=== PATIENT | male | born 1960 | race Caucasian/White ===

== ENCOUNTER 2021-03-10 14:59 | Outpatient (REF) | payer OTHER, SELFPAY ==
[2021-03-10 17:07] LABS: Estimated Average Glucose 194 mg/dL; Hemoglobin A1c % 8.4 %
[2021-03-10 17:15] LABS: Creatinine Urine 122.05 mg/dL; Microalbum/Creatinine Ratio Ur 22.9 ug/mg cr
[2021-03-10 17:18] LABS: Alanine Aminotransferase 50 U/L (0-40); Albumin Level 4.3 g/dL (3.5-5.0); Alkaline Phosphatase 48 U/L (39-117); Anion Gap 14 (12-20); Aspartate Amino Transferase 35 U/L (5-37); Bilirubin Total 2.4 mg/dL (0.0-1.0); Blood Urea Nitrogen 14 mg/dL (9-16); Calcium 9.7 mg/dL (8.4-10.2); Carbon Dioxide 28 mmol/L (22-29); Chloride 99 mmol/L (96-108); Estimated Glomerular Filt Rate > 60; Glucose Random 193 mg/dL (60-115); Potassium 3.6 mmol/L (3.3-5.1); Sodium 137 mmol/L (135-145); Total Protein 6.8 g/dL (6.5-8.0)
[2021-03-11 16:56] LABS: LDL Cholesterol Direct 135 mg/dL (<100)
== END 2021-03-10 15:00 | disposition home or self-care (01) ==
LOC: HO.HMGCLDS 14:59
PROVIDERS: PCP Internal Medicine; Visit Provider Internal Medicine
DX: E13.9 Other specified diabetes mellitus without complications (principal); E66.9 Obesity, unspecified; I10 Essential (primary) hypertension; K21.9 Gastro-esophageal reflux disease without esophagitis
CPT/HCPCS: 36415; 80053; 82043; 83036; 83721

== ENCOUNTER 2021-07-05 09:11 | Outpatient (REF) | payer OTHER, SELFPAY ==
[2021-07-05 11:49] LABS: Estimated Average Glucose 140 mg/dL; Hemoglobin A1c % 6.5 %
[2021-07-05 11:52] LABS: Microalbum/Creatinine Ratio Ur 20.1 ug/mg cr
[2021-07-05 12:15] LABS: Alanine Aminotransferase 51 U/L (0-40); Alkaline Phosphatase 43 U/L (39-117); Anion Gap 13 (12-20); Aspartate Amino Transferase 43 U/L (5-37); Bilirubin Total 1.3 mg/dL (0.0-1.0); Blood Urea Nitrogen 9 mg/dL (9-16); Calcium 9.2 mg/dL (8.4-10.2); Carbon Dioxide 26 mmol/L (22-29); Chloride 101 mmol/L (96-108); Cholesterol 197 mg/dL; Estimated Glomerular Filt Rate > 60; Glucose Fasting 178 mg/dL (60-99); HDL Cholesterol 52 mg/dL; LDL Cholesterol Calculated 124 mg/dl; Potassium 3.6 mmol/L (3.3-5.1); Sodium 136 mmol/L (135-145); Total Protein 6.4 g/dL (6.5-8.0); Triglycerides 109 mg/dL
== END 2021-07-05 09:12 | disposition home or self-care (01) ==
LOC: HO.HMGCLDS 09:11
PROVIDERS: PCP Internal Medicine; Visit Provider Internal Medicine
DX: E66.9 Obesity, unspecified (principal); I10 Essential (primary) hypertension; K21.9 Gastro-esophageal reflux disease without esophagitis; E13.9 Other specified diabetes mellitus without complications
CPT/HCPCS: 36415; 80053; 80061; 82043; 83036

== ENCOUNTER 2021-11-01 10:32 | Outpatient (REF) | payer OTHER, SELFPAY ==
[2021-11-01 11:29] LABS: MANUAL DIFF FLAG NO
[2021-11-01 11:39] LABS: Basophils Percent Auto 0.4 % (0-2); Eosinophils Absolute Auto 0.1 X10*3/uL (0.0-0.4); Eosinophils Percent Auto 1.6 % (0-4); Hematocrit 46.1 % (42.0-52.0); Hemoglobin 16.6 g/dl (14.0-18.0); Imm Gran Abs Auto 0.03 X10*3/uL (0.00-0.03); Imm Gran Pct Auto 0.4 % (0.0-0.4); Lymphocytes Absolute Auto 1.4 X10*3/uL (1.2-4.9); Lymphocytes Percent Auto 18.2 % (20-40); Mean Corpuscular Hemoglobin 31.4 pg (27.0-33.0); Mean Corpuscular Volume 87.1 fL (80.0-98.0); Mean Platelet Volume 10.6 fL (9.4-12.4); Monocytes Absolute Auto 0.6 X10*3/uL (0.1-1.2); Monocytes Percent Auto 8.2 % (2-11); Neutrophils Absolute Auto 5.3 x10*3/uL (2.0-8.3); Neutrophils Percent Auto 71.2 % (45-73); Platelet Count 227 X10*3/uL (160-400); Red Blood Count 5.29 X10*6/uL (4.60-5.80); Red Cell Distribution Width 12.3 % (11.0-16.0); White Blood Count 7.5 X10*3/uL (4.8-10.8)
[2021-11-01 11:53] LABS: Estimated Average Glucose 166 mg/dL; Hemoglobin A1c % 7.4 %
[2021-11-01 12:04] LABS: Creatinine Urine 100.27 mg/dL; Microalbum/Creatinine Ratio Ur 19.9 ug/mg cr
[2021-11-01 12:10] LABS: Alanine Aminotransferase 56 U/L (0-40); Albumin Level 4.2 g/dL (3.5-5.0); Alkaline Phosphatase 47 U/L (39-117); Anion Gap 13 (12-20); Aspartate Amino Transferase 43 U/L (5-37); Bilirubin Total 1.7 mg/dL (0.0-1.0); Blood Urea Nitrogen 11 mg/dL (9-16); Calcium 9.7 mg/dL (8.4-10.2); Carbon Dioxide 31 mmol/L (22-29); Chloride 98 mmol/L (96-108); Estimated Glomerular Filt Rate > 60; Glucose Random 196 mg/dL (60-115); Potassium 3.9 mmol/L (3.3-5.1); Sodium 138 mmol/L (135-145); Total Protein 6.7 g/dL (6.5-8.0)
[2021-11-02 08:26] LABS: LDL Cholesterol Direct 144 mg/dL (<100)
== END 2021-11-01 10:33 | disposition home or self-care (01) ==
LOC: HO.HMGCLDS 10:32
PROVIDERS: Visit Provider Internal Medicine
DX: Z00.01 Encounter for general adult medical examination with abnormal findings (principal); E13.9 Other specified diabetes mellitus without complications; I10 Essential (primary) hypertension; K21.9 Gastro-esophageal reflux disease without esophagitis; E66.09 Other obesity due to excess calories; G47.30 Sleep apnea, unspecified
CPT/HCPCS: 36415; 80053; 82043; 83036; 83721; 85025

== ENCOUNTER → 2022-01-04 10:56 | Outpatient (BNVA) | payer OTHER, SELFPAY | PROVIDERS: PCP Internal Medicine; Referring Provider Internal Medicine; Visit Provider Surgery | DX: Z12.11 Encounter for screening for malignant neoplasm of colon (principal) ==

== ENCOUNTER → 2022-03-02 06:26 | Day surgery (SDC) | payer OTHER, SELFPAY ==
--- NOTE | 2022-02-28 13:32 | HO.ANESPROP2 ---
HPI - Anesthesia Eval Consult details Narrative: New onset afib preop. To ED. 61yo M for Colonoscopy with Poss Polypectomy PMFSH Active Problems Active Problems: All Active Problems (Updated 11/01/21 @ 10:31 by Kristine Perez MD) Colon cancer screening (Acute) Possible alcohol use disorder on screening for alcoholism (Acute) Obesity due to excess calories (Acute) Encounter for general adult medical examination with abnormal findings (Acute) Obesity (Acute) Sleep apnea (Acute) Diabetes 1.5, managed as type 2 (Acute) Chronic GERD (Acute) Hypertension, essential (Acute) Past Medical History Medical History Chronic GERD Diabetes 1.5, managed as type 2 ED (erectile dysfunction) Hypertension, essential Obesity Sleep apnea Tremor of both hands Family History Family History Father No problems noted. Mother No problems noted. Brother No problems noted. Brother No problems noted. Brother No problems noted. Son No problems noted. Daughter No problems noted. Surgical History Surgical History History of colonoscopy Umbilical hernia Social History Social History Housing: House Alcohol intake: current Alcohol intake frequency: a few times a week Alcohol type: beer Patient Tobacco Use Status: Former Tobacco user Tobacco use type: Cigarette e-Cigarette/Vaping Use: Never Used Second Hand Smoke Exposure: No service: Yes Current occupational status: retired Cognitive needs: No Hearing needs: No Vision needs: Yes Meds Allergies Allergy/AdvReac Type Severity Reaction Status Date / Time No Known Allergies Allergy Verified 03/06/22 08:29 Exam Exam Date and Time: February 28, 2022 1332 Pertinent Lab Results Pertinent Lab Results: Laboratory Tests 11/01/21 11/01/21 10:37 10:37 WBC 7.5 Hgb 16.6 Hct 46.1 Plt Count 227 Sodium 138 Potassium 3.9 Chloride 98 Carbon Dioxide 31 H BUN 11 Creatinine 1.07 Assessment and Plan Assessment Anesthesia Assessment: Chart Reviewed
[2022-03-02 06:35] VITALS: BMI 34.8
[2022-03-02 06:49] LABS: Glucose, Whole Blood 158 mg/dL (60-115)
[2022-03-02 06:51] VITALS: BP 138/87; PULSE 86; RESP 16; TEMP 36.1; O2SAT 95
--- NOTE | 2022-03-02 07:26 | ECG_ITS ---
Test Reason : ? new onset afib Blood Pressure : / mmHG Vent. Rate : 081 BPM Atrial Rate : 000 BPM P-R Int : 000 ms QRS Dur : 084 ms QT Int : 410 ms P-R-T Axes : 000 -85 -16 degrees QTc Int : 476 ms Atrial fibrillation Left axis deviation Inferior infarct , age undetermined Cannot rule out anteroseptal infarct Abnormal ECG No previous ECGs available Referred By: Lee Ann Abbott Electronically Signed By:Guillermo Alcantar
--- NOTE | 2022-03-02 07:31 | PC.NURSE ---
Addendum entered by Casey Garcia RN 03/02/22 07:59: report given charge nurse Sherri. Addendum entered by Casey Garcia RN 03/02/22 07:54: ekg confirmed AFIB. Dr. Guerrero at bedside. MD to MD given to ER physician. pt being transferred to ER. Original Note: pt rhythm strip noted to look irregular, no p waves noticed and HR ranging from 60-80's. pt denies any hx of AFIB or cardiac issues. pt denies chest pain, palpitations, SOB or dizziness. Dr. Deshpande at bedside to evaluate. EKG ordered at this time.
== END ==
PROVIDERS: PCP Internal Medicine; Visit Provider Surgery
DX: Z12.11 Encounter for screening for malignant neoplasm of colon (principal); Z53.09 Procedure and treatment not carried out because of other contraindication; I10 Essential (primary) hypertension; I48.91 Unspecified atrial fibrillation; E13.9 Other specified diabetes mellitus without complications; Z79.84 Long term (current) use of oral hypoglycemic drugs; Z87.891 Personal history of nicotine dependence
CPT/HCPCS: 82947; 93005

== ENCOUNTER 2022-03-02 08:20 | Emergency (ER) | payer OTHER, SELFPAY ==
--- NOTE | ~2022-03-02 | XR_ITS ---
EXAMINATION: XR CHEST CLINICAL INFORMATION: New onset atrial fibrillation. COMPARISON: 07/14/2019 chest radiographs. TECHNIQUE: 2 views of the chest were obtained. FINDINGS: No significant abnormality is noted involving the heart, lungs, mediastinum, bony thorax or soft tissues. XR/XR chest 2V IMPRESSION: No acute cardiopulmonary process.
--- NOTE | 2022-03-02 08:30 | ED_ITS ---
HPI - General Adult General Chief complaint: Arrhythmia/Palpitations Stated complaint: new onset afib Time Seen by Provider: 03/02/22 08:30 Source: patient Mode of arrival: ambulatory Limitations: no limitations History of Present Illness HPI narrative: Patient is a 61 year old male presenting to the emergency department today for evaluation of his atrial fibrillation. Patient states that he was getting ready to get a colonoscopy when the net development manager noticed that he was in atrial fibrillation. Patient states that he does not have a history of it and so they sent him down here to be evaluated. Patient states that he has a history of hypertension but no history of heart disease and no family history of heart disease. Patient states that he does not have any bleeding disorders or any family history of bleeding disorders. Patient denies any dizziness, lightheadedness, abdominal pain, nausea, vomiting, fever, chills, blurry vision, double vision, loss of vision, chest pain, difficulty breathing, shortness of breath, back pain, night sweats, pain with urination, increased urinary frequency, increased urinary urgency, blood in his urine or stool, syncope or a near syncopal episode, recent trauma or falls, bowel incontinence, bladder incontinence, bowel retention, bladder retention, or any other complaints at this time. Severity scale (1-10): 1 Relieving factors: none Exacerbating factors: none Associated symptoms: denies other symptoms Treatments prior to arrival: none Related Data Previous Rx's Medication Instructions Recorded amlodipine 10 mg tablet 10 mg PO DAILY #90 tabs 10/04/21 omeprazole 20 mg capsule,delayed 20 mg PO DAILY 90 days #90 caps 01/03/22 release sodium,potassium,mag sulfates 17.5 See Rx Instructions PO .COMPLEX 01/04/22 gram-3.13 gram-1.6 gram oral soln #354 mL (Suprep Bowel Prep Kit) glipizide 2.5 mg-metformin 500 mg 1 tab PO DAILY 90 days #90 tabs 02/05/22 tablet hydrochlorothiazide 25 mg tablet 25 mg PO QAM #90 tabs 02/05/22 losartan 50 mg tablet 50 mg PO DAILY #90 tabs 02/05/22 apixaban 5 mg tablet (Eliquis) 5 mg PO BID #30 tabs 03/02/22 Allergies Allergy/AdvReac Type Severity Reaction Status Date / Time No Known Allergies Allergy Verified 01/04/22 11:06 Review of Systems Constitutional: Constitutional: Reports no additional constitutional complaints, Denies chills, Denies fever(s) and Denies night sweats Eyes: Eyes: Reports no additional eye complaints, Denies blurry vision, Denies change in vision, Denies diplopia, Denies eye discharge, Denies loss of vision and Denies eye pain ENT: Denies dizziness Cardiovascular: Cardiovascular: Reports no additional cardiovascular complaints, Denies chest pain, Denies lightheadedness, Denies Loss of Consciousness and Denies dyspnea Respiratory: Respiratory: Reports no additional respiratory complaints and Denies dyspnea Gastrointestinal: Gastrointestinal: Reports no additional gastrointestinal complaints, Denies abdominal pain, Denies melena, Denies hematochezia, Denies change in bowel habits and Denies change in stool character Genitourinary: Genitourinary: Reports no additional male genitourinary complaints, Denies hematuria, Denies oliguria, Denies difficulty urinating, Denies dysuria, Denies urinary frequency, Denies urinary hesitancy, Denies urinary incontinence and Denies urinary urgency Musculoskeletal: Musculoskeletal: Reports no additional musculoskeletal complaints, Denies numbness and Denies tingling Neurologic: Denies dizziness, Denies loss of vision, Denies numbness and Denies tingling Psychiatric: Psychiatric: Reports no additional psychiatric complaints Endocrine: Endocrine: Reports no additional endocrine complaints Hematologic/Lymphatic: Hematologic/Lymphatic: Reports no additional hematologic/lymphatic complaints Allergic/Immunologic: Allergic/Immunologic: Reports no additional allergic/immunologic complaints [facility] Past Medical History Attestation statement: The following information was validated with the patient. Source: old records reviewed Medical History Chronic GERD Diabetes 1.5, managed as type 2 ED (erectile dysfunction) Hypertension, essential Obesity Sleep apnea Tremor of both hands Surgical History History of colonoscopy Umbilical hernia Family History Family History Father No problems noted. Mother No problems noted. Brother No problems noted. Brother No problems noted. Brother No problems noted. Son No problems noted. Daughter No problems noted. Social History Social History Housing: House Alcohol intake: current Alcohol intake frequency: a few times a week Alcohol type: beer Patient Tobacco Use Status: Former Tobacco user Tobacco use type: Cigarette Second Hand Smoke Exposure: No Current occupational status: retired Physical Exam ED Vital Signs: Vital Signs - 24 hr 03/02/22 08:31 03/02/22 10:00 03/02/22 12:20 Pulse Rate 68 75 66 Respiratory Rate 18 14 16 Blood Pressure 129/94 H 126/82 110/72 Pulse Oximetry 96 98 97 Oxygen Delivery Method Room Air Room Air Room Air Const General: cooperative, no acute distress, alert and awake Nutritional Appearance: well nourished Orientation/consciousness: patient oriented x3 Limitations: no limitations HENMT Head: Yes normal to inspection and Yes atraumatic Ears: hearing grossly normal bilaterally and external ears normal General nose exam: Normal external nose present, no nasal discharge noted and no epistaxis Face and sinus: Yes normal facial exam, No abrasion and No laceration Mouth: Normal oral and palatal mucosa present, no drooling and no muffled voice Eyes General: appearance normal, both eyes and all related structures Periorbital: periorbital findings normal Eyelids: Yes eyelids normal Conjunctivae: conjunctivae normal Pupils: Equal, round and reactive pupils present EOM: EOMs intact bilaterally Neck Neck: Yes normal visual inspection, Yes full ROM and Yes no lymphadenopathy Chest Chest palpation & inspection: normal inspection of the chest Resp Effort & Inspection: normal respiratory effort and able to speak in complete sentences Auscultation: clear to auscultation bilaterally Cardio Rate: regular rate Rhythm: abnormal rhythm irregularly irregular GI Inspection: Yes normal to inspection Neuro General: patient oriented x3 and moves all extremities Cranial nerves: Yes Equal, round and reactive pupils present Cognition (Neuro): normal cognition Motor exam (neuro): 5/5 motor strength present throughout Sensory Exam: Normal double simultaneous stimulation for sensation Coordination: [id number] test normal Extrem General: Yes normal to inspection, Yes full ROM and Yes capillary refill normal Psych Appearance: grossly normal Mental Status: mental status grossly normal Affect: normal affect Attitude: cooperative Thought process: Normal thought process present Thought content: Normal thought content present Insight: Good insight present (Psych) Medical Decision Making MDM Narrative Medical decision making narrative: Patient is a 61 year old male presenting to the emergency department today for atrial fibrillation evaluation. Patient's physical exam showed atrial fibrillation at a normal rate but was otherwise unremarkable. Patient's blood work was unremarkable. Patient's urine showed no acute process. Patient's EKG showed atrial fibrillation. Patient's chest x-ray showed no acute process. I spoke to Dr. Alcantar, the net development manager fractionation plant supervisor, who recommended the patient be started on Elqiuis 5mg BID and follow up with him in the office on an outpatient basis. I explained my physical exam findings as well as all test results to the patient. I answered all questions asked by the patient. I stressed the importance of the patient taking his medication as prescribed. I stressed the importance of the patient following up with his primary care provider and a net development manager. I stressed the importance of the patient returning to the emergency department immediately if his symptoms were to worsen or if he were to develop any dizziness, shortness of breath, difficulty breathing, chest pain, blurry vision, loss of vision, nausea, vomiting, abdominal pain, fever, chills, back pain, or any other complaints. Patient verbalized agreement and understanding with this treatment plan and discharge. Differential Diagnosis Differential Diagnosis: atrial fibrillation Medical Records Medical records reviewed: Yes I reviewed the patient's medical records. Lab Data Lab results reviewed: Yes I reviewed the patient's lab results. Result diagrams: 03/02/22 08:48 03/02/22 08:48 Labs: Lab Results 03/02/22 03/02/22 03/02/22 Range/Units 08:48 08:48 08:48 WBC 7.1 (4.8-10.8) X10*3/uL RBC 5.01 (4.60-5.80) X10*6/uL Hgb 15.7 (14.0-18.0) g/dl Hct 43.2 (42.0-52.0) % MCV 86.2 (80.0-98.0) fL MCH 31.3 (27.0-33.0) pg MCHC 36.3 H (31.0-36.0) g/dl RDW 11.9 (11.0-16.0) % Plt Count 180 (160-400) X10*3/uL MPV 10.1 (9.4-12.4) fL Immature Gran % (Auto) 0.3 (0.0-0.4) % Neut % (Auto) 74.7 H (45-73) % Lymph % (Auto) 14.2 L (20-40) % [place] % (Auto) 9.4 (2-11) % Eos % (Auto) 1.0 (0-4) % Baso % (Auto) 0.4 (0-2) % Lymph # (Auto) 1.0 L (1.2-4.9) X10*3/uL [place] # (Auto) 0.7 (0.1-1.2) X10*3/uL Eos # (Auto) 0.1 (0.0-0.4) X10*3/uL Baso # (Auto) 0.0 (0.0-0.2) X10*3/uL Abs Immat Gran (auto) 0.02 (0.00-0.03) X10*3/uL Absolute Neuts (auto) 5.3 (2.0-8.3) x10*3/uL Absolute Nucleated RBC 0.000 (0.0-0.012) X10*3/uL Nucleated RBC % (auto) 0.0 (0.0-0.2) /100WBC PT 12.3 (10.0-13.1) SEC INR 1.1 (0.9-1.1) APTT 34.9 (24.1-38.0) SEC Sodium 135 (135-145) mmol/L Potassium 3.7 (3.3-5.1) mmol/L Chloride 100 (96-108) mmol/L Carbon Dioxide 23 (22-29) mmol/L Anion Gap 16 (12-20) BUN 10 (9-16) mg/dL Creatinine 0.76 (0.5-1.4) mg/dL Estim Creat Clear Calc TNP Estimated GFR > 60 Random Glucose 155 H (60-115) mg/dL Calcium 8.4 D (8.4-10.2) mg/dL Magnesium 1.7 (1.6-2.6) mg/dL Total Bilirubin 1.6 H (0.0-1.0) mg/dL AST 48 H (5-37) U/L ALT 55 H (0-40) U/L Alkaline Phosphatase 32 L D (39-117) U/L Troponin I High Sens (<3.5-35.0) ng/L Total Protein 5.3 L D (6.5-8.0) g/dL Albumin 3.4 L (3.5-5.0) g/dL Urine Color Urine Appearance Urine pH (5.0-8.0) Ur Specific [place] (1.005-1.025) Urine Protein (NEG-TRACE) MG/DL Urine Glucose (UA) (NEG) MG/DL Urine Ketones (NEG) MG/DL Urine Blood (NEG) Urine Nitrite (NEG) Ur Leukocyte Esterase (NEG) COVID-19 ([facility]) (Negative) COVID-19 Clin Com 03/02/22 03/02/22 03/02/22 Range/Units 08:48 08:48 11:27 WBC (4.8-10.8) X10*3/uL RBC (4.60-5.80) X10*6/uL Hgb (14.0-18.0) g/dl Hct (42.0-52.0) % MCV (80.0-98.0) fL MCH (27.0-33.0) pg MCHC (31.0-36.0) g/dl RDW (11.0-16.0) % Plt Count (160-400) X10*3/uL MPV (9.4-12.4) fL Immature Gran % (Auto) (0.0-0.4) % Neut % (Auto) (45-73) % Lymph % (Auto) (20-40) % [place] % (Auto) (2-11) % Eos % (Auto) (0-4) % Baso % (Auto) (0-2) % Lymph # (Auto) (1.2-4.9) X10*3/uL [place] # (Auto) (0.1-1.2) X10*3/uL Eos # (Auto) (0.0-0.4) X10*3/uL Baso # (Auto) (0.0-0.2) X10*3/uL Abs Immat Gran (auto) (0.00-0.03) X10*3/uL Absolute Neuts (auto) (2.0-8.3) x10*3/uL Absolute Nucleated RBC (0.0-0.012) X10*3/uL Nucleated RBC % (auto) (0.0-0.2) /100WBC PT (10.0-13.1) SEC INR (0.9-1.1) APTT (24.1-38.0) SEC Sodium (135-145) mmol/L Potassium (3.3-5.1) mmol/L Chloride (96-108) mmol/L Carbon Dioxide (22-29) mmol/L Anion Gap (12-20) BUN (9-16) mg/dL Creatinine (0.5-1.4) mg/dL Estim Creat Clear Calc Estimated GFR Random Glucose (60-115) mg/dL Calcium (8.4-10.2) mg/dL Magnesium (1.6-2.6) mg/dL Total Bilirubin (0.0-1.0) mg/dL AST (5-37) U/L ALT (0-40) U/L Alkaline Phosphatase (39-117) U/L Troponin I High Sens < 3.5 (<3.5-35.0) ng/L Total Protein (6.5-8.0) g/dL Albumin (3.5-5.0) g/dL Urine Color YELLOW Urine Appearance CLEAR Urine pH 6.0 (5.0-8.0) Ur Specific [place] 1.015 (1.005-1.025) Urine Protein NEG (NEG-TRACE) MG/DL Urine Glucose (UA) NEG (NEG) MG/DL Urine Ketones 5 (NEG) MG/DL Urine Blood NEG (NEG) Urine Nitrite NEG (NEG) Ur Leukocyte Esterase NEG (NEG) COVID-19 ([facility]) Negative (Negative) COVID-19 Clin Com See Note Imaging Data Chest x-ray: Attestation: I personally reviewed and interpreted this imaging study as follows: My impression: No acute process. Radiologist's impression: EXAMINATION: XR CHEST CLINICAL INFORMATION: New onset atrial fibrillation. COMPARISON: 07/14/2019 chest radiographs. TECHNIQUE: 2 views of the chest were obtained. FINDINGS: No significant abnormality is noted involving the heart, lungs, mediastinum, bony thorax or soft tissues. XR/XR chest 2V IMPRESSION: No acute cardiopulmonary process. Dictated By: Santi Hook MD Signed By: Electronically signed by Santi Hook MD 03/02/22 1200 ECG Data Attestation: I personally reviewed and interpreted this ECG as follows: Prior ECG tracings: available for review Interpretation: Vent. Rate: 075 BPM ? ? Atrial Rate: 000 BPM P-R Int: 000 ms? QRS Dur: 098 ms QT Int: 402 ms ? ? ? P-R-T Axes: 000 259 112 degrees QTc Int: 448 ms ? Atrial fibrillation Right superior axis deviation Inferior infarct (cited on or before 02-MAR-2022) Possible Anterior infarct (cited on or before 02-MAR-2022) Abnormal ECG When compared with ECG of 02-MAR-2022 07:38, Nonspecific T wave abnormality, worse in Lateral leads DD/ [id number] Discharge Plan Discharge Clinical Impression: Atrial fibrillation Patient Disposition: Home, Self-Care Instructions: A-fib (Atrial Fibrillation) (DC), Blood Thinners (ED) Additional Instructions: Follow up with your primary care provider and a net development manager. Return to the emergency department immediately if you develop any dizziness, shortness of breath, difficulty breathing, chest pain, blurry vision, loss of vision, nausea, vomiting, abdominal pain, fever, chills, back pain, or any other complaints. Prescriptions: New Eliquis 5 mg tablet 5 mg PO BID Qty: 30 0RF No Action amlodipine 10 mg tablet 10 mg PO DAILY Qty: 90 3RF omeprazole 20 mg capsule,delayed release(DR/EC) 20 mg PO DAILY 90 Days Qty: 90 0RF glipizide-metformin 2.5-500 mg tablet 1 tab PO DAILY 90 Days Qty: 90 3RF hydrochlorothiazide 25 mg tablet 25 mg PO QAM Qty: 90 0RF losartan 50 mg tablet 50 mg PO DAILY Qty: 90 0RF Suprep Bowel Prep Kit 17.5-3.13-1.6 gram recon soln See Rx Instructions PO .COMPLEX Qty: 354 0RF Rx Instructions: DILUTE; drink full amount early evening before AND next morning at least 2 hr before procedure; follow w 32 oz. water PO Referrals: [facility] [Provider Group] (Call to follow up with cardiology. The net development manager you saw in the hospital today was Dr. Alcantar. ) Kristine Perez MD [Primary Care Provider] - (Follow up with your primary care provider. ) Interventions: ED Discharge Assessment Last Done: 03/02/22 12:59 Discharge Date/Time: 03/02/22 12:45 Print Language: Mexican
--- NOTE | 2022-03-02 08:30 | ECG_ITS ---
Test Reason : arrhythmia Blood Pressure : / mmHG Vent. Rate : 075 BPM Atrial Rate : 000 BPM P-R Int : 000 ms QRS Dur : 098 ms QT Int : 402 ms P-R-T Axes : 000 259 112 degrees QTc Int : 448 ms Atrial fibrillation Right superior axis deviation Inferior infarct (cited on or before 02-MAR-2022) Possible Anterior infarct (cited on or before 02-MAR-2022) Abnormal ECG When compared with ECG of 02-MAR-2022 07:38, Nonspecific T wave abnormality, worse in Lateral leads Referred By: Marce Busby Electronically Signed By:Guillermo Alcantar
[2022-03-02 08:31] VITALS: BP 129/94; PULSE 68; RESP 18; O2SAT 96
[2022-03-02 08:53] LABS: MANUAL DIFF FLAG NO
[2022-03-02 08:54] LABS: Basophils Percent Auto 0.4 % (0-2); Eosinophils Absolute Auto 0.1 X10*3/uL (0.0-0.4); Hematocrit 43.2 % (42.0-52.0); Hemoglobin 15.7 g/dl (14.0-18.0); Imm Gran Abs Auto 0.02 X10*3/uL (0.00-0.03); Imm Gran Pct Auto 0.3 % (0.0-0.4); Lymphocytes Percent Auto 14.2 % (20-40); Mean Corpuscular HGB Conc 36.3 g/dl (31.0-36.0); Mean Corpuscular Hemoglobin 31.3 pg (27.0-33.0); Mean Corpuscular Volume 86.2 fL (80.0-98.0); Mean Platelet Volume 10.1 fL (9.4-12.4); Monocytes Absolute Auto 0.7 X10*3/uL (0.1-1.2); Monocytes Percent Auto 9.4 % (2-11); Neutrophils Absolute Auto 5.3 x10*3/uL (2.0-8.3); Neutrophils Percent Auto 74.7 % (45-73); Platelet Count 180 X10*3/uL (160-400); Red Blood Count 5.01 X10*6/uL (4.60-5.80); Red Cell Distribution Width 11.9 % (11.0-16.0); White Blood Count 7.1 X10*3/uL (4.8-10.8)
[2022-03-02 08:59] LABS: INTERNATIONAL NORM RATIO 1.1 (0.9-1.1); Prothrombin Time 12.3 SEC (10.0-13.1)
[2022-03-02 09:02] LABS: Partial Thromboplastin Time 34.9 SEC (24.1-38.0)
[2022-03-02 09:08] LABS: Alanine Aminotransferase 55 U/L (0-40); Albumin Level 3.4 g/dL (3.5-5.0); Alkaline Phosphatase 32 U/L (39-117); Anion Gap 16 (12-20); Aspartate Amino Transferase 48 U/L (5-37); Bilirubin Total 1.6 mg/dL (0.0-1.0); Blood Urea Nitrogen 10 mg/dL (9-16); Calcium 8.4 mg/dL (8.4-10.2); Carbon Dioxide 23 mmol/L (22-29); Chloride 100 mmol/L (96-108); Estimated Glomerular Filt Rate > 60; Glucose Random 155 mg/dL (60-115); Magnesium 1.7 mg/dL (1.6-2.6); Potassium 3.7 mmol/L (3.3-5.1); Sodium 135 mmol/L (135-145); Total Protein 5.3 g/dL (6.5-8.0)
[2022-03-02 09:11] LABS: COVID-19 Test Negative (Negative); IDNOW Serial# 16C4AD1C
[2022-03-02 09:14] LABS: Troponin-I High Sensitivity < 3.5 ng/L (<3.5-35.0)
[2022-03-02 10:00] VITALS: BP 126/82; PULSE 75; RESP 14; O2SAT 98
[2022-03-02 10:07] VITALS: PULSE 68
--- NOTE | 2022-03-02 10:36 | PM.CNCAR ---
History of Present Illness History of Present Illness Date of Service: 03/02/22 Chief complaint: new onset afib Narrative: Pleasant 61-year-old gentleman who came for screening colonoscopy and was noted to be in atrial fibrillation. His rates are well controlled. He has no symptoms. Sent to the emergency department further workup. Denying chest pain or shortness of breath. He has not been as active as he was last year. He has not started biking which he was doing last year. With his day-to-day activities he has not noticed any significant shortness of breath or fatigue. He has diabetes and hypertension. No bleeding issues in the past. [facility] Past Medical History Medical History Chronic GERD Diabetes 1.5, managed as type 2 ED (erectile dysfunction) Hypertension, essential Obesity Sleep apnea Tremor of both hands Family History Family History Father No problems noted. Mother No problems noted. Brother No problems noted. Brother No problems noted. Brother No problems noted. Son No problems noted. Daughter No problems noted. Surgical History Surgical History History of colonoscopy Umbilical hernia Social History Social History Housing: House Alcohol intake: current Alcohol intake frequency: a few times a week Alcohol type: beer Patient Tobacco Use Status: Former Tobacco user Tobacco use type: Cigarette Second Hand Smoke Exposure: No Use of substances other than those prescribed or required for medical reasons: No Advance Directives: No Advance Directives Information Provided: Yes Current occupational status: retired [employer] Allergies Allergy/AdvReac Type Severity Reaction Status Date / Time No Known Allergies Allergy Verified 01/04/22 11:06 Physical Exam Vital Signs: Vital Signs: Last Vital Signs Pulse 75 03/02/22 10:00 Resp 14 03/02/22 10:00 BP 126/82 03/02/22 10:00 Pulse Ox 98 03/02/22 10:00 O2 Del Method 03/02/22 10:00 GENERAL APPEARANCE: in no acute distress, pleasant. NECK: no carotid bruit, no jugular venous distention. SKIN: no suspicious lesions, warm and dry. HEART: no murmurs, irregularly irregular rate and rhythm. LUNGS: clear to auscultation bilaterally. ABDOMEN: soft, nontender. EXTREMITIES: no edema. PERIPHERAL PULSES: equal. NEUROLOGIC: No gross deficits, AAO X 3 Objective Labs and Meds Result diagrams: 03/02/22 08:48 03/02/22 08:48 Lab results: Laboratory Results - last 24 hr 03/02/22 03/02/22 03/02/22 08:48 08:48 08:48 WBC 7.1 RBC 5.01 Hgb 15.7 Hct 43.2 MCV 86.2 MCH 31.3 MCHC 36.3 H RDW 11.9 Plt Count 180 MPV 10.1 Immature Gran % (Auto) 0.3 Neut % (Auto) 74.7 H Lymph % (Auto) 14.2 L [place] % (Auto) 9.4 Eos % (Auto) 1.0 Baso % (Auto) 0.4 Lymph # (Auto) 1.0 L [place] # (Auto) 0.7 Eos # (Auto) 0.1 Baso # (Auto) 0.0 Abs Immat Gran (auto) 0.02 Absolute Neuts (auto) 5.3 Absolute Nucleated RBC 0.000 Nucleated RBC % (auto) 0.0 PT 12.3 INR 1.1 APTT 34.9 Sodium 135 Potassium 3.7 Chloride 100 Carbon Dioxide 23 Anion Gap 16 BUN 10 Creatinine 0.76 Estim Creat Clear Calc TNP Estimated GFR > 60 Random Glucose 155 H Calcium 8.4 D Magnesium 1.7 Total Bilirubin 1.6 H AST 48 H ALT 55 H Alkaline Phosphatase 32 L D Troponin I High Sens Total Protein 5.3 L D Albumin 3.4 L COVID-19 ([facility]) COVID-19 Clin Com 03/02/22 03/02/22 08:48 08:48 WBC RBC Hgb Hct MCV MCH MCHC RDW Plt Count MPV Immature Gran % (Auto) Neut % (Auto) Lymph % (Auto) [place] % (Auto) Eos % (Auto) Baso % (Auto) Lymph # (Auto) [place] # (Auto) Eos # (Auto) Baso # (Auto) Abs Immat Gran (auto) Absolute Neuts (auto) Absolute Nucleated RBC Nucleated RBC % (auto) PT INR APTT Sodium Potassium Chloride Carbon Dioxide Anion Gap BUN Creatinine Estim Creat Clear Calc Estimated GFR Random Glucose Calcium Magnesium Total Bilirubin AST ALT Alkaline Phosphatase Troponin I High Sens < 3.5 Total Protein Albumin COVID-19 ([facility]) Negative COVID-19 Clin Com See Note Assessment and Plan (1) PAF (paroxysmal atrial fibrillation): Status: Acute Plan Pleasant 61-year-old gentleman who is presenting for new onset atrial fibrillation. He is asymptomatic. Rate controlled currently. Clinically not in heart failure. Chads Vasc is 2 and he should be started on anticoagulation with Eliquis or Xarelto. Can go home. We will arrange echocardiogram and 3 days Holter monitor for him and bring him in the office. Thank you for allowing me to participate in the care of your patient. Please feel free to contact me if you have any questions. Procedures Date of Service Date of Service: 03/02/22
[2022-03-02 11:36] LABS: Appearance Urine CLEAR; Color Urine YELLOW; Glucose Urine UA NEG (NEG); Leukocyte Esterase Urine NEG (NEG); Nitrite Urine NEG (NEG); Specific Gravity - Urine 1.015 (1.005-1.025); Urine Blood NEG (NEG); Urine Ketones 5 MG/DL (NEG); Urine Protein NEG (NEG-TRACE)
[2022-03-02 12:20] VITALS: BP 110/72; PULSE 66; RESP 16; O2SAT 97
== END 2022-03-02 12:45 | disposition home or self-care (01) ==
PROVIDERS: Physician Assistant Medical; Emergency Provider Emergency Medicine; PCP Internal Medicine
DX: I48.91 Unspecified atrial fibrillation (principal); Z20.822 Contact with and (suspected) exposure to COVID-19; I10 Essential (primary) hypertension; E13.9 Other specified diabetes mellitus without complications; Z87.891 Personal history of nicotine dependence
CPT/HCPCS: 71046; 80053; 81003; 83735; 84484; 85025; 85610; 85730; 87635; 93005; 99284

== ENCOUNTER → 2022-03-08 14:46 | Outpatient (REF) | payer OTHER, SELFPAY ==
--- NOTE | 2022-03-08 14:54 | CA_ITS ---
Transthoracic Echocardiogram Patient (Last, First, Middle): Nolan Nj, Gender: Male Date of : 1960 Age: 61 Procedure Date: 03/08/2022 Procedure Type: Transthoracic Echocardiogram Location: OP Height: 180.34 cm Weight: 113.4 kg BSA: 2.32 m2 Heart Rate: bpm BP: 134 / 78 mmHg Consumer Affairs Specialist: [place] Referring MD: Guillermo Alcantar MD Cover Cutter Machine: Shai Beckman MD Symptoms: I48.0 - Paroxysmal atrial fibrillation Study Quality: Fair ECG Rhythm: Atrial Fibrillation Conclusions: - 1. Normal LV systolic function with LVEF of 60 65% 2. Mildly dilated left atrium 3. Normal cardiac valvular Doppler 4. No gross pericardial effusion Findings Left Ventricle Normal left ventricular size, thickness, and systolic function. The visually estimated ejection fraction is between 60-65%. Diastolic function is indeterminate on the basis of available data. E/E prime ratio is between 8 and 15 consistent with indeterminate filling pressures. Right Ventricle Normal right ventricular cavity size. Atria The left atrium is mildly dilated. Interatrial shunt cannot be excluded. The right atrium was not well visualized. Aortic Valve The aortic valve structure and function is likely normal. There is no aortic valve stenosis. There is no aortic valve regurgitation. Mitral Valve Likely normal mitral valve structure and function. There is trace mitral valve regurgitation. There is no mitral valve stenosis. Pulmonic Valve The pulmonic valve was not well visualized. Tricuspid Valve The tricuspid valve was not well visualized. Tricuspid regurgitation envelope is inadequate for calculation of right ventricular systolic pressure. Normal right atrial pressure. Great Vessels All visible segments of the aorta are normal in size. The pulmonary artery was not well visualized. Venous The inferior vena cava is normal in size and collapses greater than 50% with inspiration. Pericardium/Pleural There is no evidence of pericardial effusion. Prior Study Comparison No prior study available for comparison. Measurements 2D Linear Measurements IVSd: 1.03 0.6-0.9/0.6-1.0 cm LVIDd: 4.93 3.9-5.3/4.2-5.9 cm LVIDd Index: 2.13 2.4-3.2/2.2-3.1 cm/m2 LVIDs: 3.12 2.0-3.6 cm LVPWd: 1.01 0.7-1.1 cm LA Diam: 4.20 2.7-3.8/3.0-4.0 cm LAIDs Index: 1.81 1.5-2.3 cm/m2 LV Mass: 227.54 67-162/88-224 g LV Mass Index: 98.08 43-95/49-115 g/m2 LVOT Diam: 2.20 3.0+(-)1.3 cm 2D Systolic Function EF 4C: 59.70 >55% EF 2C: 65.90 >55% EF BiP: 62.70 >55% Mitral Valve MV Pk E: 1.20 MV Decel Time: 189.00 E'Lateral: 10.00 E'Medial: 9.68 E/E' Med: 12.40 E/E' Lat: 12.00 PHT: 55.00 MVA PHT: 4.00 Decel Williams: 6.36 Aortic Valve AoV Pk Perfecto: 1.47 AoV Mn Perfecto: 0.95 AoV VTI: 0.30 AoV Pk Grad: 9.00 Aov Mn Grad: 4.00 CAMPOS Cont.VTI: 2.47 LVOT LVOT Pk Perfecto: 0.93 LVOT Mn Perfecto: 0.62 LVOT VTI: 0.20 LVOT Pk Grad: 3.00 LVOT Mn Grad: 2.00 LVOT Diam: 2.20 LVOT Area: 3.80 Diastolic Function MV Pk E: 1.20 E'Medial: 9.68 E/E' Med: 12.40 E' Laterial: 10.00 E/E' Lat: 12.00 Right Ventricle TAPSE (mm): 21.40 TVS' Perfecto: 13.40 Tricuspid Valve RA Press: 3.00 Great Vessels Aorta Sinus of Valsalva: 3.60 2.0-3.[address] [place]: 2.99 1.7-3.4 cm Ao Asc: 3.30 2.1-3.4 cm Updated in Other Vendor System with Status of Final Shai Beckman MD electronically signed on 03/09/2022 11:34:47 AM with status of Final
--- NOTE | 2022-03-08 14:54 | HM_ITS ---
Conclusion: 1. Patient was monitored for total period of 3 days and 8 hours 2. Baseline was atrial fibrillation with average heart of 60 beats per minute with good heart rate control 3. No significant pauses or bradycardia noted 4. Seven episodes of 3-4 beat donya of nonsustained VT, fastest 156 beats per minute 5. Total of 187 PVCs accounting for 0.06% of total beats account for rare PVCs 6. No patient reported events MTDD
== END ==
LOC: HO.CARD 14:46
PROVIDERS: PCP Internal Medicine; Visit Provider Internal Medicine Cardiovascular Disease
DX: I48.0 Paroxysmal atrial fibrillation (principal)
CPT/HCPCS: 93242; 93306

== ENCOUNTER → 2022-04-25 14:06 | Outpatient (BNVA) | payer OTHER, SELFPAY | PROVIDERS: PCP Internal Medicine; Referring Provider Internal Medicine; Visit Provider Internal Medicine Cardiovascular Disease | DX: I48.0 Paroxysmal atrial fibrillation (principal) | CPT/HCPCS: 93005; 99212 ==

== ENCOUNTER → 2022-06-27 13:25 | Outpatient (BNVA) | payer OTHER, SELFPAY | PROVIDERS: PCP Internal Medicine; Referring Provider Internal Medicine; Visit Provider Internal Medicine Cardiovascular Disease | DX: I48.0 Paroxysmal atrial fibrillation (principal); I10 Essential (primary) hypertension | CPT/HCPCS: 93005; 99212 ==

== ENCOUNTER 2022-06-29 06:25 | Day surgery (SDC) | payer OTHER, SELFPAY ==
--- NOTE | 2022-06-28 08:53 | HO.ANESPROP2 ---
Documented by User: Betzaida Jo NP 06/28/22 08:56 HPI - Anesthesia Eval Consult details Narrative: 61yo M for Colonoscopy Per cardiology, low to intermed risk, will plan cardioversion after resuming eliquis post-colo Previously found new afib preop 02/2022 Eliquis for afib PMFSH Active Problems Active Problems: All Active Problems (Updated 03/06/22 @ 09:06 by Kristine Perez MD) Hospital discharge follow-up (Acute) New onset atrial fibrillation (Acute) PAF (paroxysmal atrial fibrillation) (Acute) Colon cancer screening (Acute) Possible alcohol use disorder on screening for alcoholism (Acute) Obesity due to excess calories (Acute) Encounter for general adult medical examination with abnormal findings (Acute) Obesity (Acute) Sleep apnea (Acute) Diabetes 1.5, managed as type 2 (Acute) Chronic GERD (Acute) Hypertension, essential (Acute) Past Medical History Medical History Chronic GERD Diabetes 1.5, managed as type 2 ED (erectile dysfunction) Hypertension, essential Obesity Sleep apnea Tremor of both hands Family History Family History Father No problems noted. Mother No problems noted. Brother No problems noted. Brother No problems noted. Brother No problems noted. Son No problems noted. Daughter No problems noted. Surgical History Surgical History History of colonoscopy Umbilical hernia Social History Social History Housing: House Alcohol intake: current Alcohol intake frequency: former alcohol drinker Alcohol type: beer Patient Tobacco Use Status: Former Tobacco user Quit Date: 1989 Tobacco use type: Cigarette Years Smoked: 20 +/- e-Cigarette/Vaping Use: Never Used Second Hand Smoke Exposure: No Use of substances other than those prescribed or required for medical reasons: No Are you DNR?: No Advance Directives: No Advance Directives Information Provided: Yes Recently lost weight without trying: No service: Yes Current occupational status: retired Cognitive needs: No Hearing needs: No Vision needs: Yes Meds Allergies Allergy/AdvReac Type Severity Reaction Status Date / Time No Known Allergies Allergy Verified 06/27/22 13:34 Home Medications Medication Instructions Recorded Confirmed Last Taken Type amlodipine 10 mg tablet 10 mg PO BEDTIME 06/29/22 06/29/22 06/29/22 History glipizide 2.5 mg-metformin 500 mg 1 tab PO BEDTIME 06/29/22 06/29/22 Unknown History tablet Exam Exam Date and Time: June 28, 2022 0853 Pertinent Lab Results Pertinent Lab Results: Laboratory Tests 03/02/22 03/02/22 08:48 08:48 WBC 7.1 Hgb 15.7 Hct 43.2 Plt Count 180 Sodium 135 Potassium 3.7 Chloride 100 Carbon Dioxide 23 BUN 10 Creatinine 0.76 Narrative Narrative: EKG 03/2022 Atrial fibrillation 67 beats per minute, cannot rule out septal infarct, interval 426 milliseconds ECHO 02/2022 Conclusions: - 1. Normal LV systolic function with LVEF of 60 65% ? 2. Mildly dilated left atrium? 3. Normal cardiac valvular Doppler ? 4. No gross pericardial effusion ? ? ? Assessment and Plan Assessment Anesthesia Assessment: Chart Reviewed Documented by User: Gui Mckeon MD 06/29/22 07:19 COUNT INCLUDES THE [facility] Past Medical History Medical History Chronic GERD Diabetes 1.5, managed as type 2 ED (erectile dysfunction) Hypertension, essential Obesity Sleep apnea Tremor of both hands Family History Family History Father No problems noted. Mother No problems noted. Brother No problems noted. Brother No problems noted. Brother No problems noted. Son No problems noted. Daughter No problems noted. Family history of problems with anesthesia: No Surgical History Surgical History History of colonoscopy Umbilical hernia History of Problems with Anesthesia: No Social History Social History Housing: House Alcohol intake: current Alcohol intake frequency: former alcohol drinker Alcohol type: beer Patient Tobacco Use Status: Former Tobacco user Quit Date: 1989 Tobacco use type: Cigarette Years Smoked: 20 +/- e-Cigarette/Vaping Use: Never Used Second Hand Smoke Exposure: No Use of substances other than those prescribed or required for medical reasons: No Are you DNR?: No Advance Directives: No Advance Directives Information Provided: Yes Recently lost weight without trying: No service: Yes Current occupational status: retired Cognitive needs: No Hearing needs: No Vision needs: Yes Meds Allergies Allergy/AdvReac Type Severity Reaction Status Date / Time No Known Allergies Allergy Verified 06/27/22 13:34 Home Medications Medication Instructions Recorded Confirmed Last Taken Type amlodipine 10 mg tablet 10 mg PO BEDTIME 06/29/22 06/29/22 06/29/22 History glipizide 2.5 mg-metformin 500 mg 1 tab PO BEDTIME 06/29/22 06/29/22 Unknown History tablet Exam Airway Mallampati Class: II TM Dist: >3cm Neck ROM: Full Loose/Missing/Broken Teeth: No Heart: ok Lungs: ok Assessment and Plan Final Anesthetic Review Family History of Problems with Anesthesia: No History of Problems with Anesthesia: No NPO: Yes ASA Class: III Final Preanesthetic Review: No Changes in Pt Med Stat, Meds/Allgs Chart Reviewed, Consent Obtained/Reviewed and Anes Risks/Benef Reviewed Patient Risk: Intermediate Procedure Risk: Low Anesthetic Plan Anesthetic Plan: MAC: and Agree w/ Assess. and Plan Disposition: Standard PACU
[2022-06-29 06:33] VITALS: BMI 33.2
[2022-06-29 06:38] VITALS: BP 133/94; PULSE 78; RESP 16; TEMP 36.2; O2SAT 98
[2022-06-29 06:54] LABS: Glucose, Whole Blood 160 mg/dL (60-115)
[2022-06-29] MEDS: Lactated Ringers 1,000 ML 100 ML IVCONT (06:54)
--- NOTE | 2022-06-29 07:24 | MHC.SHP ---
Pre-Procedural Eval Section A Date of Service: 06/29/22 Section B Chief Complaint: screening Details of Present Illness: screening colonoscopy, last colonoscopy was 10 years ago; diagnosis of AFib February 2022 Relevant Social History: None Present Medications: see Short Stay Collaborative assessment Medical History: Significant History ( AFib, hypertension, sleep apnea, diabetes) Allergies: Allergies Allergy/AdvReac Type Severity Reaction Status Date / Time No Known Allergies Allergy Verified 06/27/22 13:34 Review of Systems Sugical H&P ROS: Negative: Constitution, Cardiovascular, Respiratory, Neurological, Psychiatric, Hem-Onc, Allergic/Immunologic, Gastrointestinal, Genitourinary, Musculoskeletal, Integumentary, Endocrine and Eyes/Ears/Nose/Throat Exam Surgical H&P Exam: Normal: HEENT, Normal: Lungs, Normal: Extremities, Normal: Abdomen, Normal: Skin and Normal: Neurological and Significant Findings: Heart ( irregular) Plan Diagnosis/Plan: Unchanged I have reviewed the history and physical and performed a pertinent physical examination on my patient. No changes have occurred unless specified.
--- NOTE | 2022-06-29 07:58 | W.PM.OPN ---
Operative Note Operative Note Date of Service: 06/29/22 Narrative: Preop diagnosis: colon cancer screening Postop diagnosis: 1. Mild diverticulosis sigmoid 2. small flat polyp, about 4 cm, mid right colon 3. small polyp about 2 mm, hepatic flexure Procedure: Colonoscopy with polypectomy x2 using cold forceps Surgeon: Perico Jacinto MD The patient is a 61-year-old male here for scheduled screening colonoscopy. He understood the technique of the procedure and was aware of the risks, benefits, and alternatives. The patient was brought to the operating room and placed in left lateral decubitus position under monitored anesthesia care. A surgical time-out was done. A full digital rectal exam was done and this did not reveal any significant anal lesions. The tip of the Olympus colonoscope was gently introduced through the anal orifice advanced with insufflation all the way to the cecum. The cecum was intubated. The cecum was identified by visualization of the ileocecal valve as well as the appendiceal orifice. The cecal mucosa was unremarkable. The scope was gradually withdrawn with careful examination of the entire colonic mucosa being done with scope withdrawal. The patient had adequate bowel prep so it was unlikely that any lesion may have been missed. At the mid to distal part of the right colon was note of a flat polyp about 4 mm in size. This was removed using multiple bites of the cold forceps. In the [place] flexure was note of a small polyp about 3 mm removed also with multiple bites of the cold forceps. There was note of occasional diverticulosis in the sigmoid. The rectum was reached and there were no lesions seen. The anal canal was unremarkable. The scope was then withdrawn completely with desufflation The patient tolerated procedure well. There were no immediate complications. His next colonoscopy may be in the next five years depending on the path report.
[2022-06-29 08:06] VITALS: BP 98/70; PULSE 73; RESP 24; TEMP 36.7; O2SAT 94
[2022-06-29 08:21] VITALS: BP 101/72; PULSE 65; RESP 16; TEMP 36.7; O2SAT 97
== END 2022-06-29 08:45 | disposition home or self-care (01) ==
PROVIDERS: PCP Internal Medicine; Visit Provider Surgery
PROC: 0DJD8ZZ Inspection of Lower Intestinal Tract, Via Natural or Artificial Opening Endoscopic (ICD-10-PCS; CPT 45378; principal; 2022-06-29 07:30)
DX: Z12.11 Encounter for screening for malignant neoplasm of colon (principal); D12.3 Benign neoplasm of transverse colon; K63.5 Polyp of colon; K57.30 Diverticulosis of large intestine without perforation or abscess without bleeding; K21.9 Gastro-esophageal reflux disease without esophagitis; E13.9 Other specified diabetes mellitus without complications; I10 Essential (primary) hypertension; R25.1 Tremor, unspecified; N52.9 Male erectile dysfunction, unspecified; Z79.899 Other long term (current) drug therapy; Z79.84 Long term (current) use of oral hypoglycemic drugs; Z87.891 Personal history of nicotine dependence
CPT/HCPCS: 45380; 82947; 88305

== ENCOUNTER → 2022-07-03 07:55 | Outpatient (BNVA) | payer OTHER, SELFPAY | PROVIDERS: PCP Internal Medicine; Visit Provider Nurse Practitioner Family | DX: G47.30 Sleep apnea, unspecified (principal); E66.09 Other obesity due to excess calories; I48.91 Unspecified atrial fibrillation; Z68.34 Body mass index [BMI] 34.0-34.9, adult | CPT/HCPCS: 99202 ==

== ENCOUNTER 2022-07-16 08:33 | Outpatient (REF) | payer OTHER, SELFPAY ==
--- NOTE | ~2022-07-16 | XR_ITS ---
EXAMINATION: XR SHOULDER, RIGHT CLINICAL INFORMATION: Muscle strain COMPARISON: Previous x-ray September 2012 TECHNIQUE: Three views of the right shoulder. FINDINGS: Bone alignment is normal. No fracture or dislocation. There is arthritis at the glenohumeral joint with large inferior bony osteophytes. There is mild arthritis at the acromioclavicular joint. There is soft tissue calcification adjacent to the greater tuberosity suggestive of calcific tendinitis or bursitis. XR/XR shoulder RT min 2V IMPRESSION: Degenerative changes at the glenohumeral and acromioclavicular joints. Soft tissue calcification suggestive of calcific tendinitis or bursitis.
[2022-07-16 11:30] LABS: MANUAL DIFF FLAG NO
[2022-07-16 11:56] LABS: Basophils Absolute Auto 0.1 X10*3/uL (0.0-0.2); Basophils Percent Auto 0.4 % (0-2); Eosinophils Absolute Auto 0.1 X10*3/uL (0.0-0.4); Eosinophils Percent Auto 0.8 % (0-4); Hematocrit 51.6 % (42.0-52.0); Hemoglobin 17.9 g/dl (14.0-18.0); Imm Gran Abs Auto 0.04 X10*3/uL (0.00-0.03); Imm Gran Pct Auto 0.3 % (0.0-0.4); Lymphocytes Absolute Auto 1.5 X10*3/uL (1.2-4.9); Lymphocytes Percent Auto 11.7 % (20-40); Mean Corpuscular HGB Conc 34.7 g/dl (31.0-36.0); Mean Corpuscular Hemoglobin 28.7 pg (27.0-33.0); Mean Corpuscular Volume 82.8 fL (80.0-98.0); Mean Platelet Volume 11.3 fL (9.4-12.4); Monocytes Absolute Auto 0.8 X10*3/uL (0.1-1.2); Neutrophils Absolute Auto 10.2 x10*3/uL (2.0-8.3); Neutrophils Percent Auto 80.8 % (45-73); Platelet Count 265 X10*3/uL (160-400); Red Blood Count 6.23 X10*6/uL (4.60-5.80); Red Cell Distribution Width 12.4 % (11.0-16.0); White Blood Count 12.6 X10*3/uL (4.8-10.8)
[2022-07-16 12:06] LABS: Alanine Aminotransferase 17 U/L (0-40); Albumin Level 4.6 g/dL (3.5-5.0); Alkaline Phosphatase 48 U/L (39-117); Anion Gap 14 (12-20); Aspartate Amino Transferase 15 U/L (5-37); Blood Urea Nitrogen 12 mg/dL (9-16); Carbon Dioxide 30 mmol/L (22-29); Chloride 98 mmol/L (96-108); Cholesterol 214 mg/dL; Estimated Glomerular Filt Rate > 60; Glucose Fasting 197 mg/dL (60-99); HDL Cholesterol 53 mg/dL; LDL Cholesterol Calculated 135 mg/dl; Potassium 4.2 mmol/L (3.3-5.1); Sodium 138 mmol/L (135-145); Total Protein 7.1 g/dL (6.5-8.0); Triglycerides 132 mg/dL
[2022-07-16 12:28] LABS: Estimated Average Glucose 151 mg/dL; Hemoglobin A1c % 6.9 %
[2022-07-16 12:30] LABS: TSH reflex Free T4 2.56 uIU/mL (0.32-4.0)
== END 2022-07-16 08:34 | disposition home or self-care (01) ==
LOC: HO.HMGCX 08:33
PROVIDERS: Absent Provider Internal Medicine; PCP Internal Medicine; Visit Provider Internal Medicine
DX: S46.911A Strain of unspecified muscle, fascia and tendon at shoulder and upper arm level, right arm, initial encounter (principal); E66.09 Other obesity due to excess calories; I10 Essential (primary) hypertension; I48.0 Paroxysmal atrial fibrillation; K21.9 Gastro-esophageal reflux disease without esophagitis; E13.9 Other specified diabetes mellitus without complications
CPT/HCPCS: 36415; 73030; 80053; 80061; 83036; 84443; 85025

== ENCOUNTER → 2022-07-25 09:56 | Outpatient (REF) | payer OTHER, SELFPAY | LOC: HO.SL 09:56 | PROVIDERS: PCP Internal Medicine; Visit Provider Nurse Practitioner Family | DX: Z13.89 Encounter for screening for other disorder (principal) ==

== ENCOUNTER → 2022-07-26 09:37 | Outpatient (BNVA) | payer OTHER, SELFPAY | PROVIDERS: PCP Internal Medicine; Visit Provider Orthopaedic Surgery | DX: M19.011 Primary osteoarthritis, right shoulder (principal); M75.31 Calcific tendinitis of right shoulder; E13.9 Other specified diabetes mellitus without complications | CPT/HCPCS: 20610; 99202; J1100 ==

== ENCOUNTER → 2022-07-31 08:53 | Outpatient (REF) | payer OTHER, SELFPAY | LOC: HO.SL 08:53 | PROVIDERS: PCP Internal Medicine; Visit Provider Nurse Practitioner Family | DX: G47.33 Obstructive sleep apnea (adult) (pediatric) (principal); E66.09 Other obesity due to excess calories; I48.91 Unspecified atrial fibrillation | CPT/HCPCS: 95806 ==

== ENCOUNTER → 2022-08-28 19:30 | Outpatient (REF) | payer OTHER, SELFPAY | LOC: HO.SL 19:30 | PROVIDERS: PCP Internal Medicine; Visit Provider Nurse Practitioner Family | DX: G47.33 Obstructive sleep apnea (adult) (pediatric) (principal) | CPT/HCPCS: 95811 ==

== ENCOUNTER 2022-09-06 08:53 | Day surgery (SDC) | payer OTHER, SELFPAY ==
[2022-08-09 08:56] VITALS: BMI 34.1
--- NOTE | 2022-08-13 09:13 | HO.ANESPROP2 ---
Documented by User: Betazida Jo NP 09/05/22 10:45 HPI - Anesthesia Eval Consult details Narrative: 61yo M for Cardioversion 09/06/22 Eliquis for afib s/p colo 06/2022 with TIVA PMFSH Active Problems Active Problems: All Active Problems (Updated 08/09/22 @ 08:55 by Gloria Sharma RN) Encounter for general adult medical examination with abnormal findings (Acute) Obesity due to excess calories (Acute) Possible alcohol use disorder on screening for alcoholism (Acute) Colon cancer screening (Acute) PAF (paroxysmal atrial fibrillation) (Acute) New onset atrial fibrillation (Acute) Hospital discharge follow-up (Acute) Right shoulder strain (Acute) Osteoarthritis of right shoulder (Acute) Calcific tendinitis of right shoulder (Acute) CLAUDETTE (obstructive sleep apnea) (Acute) Obesity (Acute) Sleep apnea (Acute) Diabetes 1.5, managed as type 2 (Acute) Chronic GERD (Acute) Hypertension, essential (Acute) Past Medical History Medical History (Updated 09/03/22 @ 12:42 by Cristine Babcock RN) Atrial fibrillation Chronic GERD Diabetes 1.5, managed as type 2 ED (erectile dysfunction) Hypertension, essential Obesity Osteoarthritis Sleep apnea Tremor of both hands Family History Family History Father No problems noted. Mother No problems noted. Brother No problems noted. Brother No problems noted. Brother No problems noted. Son No problems noted. Daughter No problems noted. Family history of problems with anesthesia: No Surgical History Surgical History (Updated 08/09/22 @ 08:30 by Gloria Sharma RN) History of colonoscopy Umbilical hernia History of Problems with Anesthesia: No Social History Social History Housing: House Are you a primary home care and home health aides teacher to a significant other at home: No Do you presently have visiting nurse or other home services: No Alcohol intake: current Alcohol intake frequency: former alcohol drinker Alcohol type: beer Patient Tobacco Use Status: Former Tobacco user Quit Date: 1989 Tobacco use type: Cigarette Years Smoked: 20+/- e-Cigarette/Vaping Use: Never Used Second Hand Smoke Exposure: No service: Yes Current occupational status: retired Cognitive needs: No Hearing needs: No Vision needs: Yes Meds Allergies Allergy/AdvReac Type Severity Reaction Status Date / Time No Known Allergies Allergy Verified 09/03/22 12:41 Exam Exam Date and Time: August 13, 202213 Height,Weight and Vital Signs: Height 5 ft 11 in Weight 111 kg Pertinent Lab Results Pertinent Lab Results: Laboratory Tests 03/02/22 03/02/22 07/16/22 08:48 08:48 08:50 WBC 7.1 12.6 H Hgb 15.7 17.9 Hct 43.2 51.6 Plt Count 180 265 D Sodium 135 Potassium 3.7 Chloride 100 Carbon Dioxide 23 BUN 10 Creatinine 0.76 07/16/22 08:50 WBC Hgb Hct Plt Count Sodium 138 Potassium 4.2 Chloride 98 Carbon Dioxide 30 H BUN 12 Creatinine 1.16 Narrative Narrative: EKG 06/2022 69 beats per minute, left axis deviation, poor R-wave progression cannot rule out anteroseptal infarct, cannot rule out inferior infarct, QTC 443 milliseconds. ECHO 2021 Conclusions: - 1. Normal LV systolic function with LVEF of 60 65% ? 2. Mildly dilated left atrium? 3. Normal cardiac valvular Doppler ? 4. No gross pericardial effusion? Assessment and Plan Assessment Anesthesia Assessment: Chart Reviewed Final Anesthetic Review Family History of Problems with Anesthesia: No History of Problems with Anesthesia: No Documented by User: France Guerrero MD 09/06/22 08:06 [facility] Past Medical History Medical History (Updated 09/03/22 @ 12:42 by Cristine Babcock RN) Atrial fibrillation Chronic GERD Diabetes 1.5, managed as type 2 ED (erectile dysfunction) Hypertension, essential Obesity Osteoarthritis Sleep apnea Tremor of both hands Family History Family History Father No problems noted. Mother No problems noted. Brother No problems noted. Brother No problems noted. Brother No problems noted. Son No problems noted. Daughter No problems noted. Surgical History Surgical History (Updated 08/09/22 @ 08:30 by Gloria Sharma RN) History of colonoscopy Umbilical hernia Social History Social History Housing: House Are you a primary home care and home health aides teacher to a significant other at home: No Do you presently have visiting nurse or other home services: No Alcohol intake: current Alcohol intake frequency: former alcohol drinker Alcohol type: beer Patient Tobacco Use Status: Former Tobacco user Quit Date: 1989 Tobacco use type: Cigarette Years Smoked: 20+/- e-Cigarette/Vaping Use: Never Used Second Hand Smoke Exposure: No service: Yes Current occupational status: retired Cognitive needs: No Hearing needs: No Vision needs: Yes Meds Allergies Allergy/AdvReac Type Severity Reaction Status Date / Time No Known Allergies Allergy Verified 09/03/22 12:41 Exam Airway Mallampati Class: III TM Dist: >3cm Neck ROM: Full Assessment and Plan Assessment Anesthesia Assessment: Anesthesia Plan Discussed Final Anesthetic Review NPO: Yes ASA Class: III Final Preanesthetic Review: No Changes in Pt Med Stat, Meds/Allgs Chart Reviewed, Consent Obtained/Reviewed and Anes Risks/Benef Reviewed Patient Risk: Low Procedure Risk: Low Anesthetic Plan Anesthetic Plan: GA Disposition: Standard PACU
--- NOTE | 2022-09-06 | ECG_ITS ---
Test Reason : Post Cardioversion Blood Pressure : / mmHG Vent. Rate : 070 BPM Atrial Rate : 070 BPM P-R Int : 206 ms QRS Dur : 078 ms QT Int : 378 ms P-R-T Axes : -05 -81 000 degrees QTc Int : 408 ms Normal sinus rhythm Left axis deviation Inferior infarct (cited on or before 02-MAR-2022) Anterior infarct (cited on or before 02-MAR-2022) Abnormal ECG When compared with ECG of 02-MAR-2022 10:10, Sinus rhythm has replaced Atrial fibrillation Nonspecific T wave abnormality no longer evident in Anterolateral leads Referred By: Guillermo Alcantar Electronically Signed By:Guillermo Alcantar
[2022-09-06 09:33] VITALS: BP 125/84; PULSE 69; RESP 17; TEMP 35.7; O2SAT 98
[2022-09-06] MEDS: Lactated Ringers 1,000 ML 100 ML IVCONT (09:35)
[2022-09-06 09:38] LABS: Glucose, Whole Blood 174 mg/dL (60-115)
[2022-09-06] MEDS: Apixaban 5 MG TABLET PO (11:09)
--- NOTE | 2022-09-06 11:50 | HO.ANESPROP2 ---
[facility] Active Problems Active Problems: All Active Problems (Updated 09/03/22 @ 12:42 by Cristine Babcock RN) Encounter for general adult medical examination with abnormal findings (Acute) Obesity due to excess calories (Acute) Possible alcohol use disorder on screening for alcoholism (Acute) Colon cancer screening (Acute) PAF (paroxysmal atrial fibrillation) (Acute) New onset atrial fibrillation (Acute) Hospital discharge follow-up (Acute) Right shoulder strain (Acute) Osteoarthritis of right shoulder (Acute) Calcific tendinitis of right shoulder (Acute) CLAUDETTE (obstructive sleep apnea) (Acute) Obesity (Acute) Sleep apnea (Acute) Diabetes 1.5, managed as type 2 (Acute) Chronic GERD (Acute) Hypertension, essential (Acute) Past Medical History Medical History Atrial fibrillation Chronic GERD Diabetes 1.5, managed as type 2 ED (erectile dysfunction) Hypertension, essential Obesity Osteoarthritis Sleep apnea Tremor of both hands Functional capacity: independent ambulation Family History Family History Father No problems noted. Mother No problems noted. Brother No problems noted. Brother No problems noted. Brother No problems noted. Son No problems noted. Daughter No problems noted. Family history of problems with anesthesia: No Surgical History Surgical History History of colonoscopy Umbilical hernia History of Problems with Anesthesia: No Social History Social History Housing: House Are you a primary post acute care registered nurse to a significant other at home: No Do you presently have visiting nurse or other home services: No Alcohol intake: current Alcohol intake frequency: former alcohol drinker Alcohol type: beer Patient Tobacco Use Status: Former Tobacco user Quit Date: 1989 Tobacco use type: Cigarette Years Smoked: 20+/- e-Cigarette/Vaping Use: Never Used Second Hand Smoke Exposure: No Use of substances other than those prescribed or required for medical reasons: No Have you been hit, kicked, punched, or otherwise hurt by someone within the past year? If so, by whom?: No Are you DNR?: No Advance Directives Information Provided: Yes (brochure mailed) Advance Directives on File: No Recently lost weight without trying: No Eating poorly because of decreased appetite: No Nutrition Risks: No Nutritional Risk Poor oral hygiene: No service: Yes Current occupational status: retired Cognitive needs: No Hearing needs: No Vision needs: Yes Meds Allergies Allergy/AdvReac Type Severity Reaction Status Date / Time No Known Allergies Allergy Verified 09/03/22 12:41 Active Medications: Current Medications Lactated Ringer's (Lr) 1,000 mls @ 100 mls/hr IVCONT .Q10H AYLIN Last Admin: 09/06/22 09:35 Dose: 100 mls/hr Exam Exam Date and Time: September 06, 2022 1150 Height,Weight and Vital Signs: Height 5 ft 11 in Weight 111 kg Last Vital Signs Temp 96.3 F L 09/06/22 09:33 Pulse 69 09/06/22 09:33 Resp 17 09/06/22 09:33 BP 125/84 09/06/22 09:33 Pulse Ox 98 09/06/22 09:33 O2 Del Method 09/06/22 09:33 Pertinent Lab Results Pertinent Lab Results: Laboratory Tests 09/06/22 09:23 POC Glucose 174 H Airway Mallampati Class: III TM Dist: >3cm Neck ROM: Full Heart: RRR Lungs: CTA Assessment and Plan Final Anesthetic Review Family History of Problems with Anesthesia: No History of Problems with Anesthesia: No ASA Class: III and Emergency Final Preanesthetic Review: Meds/Allgs Chart Reviewed, Consent Obtained/Reviewed and Anes Risks/Benef Reviewed Patient Risk: Intermediate Procedure Risk: Low Anesthetic Plan Anesthetic Plan: GA Disposition: Standard PACU
--- NOTE | 2022-09-06 12:09 | MHC.SHP ---
Pre-Procedural Eval Section A Date of Service: 09/06/22 The patient is an INPATIENT: No The History & Physical has been completed within 30 days and I have reviewed it.: Yes Section B Chief Complaint: Paroxysmal atrial fibrillation Details of Present Illness: For cardioversion Allergies: Allergies Allergy/AdvReac Type Severity Reaction Status Date / Time No Known Allergies Allergy Verified 09/03/22 12:41 Plan Diagnosis/Plan: Unchanged I have reviewed the history and physical and performed a pertinent physical examination on my patient. No changes have occurred unless specified. Time Spent With Patient Time: Total time managing care of this patient today ____ minutes.
--- NOTE | 2022-09-06 12:10 | HO.CARDIVERS ---
Cardioversion Procedure Note Cardioversion Date of Procedure: 09/06/22 Ordering Provider: Guillermo Alcantar Performing Provider: Guillermo Alcantar Indication for Procedure: Afib Performed with Transesophageal Echo: No Consent: Verbal and Written consent was obtained from the patient before starting. The patient was made aware of the risk of stroke, failure and aspiration. Procedure: After consent obtained, defib pads were attached and the patient was sedated by the anesthesia team. Once adequate sedation achieved, single synchronized shock of 200 J was given which converted the rhythm to sinus. Recommendations: continue Eliquis uninterrupted. Same medications. We will arrange Holter monitor as outpatient.
[2022-09-06 12:11] VITALS: BP 125/82; PULSE 72; RESP 16; TEMP 36.6; O2SAT 96
--- NOTE | 2022-09-06 12:20 | HO.POSTANES ---
Post Anesthesia Evaluation Post Anesthesia Evaluation Vital Signs: Vital Signs Temp Pulse Resp BP Pulse Ox O2 Del Method 09/06/22 09:33 96.3 F L 69 17 125/84 98 Room Air Anesthesia: General Mental Status: Awake Pain Control: Satisfactory Nausea/Vomiting: None Hydration: Adequate Anesthesia-Related Issues: No Anes. Related Issues
[2022-09-06 12:26] VITALS: BP 112/76; PULSE 75; RESP 16; TEMP 37; O2SAT 96
== END 2022-09-06 13:08 | disposition home or self-care (01) ==
PROVIDERS: PCP Internal Medicine; Visit Provider Internal Medicine Cardiovascular Disease
PROC: 5A2204Z Restoration of Cardiac Rhythm, Single (ICD-10-PCS; principal; 2022-09-06 11:40)
DX: I48.0 Paroxysmal atrial fibrillation (principal); Z79.01 Long term (current) use of anticoagulants; I10 Essential (primary) hypertension; E13.9 Other specified diabetes mellitus without complications; Z79.84 Long term (current) use of oral hypoglycemic drugs; Z79.899 Other long term (current) drug therapy; G47.33 Obstructive sleep apnea (adult) (pediatric); Z87.891 Personal history of nicotine dependence
CPT/HCPCS: 82947; 92960; 93005

== ENCOUNTER → 2022-09-10 12:22 | Outpatient (BNVA) | payer OTHER, SELFPAY | PROVIDERS: PCP Internal Medicine; Visit Provider Orthopaedic Surgery | DX: E13.9 Other specified diabetes mellitus without complications (principal) ==

== ENCOUNTER 2022-09-20 07:00 | Outpatient (RCR) | payer OTHER, SELFPAY ==
--- NOTE | 2022-08-11 15:11 | MHC.PT.EP ---
[facility] [place] Office [place] Office [place] Office [address] [phone] F: [phone] F: [phone] F: [phone] F: [phone] Physical Therapy Plan of Care Date of Evaluation: Date of Surgery: NA Diagnosis: RIGHT SHOULDER OA Assessment: Nolan is a pleasant 61 yo retired gentleman who presents with right shoulder pain of insidious onset. Reports several weeks ago pain was so bad he was unable to move arm and was using LUE to assist. Pain now improving but localized to posterior shoulder and prevents him from using arm for reaching and lifting activities. He reports decreased ROM and strength and states he has difficulty sleeping due to the pain. Injection from ortho improved symptoms. Upon exam impairments include decreased ROM, decreased strength, altered posture, increased pain. Functional limitations include decreased ability to perform homemaking and self care tasks, decreased ability to lift, reach, push or pull. He reports decreased participation in recreational activities and disrupted sleep. Frequency and Duration: The patient will be seen 2 x week for 4 weeks Short Term Goals: Initiate HEP and promote self management of symptoms Farmworkers Goals: FULL, PAIN FREE ROM FULL UE STRENGTH, PAIN FREE TO REPORT SLEEPING WITHOUT PAIN TO PLACE OBJECT AT MINIMUM OF 5# INTO CABINET AT SHOULDER HEIGHT Treatment Plan: Modalities to reduce pain, spasms and effusion. Manual therapy to restore motion and function. Therapeutic exercise to improve strength and flexibility. Neuromuscular re-education for posture and balance. Therapeutic activities to return to functional activities of daily living. Electronically signed by: Shannon White PT, DPT Please sign and return to therapist. Thank you for your referral.
== END 2022-10-23 08:32 | disposition home or self-care (01) ==
LOC: HO.PT 07:00
PROVIDERS: PCP Internal Medicine; Visit Provider Orthopaedic Surgery
DX: M19.011 Primary osteoarthritis, right shoulder (principal); M75.31 Calcific tendinitis of right shoulder
CPT/HCPCS: 97110; 97112; 97140; 97161

== ENCOUNTER 2022-09-24 07:22 | Outpatient (REF) | payer OTHER, SELFPAY ==
--- NOTE | ~2022-09-24 | MR_ITS ---
EXAMINATION: MR SHOULDER WITHOUT CONTRAST, RIGHT CLINICAL INFORMATION: Right shoulder pain, osteoarthritis. COMPARISON: Radiographs 07/16/2022 TECHNIQUE: MRI of the shoulder without contrast was performed on a high-field scanner. FINDINGS: ROTATOR CUFF: Supraspinatus and infraspinatus tendinosis. Mild supraspinatus insertional calcific tendinitis anteriorly. Minimal undersurface fraying of the distal supraspinatus tendon anteriorly at the junction with the rotator cuff interval. Subscapularis insertional tendinopathy. Longitudinal partial fatty replacement of the infraspinatus muscle superiorly and posteriorly. BICEPS: Normal. CORACOACROMIAL ARCH: The undersurface of the acromion is laterally downsloping with no subacromial spur. Mild acromioclavicular osteoarthritis. LABRUM/CAPSULE: Irregular undersurface tearing throughout the posterior and inferior labrum. GLENOHUMERAL JOINT/MARROW: Full-thickness cartilage loss and mild surface flattening of the posterior glenoid with posterior osteophyte formation and small paralabral cysts. There is cartilage thinning of the superomedial humeral head. Prominent degenerative cysts of the humeral head posterolaterally. Small joint effusion with synovitis/debris. MR/MR shoulder RT wo con IMPRESSION: Rotator cuff tendinopathy with minimal undersurface fraying of the supraspinatus tendon anteriorly and mild supraspinatus calcific tendinitis. Severe glenohumeral osteoarthritis as described. Laterally downsloping acromion and mild acromioclavicular osteoarthritis.
== END 2022-09-24 07:23 | disposition home or self-care (01) ==
LOC: HO.MRI 07:22
PROVIDERS: PCP Internal Medicine; Visit Provider Orthopaedic Surgery
DX: M19.011 Primary osteoarthritis, right shoulder (principal); M75.31 Calcific tendinitis of right shoulder
CPT/HCPCS: 73221

== ENCOUNTER → 2022-10-05 10:21 | Outpatient (BNVA) | payer OTHER, SELFPAY | PROVIDERS: PCP Internal Medicine; Visit Provider Orthopaedic Surgery | DX: Z13.89 Encounter for screening for other disorder (principal) ==

== ENCOUNTER 2022-10-12 08:28 | Outpatient (REF) | payer OTHER, SELFPAY ==
[2022-10-12 12:36] LABS: Creatinine Urine 124.31 mg/dL; Microalbum/Creatinine Ratio Ur 8.8 ug/mg cr
[2022-10-12 12:39] LABS: Alanine Aminotransferase 21 U/L (0-40); Alkaline Phosphatase 46 U/L (39-117); Anion Gap 14 (12-20); Aspartate Amino Transferase 17 U/L (5-37); Bilirubin Total 2.1 mg/dL (0.0-1.0); Blood Urea Nitrogen 8 mg/dL (9-16); Calcium 9.5 mg/dL (8.4-10.2); Carbon Dioxide 29 mmol/L (22-29); Chloride 101 mmol/L (96-108); Cholesterol 195 mg/dL; Estimated Glomerular Filt Rate > 60; Glucose Fasting 231 mg/dL (60-99); HDL Cholesterol 53 mg/dL; LDL Cholesterol Calculated 111 mg/dl; Potassium 3.7 mmol/L (3.3-5.1); Sodium 140 mmol/L (135-145); Total Protein 6.2 g/dL (6.5-8.0); Triglycerides 156 mg/dL
== END 2022-10-12 08:29 | disposition home or self-care (01) ==
LOC: HO.HMGCLDS 08:28
PROVIDERS: PCP Internal Medicine; Visit Provider Internal Medicine
DX: E13.9 Other specified diabetes mellitus without complications (principal); E66.09 Other obesity due to excess calories; I10 Essential (primary) hypertension; I48.0 Paroxysmal atrial fibrillation; K21.9 Gastro-esophageal reflux disease without esophagitis; G47.33 Obstructive sleep apnea (adult) (pediatric)
CPT/HCPCS: 36415; 80053; 80061; 82043

== ENCOUNTER → 2022-10-22 09:12 | Outpatient (BNVA) | payer OTHER, SELFPAY | PROVIDERS: PCP Internal Medicine; Visit Provider Internal Medicine | DX: Z01.810 Encounter for preprocedural cardiovascular examination (principal); I48.19 Other persistent atrial fibrillation | CPT/HCPCS: 93005 ==

== ENCOUNTER 2022-10-24 07:27 | Day surgery (SDC) | payer OTHER, SELFPAY ==
[2022-10-19 11:34] VITALS: BMI 34.7
--- NOTE | 2022-10-23 10:50 | P.CONAN_ITS ---
Documented by User: Betzaida Jo NP 10/23/22 10:57 HPI - Anesthesia Eval Consult details Narrative: 61yo M for Right Shoulder Arthroscopy,poss rotator cuff repair Cardiac cleared 10/22/22 Eliquis for afib s/p cardioversion 08/2022 [facility] Active Problems Active Problems: All Active Problems (Updated 10/22/22 @ 09:33 by Magen Gallardo MD) Persistent atrial fibrillation (Acute) Preoperative cardiovascular examination (Acute) Encounter for general adult medical examination with abnormal findings (Acute) Obesity due to excess calories (Acute) Possible alcohol use disorder on screening for alcoholism (Acute) Colon cancer screening (Acute) PAF (paroxysmal atrial fibrillation) (Acute) New onset atrial fibrillation (Acute) Hospital discharge follow-up (Acute) Right shoulder strain (Acute) Osteoarthritis of right shoulder (Acute) Calcific tendinitis of right shoulder (Acute) CLAUDETTE (obstructive sleep apnea) (Acute) Obesity (Acute) Sleep apnea (Acute) Diabetes 1.5, managed as type 2 (Acute) Chronic GERD (Acute) Hypertension, essential (Acute) Past Medical History Medical History (Updated 10/22/22 @ 09:33 by Magen Gallardo MD) Atrial fibrillation Atrial fibrillation status post cardioversion Chronic GERD Diabetes 1.5, managed as type 2 ED (erectile dysfunction) History of cardioversion Hypertension, essential Obesity Osteoarthritis Sleep apnea Tremor of both hands Family History Family History Father No problems noted. Mother No problems noted. Brother No problems noted. Brother No problems noted. Brother No problems noted. Son No problems noted. Daughter No problems noted. Family history of problems with anesthesia: No Surgical History Surgical History History of colonoscopy Umbilical hernia History of Problems with Anesthesia: No Social History Social History (Updated 10/22/22 @ 09:20 by Tess Clay) Housing: House Are you a primary critical care paramedic to a significant other at home: No Do you presently have visiting nurse or other home services: No Alcohol intake: current Alcohol intake frequency: holidays/special occasions only Alcohol type: beer Patient Tobacco Use Status: Former Tobacco user Quit Date: 1989 Tobacco use type: Cigarette Years Smoked: 12 e-Cigarette/Vaping Use: Never Used Second Hand Smoke Exposure: No Use of substances other than those prescribed or required for medical reasons: No Have you been hit, kicked, punched, or otherwise hurt by someone within the past year? If so, by whom?: No Are you DNR?: No Advance Directives: No Advance Directives Information Provided: Yes Advance Directives on File: No Recently lost weight without trying: No Nutrition Risks: No Nutritional Risk Poor oral hygiene: No service: Yes Current occupational status: retired Cognitive needs: No Hearing needs: No Vision needs: Yes Meds Allergies Allergy/AdvReac Type Severity Reaction Status Date / Time No Known Allergies Allergy Verified 10/22/22 09:16 Home Medications Medication Instructions Recorded Confirmed Last Taken Type CPAP 10/12/22 10/22/22 Unknown History Exam Exam Date and Time: October 23, 2022 1050 Height,Weight and Vital Signs: Height 5 ft 11 in Weight 112.945 kg Pertinent Lab Results Pertinent Lab Results: Laboratory Tests 07/16/22 10/12/22 08:50 08:33 WBC 12.6 H Hgb 17.9 Hct 51.6 Plt Count 265 D Sodium 140 Potassium 3.7 Chloride 101 Carbon Dioxide 29 BUN 8 L Creatinine 0.89 Laboratory Tests 10/12/22 08:11 Hgb A1c (Clinic) 8.2 H Narrative Narrative: EKG 09/2022 atrial fibrillation at 62/Min; cannot exclude old anterior infarct but could be from body habitus. ECHO 02/2022 Conclusions: - 1. Normal LV systolic function with LVEF of 60 65% ? 2. Mildly dilated left atrium? 3. Normal cardiac valvular Doppler ? 4. No gross pericardial effusion ? ? ? Assessment and Plan Assessment Anesthesia Assessment: Chart Reviewed Final Anesthetic Review Family History of Problems with Anesthesia: No History of Problems with Anesthesia: No Documented by User: Devan Pop MD 10/24/22 07:37 [facility] Past Medical History Medical History (Updated 10/22/22 @ 09:33 by Magen Gallardo MD) Atrial fibrillation Atrial fibrillation status post cardioversion Chronic GERD Diabetes 1.5, managed as type 2 ED (erectile dysfunction) History of cardioversion Hypertension, essential Obesity Osteoarthritis Sleep apnea Tremor of both hands Family History Family History Father No problems noted. Mother No problems noted. Brother No problems noted. Brother No problems noted. Brother No problems noted. Son No problems noted. Daughter No problems noted. Surgical History Surgical History History of colonoscopy Umbilical hernia Social History Social History (Updated 10/22/22 @ 09:20 by Tess Clay) Housing: House Are you a primary critical care paramedic to a significant other at home: No Do you presently have visiting nurse or other home services: No Alcohol intake: current Alcohol intake frequency: holidays/special occasions only Alcohol type: beer Patient Tobacco Use Status: Former Tobacco user Quit Date: 1989 Tobacco use type: Cigarette Years Smoked: 12 e-Cigarette/Vaping Use: Never Used Second Hand Smoke Exposure: No Use of substances other than those prescribed or required for medical reasons: No Have you been hit, kicked, punched, or otherwise hurt by someone within the past year? If so, by whom?: No Are you DNR?: No Advance Directives: No Advance Directives Information Provided: Yes Advance Directives on File: No Recently lost weight without trying: No Nutrition Risks: No Nutritional Risk Poor oral hygiene: No service: Yes Current occupational status: retired Cognitive needs: No Hearing needs: No Vision needs: Yes Meds Allergies Allergy/AdvReac Type Severity Reaction Status Date / Time No Known Allergies Allergy Verified 10/22/22 09:16 Home Medications Medication Instructions Recorded Confirmed Last Taken Type CPAP 10/12/22 10/22/22 Unknown History Exam Airway Mallampati Class: III TM Dist: >3cm Neck ROM: Limited Heart: rrr Lungs: cta Assessment and Plan Final Anesthetic Review NPO: Yes ASA Class: III Final Preanesthetic Review: No Changes in Pt Med Stat, Meds/Allgs Chart Reviewed, Consent Obtained/Reviewed and Anes Risks/Benef Reviewed Patient Risk: Intermediate Procedure Risk: Intermediate Anesthetic Plan Anesthetic Plan: GA, Regional Block and Agree w/ Assess. and Plan Disposition: Standard PACU
[2022-10-24 07:48] VITALS: BP 138/79; PULSE 66; RESP 16; TEMP 36.2; O2SAT 98
[2022-10-24 07:50] LABS: Glucose, Whole Blood 225 mg/dL (60-115)
[2022-10-24] MEDS: Lactated Ringers 1,000 ML 100 ML IVCONT (08:04)
--- NOTE | 2022-10-24 08:05 | PC.NURSE ---
Dr. Tompkins and Dr. Pop at bedside. Patient currently in Afib, HR 70's. Cardiac clearance obtained from Dr. Alcantar mentions that patient is in rate controlled afib and therefore, may proceed with procedure. Turner James and Dr. Pop aware, may proceed with surgery.
--- NOTE | 2022-10-24 09:19 | MHC.SHP ---
Pre-Procedural Eval Section A Date of Service: 10/24/22 The patient is an INPATIENT: No Changes since office visit: No Cold of Flu in the past 2 weeks, No New Medical Problems, No Changes in Medication and No Patient answered all questions The History & Physical has been completed within 30 days and I have reviewed it.: Yes Section B Chief Complaint: Primary osteoarthritis, right shoulder Allergies: Allergies Allergy/AdvReac Type Severity Reaction Status Date / Time No Known Allergies Allergy Verified 10/24/22 07:40 Plan I have reviewed the history and physical and performed a pertinent physical examination on my patient. No changes have occurred unless specified. Time Spent With Patient Time: Total time managing care of this patient today ____ minutes.
--- NOTE | 2022-10-24 10:22 | PM.OP ---
Brief Operative Note Date of Service: 10/24/22 Pre-op diagnosis: Right shoulder OA Post-op diagnosis: same Procedure: RIght shoulder with biceps tenotomy, labral debridement, chondroplasty and subacromial decompression Implants: nonr Surgeon: Jimmy Tompkins MD Anesthesia: GETA and regional Was an Component Design Engineer used for this Procedure?: Yes Component Design Engineer: Alma De La Cruz Estimated blood loss (mL): 25 IV fluids (mL): 800 Pathology: none sent Condition: stable Disposition: PACU
--- NOTE | 2022-10-24 10:29 | P.OP_ITS ---
Operative Note Operative Note Date of Service: 10/24/22 Narrative: Pre-op diagnosis: Right shoulder OA Post-op diagnosis: same Procedure: RIght shoulder with biceps tenotomy, labral debridement, chondroplasty and subacromial decompression Implants: none Surgeon: Jimmy Tompkins MD Anesthesia: GETA and regional Was an Electrical Engineering Professor used for this Procedure?: Yes Electrical Engineering Professor: Alma De La Cruz Estimated blood loss (mL): 25 IV fluids (mL): 800 Pathology: none sent Condition: stable Disposition: PACU Procedure in detail: Patient was brought to the operating room and placed the the beach chair position. All bony prominences were well padded and the limb was prepped and draped in standard sterile fashion. A time out was called to identify proper site, proper procedure and proper surgeon. IV antibiotics per weight were administered. I began by making a posterolateral stab incision with a 15 blade. A blunt trochar was placed into the glenohumeral joint and I insufflated the joint with saline and a 30 degree arthroscope was placed. I established an outside- in anterior portal just distal to the biceps tendon. I then began my inspection of the glenohumeral joint. There was G4 changes of the posterior 50% of the glenoid and HH. There was a large circumferential labral tear, in intact biceps and a scarred and friable anterior interval. The subscapularis was intact and there was no under-surface RTC tearing. I debrided the labrum andtenotomized the biceps. I debrided and ablated the anterior interval. I performed a glenoid chondroplasty. I then intered the subacromial space and established a direct lateral portal. A bursectomy was perfromed and the cuff examined. The cuff was intact and I would find no calcium to remove/debride. I performed a 5mm subacromial decompresion. All instrumentation was removed and the portals were closed with nylon. Patient was placed in an abduction sling, extubated and brought to the recovery room in stable condition. There were no known complications.
[2022-10-24 10:38] VITALS: BP 117/74; PULSE 65; RESP 16; TEMP 36.1; O2SAT 96
[2022-10-24 10:43] VITALS: BP 112/66; PULSE 58; RESP 16; O2SAT 99
[2022-10-24 10:48] VITALS: BP 114/75; PULSE 62; RESP 16; O2SAT 97
[2022-10-24 10:53] VITALS: BP 109/79; PULSE 66; RESP 16; TEMP 36.1; O2SAT 95
[2022-10-24] MEDS: oxyCODONE HCl Immed Release 5 MG TABLET PO (10:59)
[2022-10-24 11:08] VITALS: BP 111/72; PULSE 57; RESP 16; TEMP 36.3; O2SAT 95
== END 2022-10-24 11:48 | disposition home or self-care (01) ==
LOC: HO.SSS 07:27
PROVIDERS: PCP Internal Medicine; Visit Provider Orthopaedic Surgery
PROC: (CPT 29805; principal; 2022-10-24 09:40)
DX: M19.011 Primary osteoarthritis, right shoulder (principal); M75.31 Calcific tendinitis of right shoulder; G47.33 Obstructive sleep apnea (adult) (pediatric); I48.19 Other persistent atrial fibrillation; I10 Essential (primary) hypertension; R25.1 Tremor, unspecified; E66.9 Obesity, unspecified; Z68.35 Body mass index [BMI] 35.0-35.9, adult; E13.9 Other specified diabetes mellitus without complications; Z79.84 Long term (current) use of oral hypoglycemic drugs; Z79.899 Other long term (current) drug therapy; Z87.891 Personal history of nicotine dependence
CPT/HCPCS: 29823; 29826; 82947; J0171; J0690; J1885; J2405; J2795

== ENCOUNTER → 2022-10-31 08:51 | Outpatient (BNVA) | payer OTHER, SELFPAY | PROVIDERS: PCP Internal Medicine; Visit Provider Physician Assistant | DX: Z13.89 Encounter for screening for other disorder (principal) ==

== ENCOUNTER → 2022-11-19 10:33 | Outpatient (BNVA) | payer OTHER, SELFPAY | PROVIDERS: PCP Internal Medicine; Referring Provider Internal Medicine; Visit Provider Internal Medicine Cardiovascular Disease | DX: I48.19 Other persistent atrial fibrillation (principal) | CPT/HCPCS: 93005 ==

== ENCOUNTER → 2022-11-26 08:35 | Outpatient (BNVA) | payer OTHER, SELFPAY | PROVIDERS: PCP Internal Medicine; Visit Provider Physician Assistant | DX: Z13.89 Encounter for screening for other disorder (principal) ==

== ENCOUNTER 2022-11-29 11:27 | Day surgery (SDC) | payer OTHER, SELFPAY ==
[2022-11-23 15:07] VITALS: BMI 35.4
--- NOTE | 2022-11-29 | ECG_ITS ---
Test Reason : POST CARDIOVERSION Blood Pressure : / mmHG Vent. Rate : 057 BPM Atrial Rate : 057 BPM P-R Int : 236 ms QRS Dur : 088 ms QT Int : 452 ms P-R-T Axes : -01 -68 -07 degrees QTc Int : 439 ms Sinus bradycardia with 1st degree A-V block Left axis deviation Inferior infarct (cited on or before 02-MAR-2022) Possible Anterior infarct (cited on or before 02-MAR-2022) Abnormal ECG When compared with ECG of 06-SEP-2022 12:25, VA interval has increased Referred By: Guillermo Alcantar Electronically Signed By:Guillermo Alcantar
[2022-11-29 11:59] VITALS: BP 135/76; PULSE 45; RESP 18; TEMP 36.3; O2SAT 98
[2022-11-29] MEDS: Lactated Ringers 1,000 ML 50 ML IVCONT (12:14)
[2022-11-29 12:15] LABS: Glucose, Whole Blood 207 mg/dL (60-115)
--- NOTE | 2022-11-29 12:58 | P.CONAN_ITS ---
HPI - Anesthesia Eval Consult details Narrative: 62 M for cardioversion AFib , CLAUDETTE no chest pain , no SOB PMFSH Active Problems Active Problems: All Active Problems (Updated 11/29/22 @ 11:42 by Maine Crockett RN) Encounter for general adult medical examination with abnormal findings (Acute) Obesity due to excess calories (Acute) Possible alcohol use disorder on screening for alcoholism (Acute) Colon cancer screening (Acute) PAF (paroxysmal atrial fibrillation) (Acute) New onset atrial fibrillation (Acute) Hospital discharge follow-up (Acute) Right shoulder strain (Acute) Osteoarthritis of right shoulder (Acute) Calcific tendinitis of right shoulder (Acute) CLAUDETTE (obstructive sleep apnea) (Acute) Preoperative cardiovascular examination (Acute) Persistent atrial fibrillation (Acute) Biceps tendonitis on right (Acute) Obesity (Acute) Sleep apnea (Acute) Diabetes 1.5, managed as type 2 (Acute) Chronic GERD (Acute) Hypertension, essential (Acute) Past Medical History Medical History (Updated 11/29/22 @ 11:42 by Maine Crockett RN) Atrial fibrillation Atrial fibrillation status post cardioversion Chronic GERD Diabetes 1.5, managed as type 2 ED (erectile dysfunction) History of cardioversion Hypertension, essential Obesity Osteoarthritis Sleep apnea Tremor of both hands Functional capacity: independent ambulation Family History Family History Father No problems noted. Mother No problems noted. Brother No problems noted. Brother No problems noted. Brother No problems noted. Son No problems noted. Daughter No problems noted. Family history of problems with anesthesia: No Surgical History Surgical History History of colonoscopy History of shoulder surgery Umbilical hernia History of Problems with Anesthesia: No Social History Social History Housing: House Are you a primary patient care assistant to a significant other at home: No Do you presently have visiting nurse or other home services: No Alcohol intake: current Alcohol intake frequency: former alcohol drinker Alcohol type: beer Patient Tobacco Use Status: Former Tobacco user Quit Date: 1989 Tobacco use type: Cigarette Years Smoked: 12 e-Cigarette/Vaping Use: Never Used Second Hand Smoke Exposure: No Use of substances other than those prescribed or required for medical reasons: No Have you been hit, kicked, punched, or otherwise hurt by someone within the past year? If so, by whom?: No Are you DNR?: No Advance Directives: No Advance Directives Information Provided: Yes (brochure mailed) Advance Directives on File: No Recently lost weight without trying: No Eating poorly because of decreased appetite: No Nutrition Risks: No Nutritional Risk Poor oral hygiene: No service: Yes Current occupational status: retired Cognitive needs: No Hearing needs: No Vision needs: Yes Meds Allergies Allergy/AdvReac Type Severity Reaction Status Date / Time No Known Allergies Allergy Verified 11/29/22 11:40 Active Medications: Current Medications Lactated Ringer's (Lr) 1,000 mls @ 50 mls/hr IVCONT .Q20H AYLIN Last Admin: 11/29/22 12:14 Dose: 50 mls/hr Home Medications Medication Instructions Recorded Confirmed Last Taken Type CPAP 10/12/22 11/29/22 Unknown History flecainide 50 mg tablet 50 mg PO Q12H 11/29/22 11/29/22 11/29/22 08:00 History metoprolol succinate 25 mg 25 mg PO BEDTIME 11/29/22 11/29/22 Unknown History tablet,extended release 24 hr (Toprol XL) Exam Exam Date and Time: November 29, 2022 1258 Height,Weight and Vital Signs: Height 5 ft 11 in Weight 115.4 kg Last Vital Signs Temp 97.4 F 11/29/22 11:59 Pulse 45 L 11/29/22 11:59 Resp 18 11/29/22 11:59 BP 135/76 11/29/22 11:59 Pulse Ox 98 11/29/22 11:59 O2 Del Method Room Air 11/29/22 11:59 Pertinent Lab Results Pertinent Lab Results: Laboratory Tests 11/29/22 12:05 POC Glucose 207 H Narrative Narrative: [address] [address] Cardiology Report Signed Patient: Nolan Nj MR#: [id number] : 1960 Acct:[id number] Age/Sex: 61 / M ADM Date: 03/08/22 EKG, 11/19/2022 Atrial fibrillation Right superior axis deviation RVH Possible anterior infarct , age undetermined Date of Service: 07/14/22 Transthoracic Echocardiogram ? Conclusions: - 1. Normal LV systolic function with LVEF of 60 65% ? 2. Mildly dilated left atrium? 3. Normal cardiac valvular Doppler ? 4. No gross pericardial effusion ? Airway Mallampati Class: III Neck ROM: Full Loose/Missing/Broken Teeth: Yes Assessment and Plan Assessment Anesthesia Assessment: Anesthesia Plan Discussed and Chart Reviewed Final Anesthetic Review Family History of Problems with Anesthesia: No History of Problems with Anesthesia: No NPO: Yes ASA Class: III Final Preanesthetic Review: Meds/Allgs Chart Reviewed, Consent Obtained/Reviewed and Anes Risks/Benef Reviewed Patient Risk: Intermediate Procedure Risk: Intermediate Anesthetic Plan Anesthetic Plan: MAC: Disposition: Standard PACU
--- NOTE | 2022-11-29 14:03 | MHC.SHP ---
Pre-Procedural Eval Section A Date of Service: 11/29/22 The patient is an INPATIENT: No Section B Chief Complaint: Other persistent atrial fibrillation Allergies: Allergies Allergy/AdvReac Type Severity Reaction Status Date / Time No Known Allergies Allergy Verified 11/29/22 11:40 Plan Diagnosis/Plan: Unchanged I have reviewed the history and physical and performed a pertinent physical examination on my patient. No changes have occurred unless specified. Time Spent With Patient Time: Total time managing care of this patient today ____ minutes.
[2022-11-29 14:11] VITALS: BP 133/76; PULSE 59; RESP 15; TEMP 37.2; O2SAT 97
[2022-11-29 14:16] VITALS: BP 115/71; PULSE 61; RESP 16; O2SAT 96
[2022-11-29 14:21] VITALS: BP 126/69; PULSE 57; RESP 19; O2SAT 97
[2022-11-29 14:26] VITALS: BP 131/80; PULSE 57; RESP 18; O2SAT 97
--- NOTE | 2023-02-22 10:26 | HO.CARDIVERS ---
Cardioversion Procedure Note Cardioversion Date of Procedure: 11/29/22 Ordering Provider: Guillermo Alcantar Performing Provider: Guillermo Alcantar Indication for Procedure: Persistent Afib Consent: Verbal and Written consent was obtained from the patient before starting. The patient was made aware of the risk of stroke, skin burn, arrhythmia and failure to achieve sinus rhythm. Procedure: After consent obtained, defib pads were attached and the patient was sedated by the anesthesia team. Once adequate sedation achieved, single synchronized shock of 200 J was given. The patient converted to sinus rhythm. Complications: None Recommendations: Continue Flecainide, Toprol XL and Apixaban.
== END 2022-11-29 14:55 | disposition home or self-care (01) ==
PROVIDERS: PCP Internal Medicine; Visit Provider Internal Medicine Cardiovascular Disease
PROC: 5A2204Z Restoration of Cardiac Rhythm, Single (ICD-10-PCS; principal; 2022-11-29 13:00)
DX: I48.19 Other persistent atrial fibrillation (principal); E13.9 Other specified diabetes mellitus without complications; I10 Essential (primary) hypertension; Z79.01 Long term (current) use of anticoagulants; Z79.84 Long term (current) use of oral hypoglycemic drugs; Z79.899 Other long term (current) drug therapy
CPT/HCPCS: 82947; 92960; 93005; J0461

== ENCOUNTER 2022-12-20 10:00 | Outpatient (RCR) | payer OTHER, SELFPAY ==
--- NOTE | 2022-12-25 13:20 | MHC.PT.DC ---
[facility] [place] Office [place] Office [place] Office [address] Suzy Lord [address] [phone] F: [phone] F: [phone] F: [phone] F: [phone] Physical Therapy Discharge Report Diagnosis: POST OP LABRAL DEBRIEMENT AND BICEPS TENOTOMY (KP) Date of Surgery: 10/24/22 Date of Evaluation: 10/31/22 Date of Discharge: 12/25/22 Treatments to Date: 16 Cancellations to Date: 0 No Shows to Date: 0 Discharge Status: Achieved Goals Improved Function Independent with HEP Insurance Declined Tx Discharge Summary: ER limited to aprox 65 degrees and flexion to 150. Abduction most limited at 110. He is independent with an extensive home program. His insurance benefit has been exhausted at this time. Electronically signed by: Shannon White PT, DPT Please sign and return to therapist. Thank you for your referral.
== END 2022-12-25 13:21 | disposition home or self-care (01) ==
LOC: HO.PT 10:00
PROVIDERS: PCP Internal Medicine; Visit Provider Orthopaedic Surgery
DX: M19.011 Primary osteoarthritis, right shoulder (principal); M75.21 Bicipital tendinitis, right shoulder
CPT/HCPCS: 97110; 97140; 97161; 97530; 97535

== ENCOUNTER → 2023-01-18 09:25 | Outpatient (BNVA) | payer OTHER, SELFPAY | PROVIDERS: PCP Internal Medicine; Visit Provider Orthopaedic Surgery ==

== ENCOUNTER → 2023-02-05 08:59 | Outpatient (BNVA) | payer OTHER, SELFPAY | PROVIDERS: PCP Internal Medicine; Visit Provider Nurse Practitioner Family ==

== ENCOUNTER 2023-02-13 10:11 | Outpatient (REF) | payer OTHER, SELFPAY ==
[2023-02-13 11:14] LABS: MANUAL DIFF FLAG NO
[2023-02-13 11:25] LABS: Basophils Percent Auto 0.4 % (0-2); Eosinophils Absolute Auto 0.1 X10*3/uL (0.0-0.4); Eosinophils Percent Auto 1.6 % (0-4); Hemoglobin 15.2 g/dl (14.0-18.0); Imm Gran Abs Auto 0.02 X10*3/uL (0.00-0.03); Imm Gran Pct Auto 0.3 % (0.0-0.4); Lymphocytes Absolute Auto 1.4 X10*3/uL (1.2-4.9); Lymphocytes Percent Auto 19.4 % (20-40); Mean Corpuscular HGB Conc 35.3 g/dl (31.0-36.0); Mean Corpuscular Hemoglobin 29.3 pg (27.0-33.0); Mean Corpuscular Volume 82.9 fL (80.0-98.0); Mean Platelet Volume 11.6 fL (9.4-12.4); Monocytes Absolute Auto 0.5 X10*3/uL (0.1-1.2); Monocytes Percent Auto 7.7 % (2-11); Neutrophils Percent Auto 70.6 % (45-73); Platelet Count 210 X10*3/uL (160-400); Red Blood Count 5.19 X10*6/uL (4.60-5.80); Red Cell Distribution Width 12.5 % (11.0-16.0); White Blood Count 7.1 X10*3/uL (4.8-10.8)
[2023-02-13 12:13] LABS: Estimated Average Glucose 192 mg/dL; Hemoglobin A1c % 8.3 %
[2023-02-13 12:15] LABS: Alanine Aminotransferase 16 U/L (0-40); Alkaline Phosphatase 44 U/L (39-117); Anion Gap 14 (12-20); Aspartate Amino Transferase 17 U/L (5-37); Bilirubin Total 1.9 mg/dL (0.0-1.0); Blood Urea Nitrogen 13 mg/dL (9-16); Calcium 9.9 mg/dL (8.4-10.2); Carbon Dioxide 25 mmol/L (22-29); Chloride 104 mmol/L (96-108); Cholesterol 179 mg/dL; Estimated Glomerular Filt Rate > 60; Glucose Fasting 182 mg/dL (60-99); HDL Cholesterol 41 mg/dL; LDL Cholesterol Calculated 115 mg/dl; Potassium 3.6 mmol/L (3.3-5.1); Sodium 139 mmol/L (135-145); Total Protein 6.8 g/dL (6.5-8.0); Triglycerides 118 mg/dL
== END 2023-02-13 10:12 | disposition home or self-care (01) ==
LOC: HO.HMGCLDS 10:11
PROVIDERS: PCP Internal Medicine; Visit Provider Internal Medicine
DX: E13.9 Other specified diabetes mellitus without complications (principal); E66.9 Obesity, unspecified; I48.0 Paroxysmal atrial fibrillation; K21.9 Gastro-esophageal reflux disease without esophagitis; I10 Essential (primary) hypertension
CPT/HCPCS: 36415; 80053; 80061; 83036; 85025

== ENCOUNTER 2023-03-04 09:32 | Outpatient (AMB) | payer OTHER, SELFPAY ==
[2023-03-04 10:08] VITALS: BP 120/80; PULSE 55; BMI 35.4
--- NOTE | 2023-03-04 10:08 | MHC.OFFVIS ---
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 He was seen in the hospital when he presented to short stay surgery for colonoscopy and was found to be in atrial fibrillation. He was completely asymptomatic. He has been on Eliquis without any bleeding. He underwent echocardiography which showed normal left ventricular function without any significant valvular pathology. 11/19/22: After discussion he underwent cardioversion. Post cardioversion he was seen in the office and unfortunately was back in atrial fibrillation. He is compliant with Eliquis. He underwent right shoulder surgery uneventfully and is recovering from that. We discussed about attempting cardioversion with antiarrhythmic therapy and he was started on Multaq 400 mg twice a day. This was too expensive for him so he did not start Multaq. We decided to start him on flecainide 50 mg twice a day. He underwent successful cardioversion on 11/29/2022. He has been on Toprol-XL, flecainide and apixaban. 03/04/23: He returns for follow-up. EKG in the office is showing atrial fibrillation. He is taking flecainide 50 mg twice a day. Has no palpitations or any other symptoms. Post cardioversion he did not feel any different and continue to get some fatigue and shortness of breath with activity. Does not have any significant dyspnea at this point. Overall has been clinically stable. Taking medications regularly. [facility] Medical History Atrial fibrillation Atrial fibrillation status post cardioversion Chronic GERD Diabetes 1.5, managed as type 2 ED (erectile dysfunction) History of cardioversion Hypertension, essential Obesity Osteoarthritis Sleep apnea Tremor of both hands Surgical History History of colonoscopy History of shoulder surgery Umbilical hernia Family History Father No problems noted. Mother No problems noted. Brother No problems noted. Brother No problems noted. Brother No problems noted. Son No problems noted. Daughter No problems noted. Social History Housing: House Are you a primary animal care attendant to a significant other at home: No Do you presently have visiting nurse or other home services: No Alcohol intake: current Alcohol intake frequency: former alcohol drinker Alcohol type: beer Patient Tobacco Use Status: Former Tobacco user Quit Date: 1989 Tobacco use type: Cigarette Years Smoked: 12 e-Cigarette/Vaping Use: Never Used Second Hand Smoke Exposure: No service: Yes Current occupational status: retired Cognitive needs: No Hearing needs: No Vision needs: Yes Review of Systems Const Denies chills, Denies fatigue, Denies fever(s), Denies frequent falls, Denies weakness, Denies weight gain and Denies weight loss ENT Denies dizziness Card Denies chest pain, Denies leg edema, Denies lightheadedness, Denies palpitations, Denies dyspnea, Denies dyspnea on exertion, Denies orthopnea and Denies other (loss of consciousness) Resp Denies cough, Denies dyspnea and Denies dyspnea on exertion GI Denies hematochezia and Denies change in stool character Musc Denies abnormal gait, Denies muscle weakness, Denies numbness, Denies radiating pain into limb and Denies tingling Neuro Denies abnormal gait, Denies dizziness, Denies frequent falls, Denies numbness, Denies tingling and Denies weakness Endo Denies fatigue and Denies palpitations Physical Exam Vital Signs: Last Vital Signs Pulse 55 03/04/23 10:08 BP 120/80 03/04/23 10:08 BMI result Body Mass Index 35.4 GENERAL APPEARANCE: in no acute distress, pleasant. NECK: no carotid bruit, no jugular venous distention. SKIN: no suspicious lesions, warm and dry. HEART: no murmurs, irregular rate and rhythm. LUNGS: clear to auscultation bilaterally. ABDOMEN: soft, nontender. EXTREMITIES: no edema. PERIPHERAL PULSES: equal. NEUROLOGIC: No gross deficits, AAO X 3 Office Procedures EKG Details: Atrial fibrillation with slow ventricular response 50 beats per minute, low voltage, cannot rule out anterior infarct, inferior infarct, QTC 440 milliseconds. [id number]-[id number], Complete Assessment & Plan Assessment & Plan (1) Other persistent atrial fibrillation: Code(s): I48.19 - Other persistent atrial fibrillation (2) Hypertension, essential: Code(s): I10 - Essential (primary) hypertension Plan Kathy 82-year-old gentleman who is here for follow-up. He has background of hypertension and atrial fibrillation. He has been asymptomatic from AFib. He was cardioverted in the past but developed atrial fibrillation again. We discussed and decided to re-attempt cardioversion. Initially was given a script for Multaq but that was too expensive and eventually we put him on flecainide 50 mg twice a day and cardioverted him successfully. Post cardioversion he did not have any significant change in his symptoms and continues to get mild fatigue and shortness of breath. He is back in AFib on follow-up. We discussed that he is asymptomatic from AFib and has normal LV function. We have cardioverted him and he has reverted to AFib again. After discussion we have decided to pursue a rate control strategy. I am stopping the flecainide. Continue Toprol-XL 25 mg daily. Blood pressure control is good with amlodipine 10 mg, hydrochlorothiazide 25 mg, losartan 50 mg and Toprol-XL 25 mg daily. He is on anticoagulation with apixaban 5 mg twice a day which should be continued. Thank you for allowing me to participate in the care of your patient. Please feel free to contact me if you have any questions. Medications: Discontinued metoprolol succinate ER 25 mg PO DAILY 60 tabs 3RF Coding Level of Care Code Est Pt Level 4 (98079) Diagnoses Other persistent atrial fibrillation I48.19 Hypertension, essential I10 CPT Codes EKG - CPT: 51556-[id number], Complete ([id number])
== END 2023-03-04 10:43 | disposition home or self-care (01) ==
LOC: HO.HCS 10:07
PROVIDERS: PCP Internal Medicine; Visit Provider Internal Medicine Cardiovascular Disease
DX: I48.19 Other persistent atrial fibrillation (principal); I10 Essential (primary) hypertension
CPT/HCPCS: 93010; 99214

== ENCOUNTER → 2023-03-04 10:07 | Outpatient (BNVA) | payer OTHER, SELFPAY | PROVIDERS: PCP Internal Medicine; Visit Provider Internal Medicine Cardiovascular Disease | DX: I48.19 Other persistent atrial fibrillation (principal); I10 Essential (primary) hypertension; Z79.01 Long term (current) use of anticoagulants; Z79.899 Other long term (current) drug therapy | CPT/HCPCS: 93005 ==

== ENCOUNTER 2023-06-17 09:06 | Outpatient (REF) | payer OTHER, SELFPAY ==
[2023-06-17 12:02] LABS: Estimated Average Glucose 180 mg/dL; Hemoglobin A1c % 7.9 % (<6.0)
[2023-06-17 12:26] LABS: Alanine Aminotransferase 22 U/L (0-40); Albumin Level 4.1 g/dL (3.5-5.0); Alkaline Phosphatase 46 U/L (39-117); Anion Gap 14 (12-20); Aspartate Amino Transferase 17 U/L (5-37); Bilirubin Total 1.4 mg/dL (0.0-1.0); Blood Urea Nitrogen 14 mg/dL (9-16); Calcium 9.8 mg/dL (8.4-10.2); Carbon Dioxide 25 mmol/L (22-29); Chloride 102 mmol/L (96-108); Estimated Glomerular Filt Rate > 60; Glucose Random 259 mg/dL (60-115); Potassium 4.1 mmol/L (3.3-5.1); Sodium 137 mmol/L (135-145); Total Protein 6.9 g/dL (6.5-8.0)
== END 2023-06-17 09:07 | disposition home or self-care (01) ==
LOC: HO.HMGCLDS 09:06
PROVIDERS: PCP Internal Medicine; Visit Provider Internal Medicine
DX: E13.9 Other specified diabetes mellitus without complications (principal); I10 Essential (primary) hypertension
CPT/HCPCS: 36415; 80053; 83036

== ENCOUNTER 2023-06-21 08:00 | Outpatient (AMB) | payer OTHER, SELFPAY ==
--- NOTE | 2023-06-21 08:01 | A.OFFPC_ITS ---
Vital Signs 06/21/23 08:02 Height 5 ft 11 in Weight 252 lb BMI 35.1 BP 112/72 Blood Pressure Location Lt brachial Position Sitting Pulse 65 Pulse Source Pulse Oximeter Pulse Oximetry (%) 99 Oxygen Delivery Method Room Air Intake Visit Reasons: 4m follow up Allergies No Known Allergies Allergy (Verified 06/21/23 08:02) Medication List - Last Reconciled 06/21/23 by Kristine Perez MD amlodipine 10 mg PO BEDTIME apixaban (Eliquis) 5 mg PO BID CPAP As directed glipizide-metformin 2.5-500 mg 1 tab PO BEDTIME hydrochlorothiazide 25 mg PO QAM losartan 50 mg PO DAILY metoprolol succinate ER 25 mg PO DAILY omeprazole 20 mg PO DAILY 90 days Tobacco use date assessed: 06/21/23 Dental Screening Dental Screen Date: 06/21/23 Did you have a dental visit in the last 12 months?: Yes Did you have a dental problem in the last 6 months where you did not have access to dental care?: No Was dental information given to patient?: Patient has dentist HPI 4m follow up HPI Details Patient is 62-year-old gentleman came in today for his regular follow- up appointment Continue to be in AFib, currently he is on metoprolol 25 mg, I reviewed cardiology note from February, he was tried on flecainide but that did not work. Currently patient is doing well he has good stamina and does not feel short of breath. Diabetes non insulin dependent: Patient is on glipizide metformin 2.5-500 mg labs done recently shows hemoglobin A1c of 7.9 I am increasing his medication to b.i.d.. He will repeat labs before his next visit Blood pressure is stable: Patient is on hydrochlorothiazide 25 mg, amlodipine 10 mg and losartan 50 mg. GERD is stable with omeprazole He has stopped drinking alcohol since April of last year and is feeling better. Obstructive sleep apnea: Doing much better with CPAP, using it for 8 hours BMI is elevated having difficulty losing weight Follow-up 4 months Flu vaccine was given today [facility] Medical History Atrial fibrillation status post cardioversion History of cardioversion Atrial fibrillation Osteoarthritis Obesity Tremor of both hands ED (erectile dysfunction) Sleep apnea Diabetes 1.5, managed as type 2 Chronic GERD Hypertension, essential Surgical History History of shoulder surgery Umbilical hernia History of colonoscopy Family History Father No problems noted. Mother No problems noted. Brother No problems noted. Brother No problems noted. Brother No problems noted. Son No problems noted. Daughter No problems noted. Social History Housing: House Are you a primary behavioral health care manager to a significant other at home: No Do you presently have visiting nurse or other home services: No Alcohol intake: current Alcohol intake frequency: former alcohol drinker Alcohol type: beer Patient Tobacco Use Status: Former Tobacco user Quit Date: 1989 Tobacco use type: Cigarette Years Smoked: 12 e-Cigarette/Vaping Use: Never Used Second Hand Smoke Exposure: No service: Yes Current occupational status: retired Cognitive needs: No Hearing needs: No Vision needs: Yes Questionnaire Thrive Questionnaire Date Thrive assessed: 10/12/22 RUSTAM-7 AMB Questionnaire RUSTAM-7 Date RUSTAM - 7 assessed: 10/12/22 Source: Developed by Drs. Kiko Brasher, Jessie Iniguez, Julio Almazan and colleagues, with an educational lorenzo from [employer] Review of Systems Const Denies chills, Denies fever(s), Denies night sweats and Denies weight loss Eyes Denies blurry vision and Denies eye discharge ENT Denies dysphagia, Denies vertigo, Denies disequilibrium, Denies tinnitus, Denies sinus pressure and Denies sore throat Card Denies acrocyanosis, Denies chest pain at rest, Denies chest pain with activity, Denies syncope, Denies lightheadedness, Denies palpitations and Denies dyspnea Resp Denies chest congestion, Denies cough, Denies hemoptysis, Denies pain with cough and Denies dyspnea GI Denies dysphagia, Denies fecal incontinence, Denies diarrhea and Denies nausea Musc Denies tingling Skin/Breast Denies pruritus, Denies non-healing lesions, Denies rash and Denies jaundice Neuro Denies vertigo, Denies syncope, Denies tingling, Denies paresthesias, Denies tremor(s) and Denies disequilibrium Psych Denies panic attacks and Denies paranoia Endo Denies cold intolerance, Denies heat intolerance and Denies palpitations Thanh/Lymph Denies easy bleeding Physical exam (Primary Care) Vital Signs: Last Vital Signs Pulse 65 06/21/23 08:02 BP 112/72 06/21/23 08:02 Pulse Ox 99 06/21/23 08:02 Oxygen Delivery Method Room Air 06/21/23 08:02 BMI result Body Mass Index 35.1 Tobacco/Smoking Status: Tobacco use Status Tobacco use date assessed 06/21/23 06/21/23 08:03 Patient Tobacco Use Status Former Tobacco user 06/21/23 08:03 Tobacco use type Cigarette 06/21/23 08:03 e-Cigarette/Vaping Use Never Used 06/21/23 08:03 Thrive Assessment: Date of Thrive Assessment Date Thrive assessed 10/12/22 06/21/23 08:03 Const General: cooperative, comfortable and no acute distress Orientation/consciousness: patient oriented x3 HENMT Head: Yes normocephalic and Yes atraumatic Ears: hearing grossly normal bilaterally and external ears normal General nose exam: Normal external nose present Face and sinus: No erythema and No edema Mouth: lip normal and no drooling Eyes General: appearance normal, both eyes and all related structures Eyelids: Yes eyelids normal Conjunctivae: conjunctivae normal Sclerae: sclerae normal Pupils: Equal, round and reactive pupils present EOM: EOMs intact bilaterally Neck Neck: Yes trachea midline and Yes supple Resp Effort & Inspection: normal respiratory effort, no audible wheezes and no cough Auscultation: clear to auscultation bilaterally Cardio Other: Irregularly irregular Heart sounds: S1 normal heart sound present and S2 normal heart sound present Skin General skin exam: elasticity normal and turgor normal Neuro General: patient oriented x3 and gait normal Cranial nerves: Yes Equal, round and reactive pupils present Extrem Left upper extremity: no edema Right lower extremity: no edema Psych Appearance: grossly normal Mental Status: mental status grossly normal Speech and movement: Normal speech and movement present Affect: normal affect Attitude: cooperative Thought process: Normal thought process present Thought content: Normal thought content present Insight: Good insight present (Psych) Judgement: Good judgement present (Psych) Office Procedures Flu Questionnaire Does the patient have a severe egg allergy?: No Does the patient have severe life threatening allergies?: No Does the patient have a fever or illness today?: No Has the patient ever had Guillain-[place] Syndrome?: No Has the patient ever had any past reaction to a flu shot?: No Immunizations flu vacc [id number] 6mos up(PF) 60 mcg(15 mcgx4)/0.5 mL IM syringe Performing Provider: Kristine Perez MD Performing Location: [facility] Administered by: Moriah Navarro CMA on 06/21/23 08:25 Dose Route Admin Location Dispensed Lot Number Expiration Date NDC Senior Water Resources Engineer 0.5 mL IM Right Deltoid 0.5 mL [id number] 02/23/24 30592-672-32 [employer] VIS Given Date VIS Provided VIS Publication Date 06/21/23 Single Vaccine 21 Eligibility Eligibility Date Funding Source Not [facility] Eligible 06/21/23 Private Assessment and Plan Assessment & Plan (1) Hypertension, essential: Code(s): I10 - Essential (primary) hypertension (2) Diabetes 1.5, managed as type 2: Comment: does not check glucose at home-taking glipizide-metformin combo. once/day Code(s): E13.9 - Other specified diabetes mellitus without complications (3) Chronic GERD: Code(s): K21.9 - Gastro-esophageal reflux disease without esophagitis (4) CLAUDETTE (obstructive sleep apnea): Comment: Severe degree of sleep apnea. The AHI was 46/hr and supine AHI was 56/hr and oxygen guera was 80% Code(s): G47.33 - Obstructive sleep apnea (adult) (pediatric) (5) Obesity due to excess calories: Code(s): E66.09 - Other obesity due to excess calories Qualifiers: Body mass index: BMI 35.0-35.9 Obesity classification: adult class 2 (BMI 35 - 39.9) Serious obesity comorbidity presence: with serious comorbidity Qualified Code(s): E66.01 - Morbid (severe) obesity due to excess calories; Z68.35 - Body mass index [BMI] 35.0-35.9, adult (6) Other persistent atrial fibrillation: Code(s): I48.19 - Other persistent atrial fibrillation Plan Patient is 62-year-old gentleman came in today for his regular follow-up appointment Continue to be in AFib, currently he is on metoprolol 25 mg, I reviewed cardiology note from February, he was tried on flecainide but that did not work. Currently patient is doing well he has good stamina and does not feel short of breath. Diabetes non insulin dependent: Patient is on glipizide metformin 2.5-500 mg labs done recently shows hemoglobin A1c of 7.9 I am increasing his medication to b.i.d.. He will repeat labs before his next visit Blood pressure is stable: Patient is on hydrochlorothiazide 25 mg, amlodipine 10 mg and losartan 50 mg. GERD is stable with omeprazole He has stopped drinking alcohol since April of last year and is feeling better. Obstructive sleep apnea: Doing much better with CPAP, using it for 8 hours BMI is elevated having difficulty losing weight Follow-up 4 months Flu vaccine was given today Orders: Orders Hemoglobin A1c Today E13.9 - Other specified diabetes mellitus without complications, E66.09 - Other obesity due to excess calories, G47.33 - Obstructive sleep apnea (adult) (pediatric), I10 - Essential (primary) hypertension, I48.19 - Other persistent atrial fibrillation, K21.9 - Gastro- esophageal reflux disease without esophagitis Microalbumin, Random (w Creat) Today E13.9 - Other specified diabetes mellitus without complications, E66.09 - Other obesity due to excess calories, G47.33 - Obstructive sleep apnea (adult) (pediatric), I10 - Essential (primary) hypertension, I48.19 - Other persistent atrial fibrillation, K21.9 - Gastro- esophageal reflux disease without esophagitis Complete Blood Count Auto Diff Today E13.9 - Other specified diabetes mellitus without complications, E66.09 - Other obesity due to excess calories, G47.33 - Obstructive sleep apnea (adult) (pediatric), I10 - Essential (primary) hypertension, I48.19 - Other persistent atrial fibrillation, K21.9 - Gastro- esophageal reflux disease without esophagitis Comprehensive Met. Panel Today E13.9 - Other specified diabetes mellitus without complications, E66.09 - Other obesity due to excess calories, G47.33 - Obstructive sleep apnea (adult) (pediatric), I10 - Essential (primary) hypertension, I48.19 - Other persistent atrial fibrillation, K21.9 - Gastro- esophageal reflux disease without esophagitis LDL Cholesterol Direct Today E13.9 - Other specified diabetes mellitus without complications, E66.09 - Other obesity due to excess calories, G47.33 - Obstructive sleep apnea (adult) (pediatric), I10 - Essential (primary) hypertension, I48.19 - Other persistent atrial fibrillation, K21.9 - Gastro- esophageal reflux disease without esophagitis Influenza [id number] Immunization Today Z23 - Encounter for immunization Medications: Changed From glipizide-metformin 2.5-500 mg 1 tab PO BEDTIME 90 tabs 1RF To glipizide-metformin 2.5-500 mg 1 tab PO BID 180 tabs 1RF 90 days Coding Level of Care Code Est Pt Level 4 (71860) Diagnoses Hypertension, essential I10 Diabetes 1.5, managed as type 2 E13.9 Chronic GERD K21.9 CLAUDETTE (obstructive sleep apnea) G47.33 Class 2 severe obesity due to excess calories with serious comorbidity and body mass index (BMI) of 35.0 to 35.9 in adult E66.01; Z68.35 Body mass index: BMI 35.0-35.9 Obesity classification: adult class 2 (BMI 35 - 39.9) Serious obesity comorbidity presence: with serious comorbidity Other persistent atrial fibrillation I48.19
[2023-06-21 08:02] VITALS: BP 112/72; PULSE 65; O2SAT 99; BMI 35.1
== END 2023-06-21 08:30 | disposition home or self-care (01) ==
PROVIDERS: PCP Internal Medicine; Visit Provider Internal Medicine
DX: E13.9 Other specified diabetes mellitus without complications (principal); E66.01 Morbid (severe) obesity due to excess calories; I48.19 Other persistent atrial fibrillation; Z68.35 Body mass index [BMI] 35.0-35.9, adult; Z23 Encounter for immunization; I10 Essential (primary) hypertension; K21.9 Gastro-esophageal reflux disease without esophagitis; G47.33 Obstructive sleep apnea (adult) (pediatric)
CPT/HCPCS: 90471; 90686; 99214

== ENCOUNTER 2023-07-22 15:49 | Outpatient (AMB) | payer OTHER, SELFPAY ==
[2023-07-22 15:51] VITALS: BP 114/72; PULSE 56; BMI 35.8
--- NOTE | 2023-07-22 15:51 | A.OFFVIS_ITS ---
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 Today he reports he has been having some episodes of lightheadedness. He is unsure if it is his blood sugar or the atrial fibrillation. He has not had any presyncope, syncope, falls. He notices that he just a randomly feels spacey and it will go on for a few minutes before improving. This is a newer symptom for him. In the past he recalls having symptoms like this with quick position changes from sitting to standing. He has had no recent medication changes. He tells me his blood sugars are mostly controlled. He notices increased fatigue since having atrial fibrillation. He feels that his breathing is normal but at times he has to take an extra deep breath in. No chest discomfort at rest or with activity. No PND, orthopnea or edema. No bleeding issues with Eliquis. Taking all meds as directed. He is asking about treating of AFib with ablation. [facility] Medical History Atrial fibrillation status post cardioversion History of cardioversion Atrial fibrillation Osteoarthritis Obesity Tremor of both hands ED (erectile dysfunction) Sleep apnea Diabetes 1.5, managed as type 2 Chronic GERD Hypertension, essential Surgical History History of shoulder surgery Umbilical hernia History of colonoscopy Family History Father No problems noted. Mother No problems noted. Brother No problems noted. Brother No problems noted. Brother No problems noted. Son No problems noted. Daughter No problems noted. Housing: House Are you a primary property caretaker to a significant other at home: No Do you presently have visiting nurse or other home services: No Alcohol intake: current Alcohol intake frequency: former alcohol drinker Alcohol type: beer Patient Tobacco Use Status: Former Tobacco user Quit Date: 1989 Tobacco use type: Cigarette Years Smoked: 12 e-Cigarette/Vaping Use: Never Used Second Hand Smoke Exposure: No service: Yes Current occupational status: retired Cognitive needs: No Hearing needs: No Vision needs: Yes Review of Systems Const All systems reviewed & are unremarkable except as noted in HPI and below Reports fatigue ENT Details: lightheaded at times. Reports dizziness Card Denies chest pain, Denies chest pain at rest, Denies chest pain with activity, Denies rapid heart rate, Denies pedal edema, Denies edema, Denies leg edema, Denies lightheadedness, Denies palpitations, Denies dyspnea, Denies dyspnea on exertion and Denies orthopnea Resp Details: Has to take extra breaths periodically Denies cough, Denies dyspnea and Denies dyspnea on exertion GI Denies hematochezia and Denies change in stool character Musc Denies abnormal gait, Denies limited range of motion, Denies muscle cramps, Denies muscle weakness, Denies numbness, Denies radiating pain into limb, Denies stiffness and Denies tingling Neuro Denies abnormal gait, Reports dizziness, Denies numbness and Denies tingling Endo Reports fatigue and Denies palpitations Physical Exam Vital Signs: Last Vital Signs Pulse 56 07/22/23 15:51 BP 114/72 07/22/23 15:51 BMI result Body Mass Index 35.8 Const General: cooperative, healthy appearing, comfortable and no acute distress Orientation/consciousness: patient oriented x3 Neck Neck: Yes normal visual inspection Resp Effort & Inspection: normal respiratory effort Auscultation: clear to auscultation bilaterally, no rales, no rhonchi and no wheezes Cardio Jugular venous distension: no JVD Rate: regular rate Rhythm: abnormal rhythm Heart sounds: S1 normal heart sound present, S2 normal heart sound present, no murmurs and no rubs Neuro General: patient oriented x3 Extrem General: Yes normal to inspection Psych Appearance: grossly normal Mental Status: mental status grossly normal Speech and movement: Normal speech and movement present Assessment & Plan Assessment & Plan (1) Persistent atrial fibrillation: Code(s): I48.19 - Other persistent atrial fibrillation Plan: Initial finding of atrial fibrillation 03/02/2022 when he came for colonoscopy. Echocardiogram done 03/08/2022 showed EF 60-65%, mildly dilated left atrium, normal valves. Since that time he has undergone 2 cardioversions with recurrent atrial fibrillation. The 2nd cardioversion was done on flecainide. Amiodarone was not used due to his age. Multaq was ordered however he could not afford the co-pay. On last visit in February 2023 it was determined that he would be treated with rate control due to persistence of AFib. Today he states he just does not feel as well as he used to. He has been experiencing some lightheadedness which occurs randomly. He also has fatigue which he feels has been present since the start of atrial fibrillation. He is currently on metoprolol for heart rate control. Pulse is in the normal range today. Last EKG done 03/04/2023 showed atrial fibrillation, rate 55, QTC 440 milliseconds. He had been on flecainide at that time which was then stopped. He continues on Eliquis for anticoagulation with no bleeding issues. At this visit he is asking about atrial fibrillation ablation. He does know friends and coworkers that have have ablations with successful resolution of atrial fibrillation. Will refer him to EP for evaluation for AFib ablation. He is agreeable to this plan. Cardiology follow-up 4 months, sooner if needed. Continue current meds without change. Reviewed need for good hydration, use caution when going sitting to standing. Sit if he becomes lightheaded. Check blood sugar if he is feeling lightheaded. ED care if ever needed for symptoms. (2) Lightheaded: Code(s): R42 - Dizziness and giddiness Plan: As above. Unclear if this is related to atrial fibrillation or not (3) Sleep apnea: Comment: cpap Code(s): G47.30 - Sleep apnea, unspecified Plan: Compliant with CPAP. Follows with Sleep Medicine (4) Hypertension, essential: Code(s): I10 - Essential (primary) hypertension Plan: Well controlled at this time. No med changes made Orders: Referrals Cardiac Electrophysiology Referral I48.19 - Other persistent atrial fibrillation Coding Level of Care Code Est Pt Level 4 (50510) Diagnoses Persistent atrial fibrillation I48.19 Lightheaded R42 Sleep apnea G47.30 Hypertension, essential I10 Time Spent (min) 30
== END 2023-07-22 16:39 | disposition home or self-care (01) ==
PROVIDERS: PCP Internal Medicine; Visit Provider Nurse Practitioner Family
DX: I48.19 Other persistent atrial fibrillation (principal); R42 Dizziness and giddiness; G47.30 Sleep apnea, unspecified; I10 Essential (primary) hypertension
CPT/HCPCS: 99214

== ENCOUNTER → 2023-07-22 15:49 | Outpatient (BNVA) | payer OTHER, SELFPAY | PROVIDERS: PCP Internal Medicine; Visit Provider Nurse Practitioner Family ==

== ENCOUNTER 2023-08-06 08:43 | Outpatient (AMB) | payer OTHER, SELFPAY ==
--- NOTE | 2023-08-06 09:04 | MHC.OFFVIS ---
Intake Vital Signs 08/06/23 09:05 Height 5 ft 11 in Weight 259 lb 8 oz BMI 36.2 BP 100/84 Blood Pressure Location Rt brachial Position Sitting Pulse 53 Pulse Source Pulse Oximeter Pulse Oximetry (%) 96 Oxygen Delivery Method Room Air Intake Visit Reasons: 6 mnts f/u for sleep - Confirmed Intake Note: patient presents for follow up sleep. Allergies No Known Allergies Allergy (Verified 08/06/23 09:07) HPI HPI Comments History of Present Illness Details 62 y/o male patient presents for follow up of CLAUDETTE on CPAP. The CPAP compliance and therapy response reviewed. He is on CPAP at [id number]. The usage days 100% and the average usage hours 8 hours. The AHI was 6.9 and the apnea index was central 3.7 and obstructive 2. Pt reports that he got new nasal mask, feels good and sleeps better with it. Pt reports having disrupted sleep. He does not have routine sleep schedule, watches TV or movie before bedtime. He reports Afib, uncontrolled withe metoprolol, will have consultation for ablation for Afib in Aug. [facility] Medical History Atrial fibrillation status post cardioversion History of cardioversion Atrial fibrillation Osteoarthritis Obesity Tremor of both hands ED (erectile dysfunction) Sleep apnea Diabetes 1.5, managed as type 2 Chronic GERD Hypertension, essential Surgical History History of shoulder surgery Umbilical hernia History of colonoscopy Family History Father No problems noted. Mother No problems noted. Brother No problems noted. Brother No problems noted. Brother No problems noted. Son No problems noted. Daughter No problems noted. Social History Housing: House Are you a primary direct care counselor to a significant other at home: No Do you presently have visiting nurse or other home services: No Alcohol intake: current Alcohol intake frequency: former alcohol drinker Alcohol type: beer Comment: medicated with po oxycodone Patient Tobacco Use Status: Former Tobacco user Quit Date: 1989 Tobacco use type: Cigarette Years Smoked: 12 e-Cigarette/Vaping Use: Never Used Second Hand Smoke Exposure: No service: Yes Current occupational status: retired Cognitive needs: No Hearing needs: No Vision needs: Yes Review of Systems Const All systems reviewed & are unremarkable except as noted in HPI and below ENT Reports Normal hearing present Neuro Reports Normal hearing present Physical Exam Vital Signs: Last Vital Signs Pulse 53 08/06/23 09:05 BP 100/84 08/06/23 09:05 Pulse Ox 96 08/06/23 09:05 Oxygen Delivery Method Room Air 08/06/23 09:05 BMI result Body Mass Index 36.2 Const General: cooperative and no acute distress Nutritional Appearance: obese Orientation/consciousness: patient oriented x3 Limitations: no limitations HEENT Throat: Yes other (mallampati grade 3) Neck Neck: Yes full ROM and Yes supple Resp Effort & Inspection: normal respiratory effort and able to speak in complete sentences Neuro General: patient oriented x3, gait normal and moves all extremities Cranial nerves: Yes Bilaterally intact EOM present, Yes Normal facial strength present, Yes Midline tongue present, Yes Symmetric palate elevation present, Yes Normal hearing present, Yes Ability to bilaterally rotate head present and Yes Ability to bilaterally elevate shoulders present Gait exam (Neuro): Normal gait present Psych Appearance: grossly normal Mental Status: mental status grossly normal Affect: normal affect Attitude: cooperative Assessment & Plan Assessment & Plan (1) CLAUDETTE (obstructive sleep apnea): Comment: Severe degree of sleep apnea. The AHI was 46/hr and supine AHI was 56/hr and oxygen guera was 80% Code(s): G47.33 - Obstructive sleep apnea (adult) (pediatric) Plan Continue to use CPAP at [id number] as patient experiences good clinical effects. Continue to monitor the apnea index. Stressed compliance, use CPAP nightly and more than 4 hours. Sleep hygiene education provided, having routine sleep schedule and limit electronic use before bedtime. May try Calm Sleep supplement. Coding Level of Care Code Est Pt Level 3 (88169) Diagnoses CLAUDETTE (obstructive sleep apnea) G47.33
[2023-08-06 09:05] VITALS: BP 100/84; PULSE 53; O2SAT 96; BMI 36.2
== END 2023-08-06 09:28 | disposition home or self-care (01) ==
PROVIDERS: PCP Internal Medicine; Visit Provider Nurse Practitioner Family
DX: G47.33 Obstructive sleep apnea (adult) (pediatric) (principal)
CPT/HCPCS: 99213

== ENCOUNTER → 2023-08-06 08:43 | Outpatient (BNVA) | payer OTHER, SELFPAY | PROVIDERS: PCP Internal Medicine; Visit Provider Nurse Practitioner Family ==

== ENCOUNTER 2023-10-18 07:53 | Outpatient (AMB) | payer OTHER, SELFPAY ==
[2023-10-18 07:54] VITALS: BP 110/70; PULSE 57; O2SAT 96; BMI 36.4
--- NOTE | 2023-10-18 07:54 | A.OFFPC_ITS ---
Vital Signs 10/18/23 07:54 Height 5 ft 11 in Weight 261 lb BMI 36.4 BP 110/70 Blood Pressure Location Lt brachial Position Sitting Pulse 57 Pulse Source Pulse Oximeter Pulse Oximetry (%) 96 Oxygen Delivery Method Room Air Intake Visit Reasons: 8m follow up Allergies No Known Allergies Allergy (Verified 10/18/23 07:56) Medication List - Last Reconciled 10/18/23 by Kristine Perez MD amlodipine 10 mg PO BEDTIME apixaban (Eliquis) 5 mg PO BID 90 days CPAP As directed glipizide-metformin 2.5-500 mg 1 tab PO BID 90 days hydrochlorothiazide 25 mg PO QAM losartan 50 mg PO DAILY metoprolol succinate ER 25 mg PO DAILY omeprazole 20 mg PO DAILY 90 days Tobacco use date assessed: 10/18/23 Dental Screening Dental Screen Date: 10/18/23 Did you have a dental visit in the last 12 months?: Yes Did you have a dental problem in the last 6 months where you did not have access to dental care?: No Was dental information given to patient?: Patient has dentist HPI 8m follow up HPI Details Seeing Dr. Montemayor jigger operator, under discussion with him regarding starting new medication for AFib or ablation Symptomatic with lightheadedness every now and then I noticed his blood pressure is running low around 100 systolic to 110 systolic Encouraged patient to get blood pressure monitor start monitoring it, for now reduced amlodipine to half a tablet that will be 5 mg and continue rest of the medications Patient is on hydrochlorothiazide 25 mg and losartan 50 mg A1c is 8.1 today, he is due increase glipizide metformin 2 tablets in the morning and 1 at night Has appointment on with me again, patient will bring his monitor He has gained 9 lb since seen last in May Labs done in May reviewed again GERD is stable with omeprazole He has stopped drinking alcohol since April of 2022 . Obstructive sleep apnea: Using CPAP, for at least 8 hours at night [facility] Medical History Atrial fibrillation status post cardioversion History of cardioversion Atrial fibrillation Osteoarthritis Obesity Tremor of both hands ED (erectile dysfunction) Sleep apnea Diabetes 1.5, managed as type 2 Chronic GERD Hypertension, essential Surgical History History of shoulder surgery Umbilical hernia History of colonoscopy Family History Father No problems noted. Mother No problems noted. Brother No problems noted. Brother No problems noted. Brother No problems noted. Son No problems noted. Daughter No problems noted. Social History Housing: House Are you a primary nurse care manager to a significant other at home: No Do you presently have visiting nurse or other home services: No Alcohol intake: current Alcohol intake frequency: former alcohol drinker Alcohol type: beer Comment: medicated with po oxycodone Patient Tobacco Use Status: Former Tobacco user Quit Date: 1989 Tobacco use type: Cigarette Years Smoked: 12 e-Cigarette/Vaping Use: Never Used Second Hand Smoke Exposure: No service: Yes Current occupational status: retired Cognitive needs: No Hearing needs: No Vision needs: Yes Questionnaire PHQ-9 Over the last 2 weeks, how often have you been bothered by any of the following problems? 1. Little interest or pleasure in doing things: not at all 2. Feeling down, depressed, or hopeless: not at all 3. Trouble falling or staying asleep, or sleeping too much: not at all 4. Feeling tired or having little energy: not at all 5. Poor appetite or overeating: not at all 6. Feeling bad about yourself - or that you are a failure or have let yourself or your family down: not at all 7. Trouble concentrating on things, such as reading the newspaper or watching television: not at all 8. Moving or speaking so slowly that other people could have noticed. Or the o pposite - being so fidgety or restless that you have been moving around a lot more than usual: not at all 9. Thoughts that you would be better off or of hurting yourself in some way: not at all Total score: 0 Depression Screening Interpretation: Negative Depression Screening Done: Yes 88704 - PHQ-9 Billing: Yes Source: Developed by Drs. Kiko Brasher, Jessie Iniguez, Julio Almazan and colleagues, with an educational lorenzo from [employer]. Thrive Questionnaire Date Thrive assessed: 10/18/23 I am a: Patient What is your living situation today?: I have a steady place to live Within the past 12 months, did the food you bought not last and you didn't have the money to get more?: Never true Within the past 12 months, did you worry whether your food would run out before you got money to buy more?: Never true Do you have trouble paying for medicines?: No Do you have trouble getting transportation to medical appointments?: No Do you have trouble paying your heating and electricity bill?: No Do you have trouble taking care of your child, family member or friend?: No Do you have trouble with day-to-day activities such as bathing, preparing meals, shopping, managing finances, etc.?: No Are you currently unemployed and looking for a job?: No Are you interested in more education?: No Please select the resources that you would like help with: None Currently or been in a relationship where the following occur: no concerns reported THRIVE Score: 0 AUDIT C Alcohol Use Questionnaire (AUDIT-C) 1. How often do you have a drink containing alcohol?: Never 3. How often do you have six or more drinks on one occasion?: Never Total Score: 0 Score Reviewed/Action Taken: No RUSTAM-7 AMB Questionnaire RUSTAM-7 Date RUSTAM - 7 assessed: 10/18/23 Feeling nervous, anxious, or on edge: 0 = Not at all Not being able to stop or control worryin = Not at all Worrying too much about different things: 0 = Not at all Trouble relaxin = Not at all Being so restless that it is hard to sit still: 0 = Not at all Becoming easily annoyed or irritable: 0 = Not at all Feeling afraid as if something awful might happen: 0 = Not at all Total RUSTAM-7 score (0-4 normal; 5-9 mild; 10-14 moderate; 15-21 severe): 0 Source: Developed by Drs. Kiko Brasher, Jessie Iniguez, Julio Almazan and colleagues, with an educational lorenzo from [employer]. RUSTAM-7 Assessment Billing RUSTAM-7 Assessment Tool: RUSTAM-7 Assessment 01695 Review of Systems Const Denies chills and Denies fever(s) ENT Denies epistaxis and Denies nasal discharge Card Denies chest pain Resp Denies chest congestion, Denies cough and Denies hemoptysis GI Denies diarrhea and Denies nausea Skin/Breast Denies rash Neuro Reports no additional complaints Psych Reports no additional complaints Endo Reports no additional complaints Physical exam (Primary Care) Vital Signs: Last Vital Signs Pulse 57 10/18/23 07:54 BP 110/70 10/18/23 07:54 Pulse Ox 96 10/18/23 07:54 Oxygen Delivery Method Room Air 10/18/23 07:54 BMI result Body Mass Index 36.4 Tobacco/Smoking Status: Tobacco use Status Tobacco use date assessed 10/18/23 10/18/23 07:59 Patient Tobacco Use Status Former Tobacco user 10/18/23 07:59 Tobacco use type Cigarette 10/18/23 07:59 e-Cigarette/Vaping Use Never Used 10/18/23 07:59 PHQ-9: PHQ-9 Score PHQ-9: Total score 0 10/18/23 08:22 Depression Screening Interpretation: Negative Thrive Assessment: Date of Thrive Assessment Date Thrive assessed 10/18/23 10/18/23 08:18 Currently or been in a relationship where the following occur: no concerns reported Const General: cooperative, comfortable and no acute distress Orientation/consciousness: patient oriented x3 HENMT Head: Yes normocephalic Eyes General: appearance normal, both eyes and all related structures Neck Neck: Yes supple Resp Effort & Inspection: normal respiratory effort, no cough and no stridor Cardio Rhythm: regular rhythm Heart sounds: S1 normal heart sound present and S2 normal heart sound present Skin General skin exam: turgor normal Neuro General: patient oriented x3, tone normal and moves all extremities Extrem Right lower extremity: no edema Left lower extremity: no edema Results AMB Hemoglobin A1c AMB Hemoglobin A1c 8.1 % Last Edit by TANNER Billingsley on 10/18/23 08:1 7 Results Reviewed Results Reviewed: Laboratory Last Values Hgb A1c (Clinic) 8.1 % (4.0-6.0) H 10/18/23 08:16 Assessment and Plan Assessment & Plan (1) Hypertension, essential: Code(s): I10 - Essential (primary) hypertension (2) Diabetes 1.5, managed as type 2: Comment: does not check glucose at home-taking glipizide-metformin combo. once/day Code(s): E13.9 - Other specified diabetes mellitus without complications (3) Chronic GERD: Code(s): K21.9 - Gastro-esophageal reflux disease without esophagitis (4) CLAUDETTE (obstructive sleep apnea): Comment: Severe degree of sleep apnea. The AHI was 46/hr and supine AHI was 56/hr and oxygen guera was 80% Code(s): G47.33 - Obstructive sleep apnea (adult) (pediatric) (5) Obesity due to excess calories: Code(s): E66.09 - Other obesity due to excess calories Qualifiers: Body mass index: BMI 35.0-35.9 Obesity classification: adult class 2 (BMI 35 - 39.9) Serious obesity comorbidity presence: with serious comorbidity Qualified Code(s): E66.01 - Morbid (severe) obesity due to excess calories; Z68.35 - Body mass index [BMI] 35.0-35.9, adult (6) Other persistent atrial fibrillation: Code(s): I48.19 - Other persistent atrial fibrillation Plan Seeing Dr. Montemayor jigger operator, under discussion with him regarding starting new medication for AFib or ablation Symptomatic with lightheadedness every now and then I noticed his blood pressure is running low around 100 systolic to 110 systolic Encouraged patient to get blood pressure monitor start monitoring it, for now reduced amlodipine to half a tablet that will be 5 mg and continue rest of the medications Patient is on hydrochlorothiazide 25 mg and losartan 50 mg A1c is 8.1 today, he is due increase glipizide metformin 2 tablets in the morning and 1 at night Has appointment on with me again, patient will bring his monitor He has gained 9 lb since seen last in May Labs done in May reviewed again GERD is stable with omeprazole He has stopped drinking alcohol since April of 2022 . Obstructive sleep apnea: Using CPAP, for at least 8 hours at night Orders: Orders AMB Hemoglobin A1c Today Z13.9 - Encounter for screening, unspecified Medications: Changed From glipizide-metformin 2.5-500 mg 1 tab PO BID 90 days 180 tabs 1RF To glipizide-metformin 2.5-500 mg Two tablets in the morning and 1 at night 12 hours apart 270 tabs 1RF 90 days Coding Level of Care Code Est Pt Level 4 (56210) Diagnoses Hypertension, essential I10 Diabetes 1.5, managed as type 2 E13.9 Chronic GERD K21.9 CLAUDETTE (obstructive sleep apnea) G47.33 Class 2 severe obesity due to excess calories with serious comorbidity and body mass index (BMI) of 35.0 to 35.9 in adult E66.01; Z68.35 Body mass index: BMI 35.0-35.9 Obesity classification: adult class 2 (BMI 35 - 39.9) Serious obesity comorbidity presence: with serious comorbidity Other persistent atrial fibrillation I48.19 Additional Codes RUSTAM-7 Assessment Billing - RUSTAM-7 Assessment Tool: RUSTAM-7 Assessment [id number] ([id number])
== END 2023-10-18 08:28 | disposition home or self-care (01) ==
PROVIDERS: PCP Internal Medicine; Visit Provider Internal Medicine
DX: I48.19 Other persistent atrial fibrillation (principal); E13.9 Other specified diabetes mellitus without complications; E66.01 Morbid (severe) obesity due to excess calories; Z68.35 Body mass index [BMI] 35.0-35.9, adult; I10 Essential (primary) hypertension; K21.9 Gastro-esophageal reflux disease without esophagitis; G47.33 Obstructive sleep apnea (adult) (pediatric)
CPT/HCPCS: 83036; 99214

== ENCOUNTER 2023-10-23 08:20 | Outpatient (AMB) | payer OTHER, SELFPAY ==
[2023-10-23 08:26] VITALS: BP 118/64; PULSE 67; O2SAT 97; BMI 36.8
--- NOTE | 2023-10-23 08:26 | MHC.PC.OV ---
Vital Signs 10/23/23 08:26 Height 5 ft 11 in Weight 264 lb BMI 36.8 BP 118/64 Blood Pressure Location Rt brachial Position Sitting Pulse 67 Pulse Source Pulse Oximeter Pulse Oximetry (%) 97 Oxygen Delivery Method Room Air Intake Visit Reasons: 4 month fu Allergies No Known Allergies Allergy (Verified 10/23/23 08:27) Medication List - Last Reconciled 10/23/23 by Kristine Perez MD amlodipine 5 mg PO BEDTIME apixaban (Eliquis) 5 mg PO BID 90 days CPAP As directed glipizide-metformin 2.5-500 mg Two tablets in the morning and 1 at night 12 hours apart 90 days hydrochlorothiazide 25 mg PO QAM losartan 50 mg PO DAILY metoprolol succinate ER 25 mg PO DAILY omeprazole 20 mg PO DAILY 90 days Tobacco use date assessed: 10/23/23 Dental Screening Dental Screen Date: 10/23/23 Did you have a dental visit in the last 12 months?: Yes Did you have a dental problem in the last 6 months where you did not have access to dental care?: No Was dental information given to patient?: Patient has dentist HPI 4 month fu HPI Details Patient came in today for his blood pressure monitoring His blood pressure is 118 x 64, we reduced amlodipine to 5 mg last visit He is also on hydrochlorothiazide 25 mg and losartan 50 mg along with metoprolol 25 mg Today we monitored blood pressure in both of his arms with his own blood pressure monitor Left arm is in 140s systolic and right arm is in 120s Our blood pressure is checked on right arm Patient says that he has appointment coming up with correction worker he will have it monitored both arms at that visit as well and discuss it with the Cardiology His glipizide was also increased when is A1c came back at 8.1 He is supposed to be taking glipizide metformin 2.5-500 mg 2 tablets in the morning and 1 at night But he has not started it yet as pharmacy has not given it to him because he was not due for refill. Patient has appointment in January for follow-up he will do labs before [facility] Medical History Atrial fibrillation status post cardioversion History of cardioversion Atrial fibrillation Osteoarthritis Obesity Tremor of both hands ED (erectile dysfunction) Sleep apnea Diabetes 1.5, managed as type 2 Chronic GERD Hypertension, essential Surgical History History of shoulder surgery Umbilical hernia History of colonoscopy Family History Father No problems noted. Mother No problems noted. Brother No problems noted. Brother No problems noted. Brother No problems noted. Son No problems noted. Daughter No problems noted. Social History Housing: House Are you a primary career and transition teacher to a significant other at home: No Do you presently have visiting nurse or other home services: No Alcohol intake: current Alcohol intake frequency: former alcohol drinker Alcohol type: beer Comment: medicated with po oxycodone Patient Tobacco Use Status: Former Tobacco user Quit Date: 1989 Tobacco use type: Cigarette Years Smoked: 12 e-Cigarette/Vaping Use: Never Used Second Hand Smoke Exposure: No service: Yes Current occupational status: retired Cognitive needs: No Hearing needs: No Vision needs: Yes Questionnaire Thrive Questionnaire Date Thrive assessed: 10/18/23 AUDIT C Alcohol Use Questionnaire (AUDIT-C) 1. How often do you have a drink containing alcohol?: Never 3. How often do you have six or more drinks on one occasion?: Never Total Score: 0 Score Reviewed/Action Taken: Yes RUSTAM-7 AMB Questionnaire RUSTAM-7 Date RUSTAM - 7 assessed: 10/18/23 Source: Developed by Drs. Kiko Brasher, Jessie Iniguez, Julio Almazan and colleagues, with an educational lorenzo from [employer]. Review of Systems Const Denies chills and Denies fever(s) ENT Denies epistaxis and Denies nasal discharge Card Denies chest pain Resp Denies chest congestion, Denies cough and Denies hemoptysis GI Denies diarrhea and Denies nausea Skin/Breast Denies rash Neuro Reports no additional complaints Psych Reports no additional complaints Endo Reports no additional complaints Physical exam (Primary Care) Vital Signs: Last Vital Signs Pulse 67 10/23/23 08:26 BP 118/64 10/23/23 08:26 Pulse Ox 97 10/23/23 08:26 Oxygen Delivery Method Room Air 10/23/23 08:26 BMI result Body Mass Index 36.8 Tobacco/Smoking Status: Tobacco use Status Tobacco use date assessed 10/23/23 10/23/23 08:32 Patient Tobacco Use Status Former Tobacco user 10/23/23 08:30 Tobacco use type Cigarette 10/23/23 08:30 e-Cigarette/Vaping Use Never Used 10/23/23 08:30 Thrive Assessment: Date of Thrive Assessment Date Thrive assessed 10/18/23 10/23/23 08:30 Const General: cooperative, comfortable and no acute distress Orientation/consciousness: patient oriented x3 HENMT Head: Yes normocephalic Eyes General: appearance normal, both eyes and all related structures Neck Neck: Yes supple Resp Effort & Inspection: normal respiratory effort, no cough and no stridor Cardio Rhythm: regular rhythm Heart sounds: S1 normal heart sound present and S2 normal heart sound present Skin General skin exam: turgor normal Neuro General: patient oriented x3, tone normal and moves all extremities Extrem Right lower extremity: no edema Left lower extremity: no edema Assessment and Plan Assessment & Plan (1) Hypertension, essential: Code(s): I10 - Essential (primary) hypertension (2) Diabetes 1.5, managed as type 2: Comment: does not check glucose at home-taking glipizide-metformin combo. once/day Code(s): E13.9 - Other specified diabetes mellitus without complications Plan Patient came in today for his blood pressure monitoring His blood pressure is 118 x 64, we reduced amlodipine to 5 mg last visit He is also on hydrochlorothiazide 25 mg and losartan 50 mg along with metoprolol 25 mg Today we monitored blood pressure in both of his arms with his own blood pressure monitor Left arm is in 140s systolic and right arm is in 120s Our blood pressure is checked on right arm Patient says that he has appointment coming up with correction worker he will have it monitored both arms at that visit as well and discuss it with the Cardiology His glipizide was also increased when is A1c came back at 8.1 He is supposed to be taking glipizide metformin 2.5-500 mg 2 tablets in the morning and 1 at night But he has not started it yet as pharmacy has not given it to him because he was not due for refill. Patient has appointment in January for follow-up he will do labs before Medications: Changed From amlodipine 10 mg PO BEDTIME 90 tabs 1RF To amlodipine 5 mg PO BEDTIME 90 tabs 1RF Coding Level of Care Code Est Pt Level 3 (48973) Diagnoses Hypertension, essential I10 Diabetes 1.5, managed as type 2 E13.9
== END 2023-10-23 09:14 | disposition home or self-care (01) ==
PROVIDERS: PCP Internal Medicine; Visit Provider Internal Medicine
DX: I10 Essential (primary) hypertension (principal); E13.9 Other specified diabetes mellitus without complications
CPT/HCPCS: 99213

== ENCOUNTER 2023-11-25 09:34 | Outpatient (AMB) | payer OTHER, SELFPAY ==
[2023-11-25 09:52] VITALS: BP 110/60; PULSE 43; BMI 36.5
--- NOTE | 2023-11-25 09:52 | A.OFFVIS_ITS ---
Intake Vital Signs 11/25/23 09:52 Height 5 ft 11 in Weight 261 lb 7.492 oz BMI 36.5 BP 110/60 Blood Pressure Location Lt brachial Position Sitting Pulse 43 L Pulse Source Pulse Oximeter Intake Visit Reasons: 4 month follow-up Intake Note: pt its here for a 4mnth f/up/ pt states that he its doing fine. Adolescent Coordinator Required: No Accompanied by: Self / Same As Patient Allergies No Known Allergies Allergy (Verified 10/23/23 08:27) Medication List - Last Reconciled 11/25/23 by Guillermo Alcantar MD amiodarone 400 mg PO BID amlodipine 5 mg PO BEDTIME apixaban (Eliquis) 5 mg PO BID 90 days CPAP As directed glipizide-metformin 2.5-500 mg Two tablets in the morning and 1 at night 12 hours apart 90 days hydrochlorothiazide 25 mg PO QAM losartan 50 mg PO DAILY metoprolol succinate ER 25 mg PO DAILY omeprazole 20 mg PO DAILY 90 days HPI HPI Comments History of Present Illness Details Pleasant 63-year-old gentleman who is here follow-up. He was seen in the hospital when he presented to short stay surgery for colonoscopy and was found to be in atrial fibrillation. He was completely asymptomatic. He has been on Eliquis without any bleeding. He underwent echocardiography which showed normal left ventricular function without any significant valvular pathology. 11/19/22: After discussion he underwent c ardioversion. Post cardioversion he was seen in the office and unfortunately was back in atrial fibrillation. He is compliant with Eliquis. He underwent right shoulder surgery uneventfully and is recovering from that. We discussed about attempting cardioversion with antiarrhythmic therapy and he was started on Multaq 400 mg twice a day. This was too expensive for him so he did not start Multaq. We decided to start him on flecainide 50 mg twice a day. He underwent successful cardioversion on 11/29/2022. He has been on Toprol-XL, flecainide and apixaban. 03/04/23: He returns for follow-up. EKG in the office is showing atrial fibrillation. He is taking flecainide 50 mg twice a day. Has no palpitations or any other symptoms. Post cardioversion he did not feel any different and continue to get some fatigue and shortness of breath with activity. Does not have any significant dyspnea at this point. Overall has been clinically stable. Taking medications regularly. 11/25/23: Nolan is here for follow-up. We initially took a rate control strategy but on follow-up and after discussion with some of his friends he decided to pursue ablation. He was referred to Dr. Gaines. He is undergoing ablation soon. He has been started on amiodarone and is currently getting a loading dose. His heart rate is in 40s. He has chronic dizziness when he changes posture and no changes in symptoms otherwise. Denying any chest discomfort shortness of breath. Overall clinically stable. [facility] Medical History Atrial fibrillation status post cardioversion History of cardioversion Atrial fibrillation Osteoarthritis Obesity Tremor of both hands ED (erectile dysfunction) Sleep apnea Diabetes 1.5, managed as type 2 Chronic GERD Hypertension, essential Surgical History History of shoulder surgery Umbilical hernia History of colonoscopy Family History Father No problems noted. Mother No problems noted. Brother No problems noted. Brother No problems noted. Brother No problems noted. Son No problems noted. Daughter No problems noted. Social History Housing: House Are you a primary district manager primary care sales to a significant other at home: No Do you presently have visiting nurse or other home services: No Alcohol intake: current Alcohol intake frequency: former alcohol drinker Alcohol type: beer Comment: medicated with po oxycodone Patient Tobacco Use Status: Former Tobacco user Quit Date: 1989 Tobacco use type: Cigarette Years Smoked: 12 e-Cigarette/Vaping Use: Never Used Second Hand Smoke Exposure: No service: Yes Current occupational status: retired Cognitive needs: No Hearing needs: No Vision needs: Yes Review of Systems Const Denies chills, Denies fatigue, Denies fever(s), Denies frequent falls, Denies weakness, Denies weight gain and Denies weight loss ENT Denies dizziness Card Denies chest pain, Denies leg edema, Denies lightheadedness, Denies palpitations, Denies dyspnea and Denies dyspnea on exertion Resp Denies cough, Denies dyspnea and Denies dyspnea on exertion GI Denies hematochezia Musc Denies abnormal gait, Denies muscle weakness, Denies numbness, Denies radiating pain into limb and Denies tingling Neuro Denies abnormal gait, Denies dizziness, Denies frequent falls, Denies numbness, Denies tingling and Denies weakness Endo Denies fatigue and Denies palpitations Physical Exam Vital Signs: Last Vital Signs Pulse 43 L 11/25/23 09:52 BP 110/60 11/25/23 09:52 BMI result Body Mass Index 36.5 GENERAL APPEARANCE: in no acute distress, pleasant. NECK: no carotid bruit, no jugular venous distention. SKIN: no suspicious lesions, warm and dry. HEART: no murmurs, irregular rate and rhythm. LUNGS: clear to auscultation bilaterally. ABDOMEN: soft, nontender. EXTREMITIES: no edema. PERIPHERAL PULSES: equal. NEUROLOGIC: No gross deficits, AAO X 3 Assessment & Plan Assessment & Plan (1) Other persistent atrial fibrillation: Code(s): I48.19 - Other persistent atrial fibrillation Plan [age] year gentleman with persistent atrial fibrillation. He underwent cardioversion 2 times which were unsuccessful despite being on antiarrhythmic therapy. After cardioversion his symptoms were minimal and we decided to rate control strategy initially. He had some discussion with his friends and decided to pursue ablation. He was referred to electrophysiology and will be undergoing ablation. He is started on amiodarone 400 mg twice a day by Dr. Gaines. Clinically has been stable. Continues to be in atrial fibrillation. He will see us back in few months. He is getting ablation in the coming weeks. Usually amiodarone stopped couple of months after the ablation and I am anticipating he will get off the amiodarone after ablation. Thank you for allowing me to participate in the care of your patient. Please feel free to contact me if you have any questions. Coding Level of Care Code Est Pt Level 4 (96957) Diagnoses Other persistent atrial fibrillation I48.19
== END 2023-11-25 10:19 | disposition home or self-care (01) ==
PROVIDERS: PCP Internal Medicine; Visit Provider Internal Medicine Cardiovascular Disease
DX: I48.19 Other persistent atrial fibrillation (principal)
CPT/HCPCS: 99214

== ENCOUNTER → 2023-11-25 09:34 | Outpatient (BNVA) | payer OTHER, SELFPAY | PROVIDERS: PCP Internal Medicine; Visit Provider Internal Medicine Cardiovascular Disease ==

== ENCOUNTER 2023-12-16 08:06 | Outpatient (AMB) | payer OTHER, SELFPAY ==
[2023-12-16 08:19] VITALS: BP 118/70; PULSE 77; TEMP 36.6; O2SAT 98; BMI 36.4
--- NOTE | 2023-12-16 08:19 | MHC.OFFWIV ---
Intake Vital Signs 12/16/23 08:19 Height 5 ft 11 in Weight 261 lb BMI 36.4 BP 118/70 Blood Pressure Location Lt brachial Position Sitting Pulse 77 Pulse Source Pulse Oximeter Temp 97.9 F Temp Source Oral Pulse Oximetry (%) 98 Oxygen Delivery Method Room Air Intake Visit Reasons: EP RT eye redness a (lobby) Intake Note: pt is here for right eye redness, patient had heart ablation surgery on and noticed it saturday/. denies blurred vision, eye discharge. patient states it looks like blood in his eye Patient Tobacco Use Status: Former Tobacco user Quit Date: 1989 Allergies No Known Allergies Allergy (Verified 12/16/23 08:20) Do you need a note to return to daycare/school/sports/work: No HPI HPI Comments History of Present Illness Details Patient presented to the walk-in today for sick visit Reports 6 days ago he noticed blood in his right eye, worsened over 3 or 4 days He denies any injury or trauma to the eye. Denies foreign body sensation Denies changes in his vision, discharge, pain, itching, headaches, dizziness, syncope, chest pain Patient is on Eliquis for AFib. He had cardioversion last , but reports the blood was present before the procedure. [facility] Medical History Atrial fibrillation status post cardioversion History of cardioversion Atrial fibrillation Osteoarthritis Obesity Tremor of both hands ED (erectile dysfunction) Sleep apnea Diabetes 1.5, managed as type 2 Chronic GERD Hypertension, essential Surgical History History of shoulder surgery Umbilical hernia History of colonoscopy Family History Father No problems noted. Mother No problems noted. Brother No problems noted. Brother No problems noted. Brother No problems noted. Son No problems noted. Daughter No problems noted. Social History Housing: House Are you a primary animal care service worker to a significant other at home: No Do you presently have visiting nurse or other home services: No Alcohol intake: current Alcohol intake frequency: former alcohol drinker Alcohol type: beer Comment: medicated with po oxycodone Patient Tobacco Use Status: Former Tobacco user Quit Date: 1989 Tobacco use type: Cigarette Years Smoked: 12 e-Cigarette/Vaping Use: Never Used Second Hand Smoke Exposure: No service: Yes Current occupational status: retired Cognitive needs: No Hearing needs: No Vision needs: Yes Review of Systems Const All systems reviewed & are unremarkable except as noted in HPI and below Physical Exam Vital Signs: Last Vital Signs Temp 97.9 F 12/16/23 08:19 Pulse 77 12/16/23 08:19 BP 118/70 12/16/23 08:19 Pulse Ox 98 12/16/23 08:19 Oxygen Delivery Method Room Air 12/16/23 08:19 BMI result Body Mass Index 36.4 General: awake, alert, oriented. Answers questions appropriately. Fully engaged in examination. Skin: warm, dry, intact HEENT: Normocephalic. Hearing intact. Right eye: focal, flat, red region on the ocular surface starting at inner corner extending to lateral aspect pupil border. PERRL Cardiac: External chest normal in appearance. Respiratory: No cough, audible wheezing or stridor. Abdomen: without gross distension. MS: No obvious swelling or deformities. Neurological: Oriented to person, place, time and situation. Thought process intact. Psychiatric: Appropriate mood and affect. Good judgment and insight. Assessment & Plan Assessment & Plan (1) Subconjunctival hemorrhage: Code(s): H11.30 - Conjunctival hemorrhage, unspecified eye Plan Reassurance provided, resolving 2-3 weeks without intervention Follow up with eye doctor Follow up with PCP or at the walk-in for any new worsening symptoms Coding Level of Care Code Est Pt Level 3 (57224) Diagnoses Subconjunctival hemorrhage H11.30
== END 2023-12-16 08:50 | disposition home or self-care (01) ==
PROVIDERS: PCP Internal Medicine; Visit Provider Registered Nurse Emergency
DX: H11.30 Conjunctival hemorrhage, unspecified eye (principal)
CPT/HCPCS: 99213

== ENCOUNTER 2024-01-16 09:49 | Outpatient (AMB) | payer OTHER, SELFPAY | END 2024-01-16 09:52 | disposition home or self-care (01) | LOC: HO.HCS 09:49 | PROVIDERS: PCP Internal Medicine; Visit Provider Nurse Practitioner Family | DX: R94.31 Abnormal electrocardiogram [ECG] [EKG] (principal) | CPT/HCPCS: 93010 ==

== ENCOUNTER 2024-01-16 11:18 | Day surgery (SDC) | payer OTHER, SELFPAY ==
--- NOTE | 2024-01-16 | ECG_ITS ---
Test Reason : CARDIOVERSION Blood Pressure : / mmHG Vent. Rate : 057 BPM Atrial Rate : 057 BPM P-R Int : 238 ms QRS Dur : 098 ms QT Int : 450 ms P-R-T Axes : 027 -74 -11 degrees QTc Int : 438 ms Sinus bradycardia with 1st degree A-V block Left axis deviation Low voltage QRS Inferior infarct (cited on or before 02-MAR-2022) Cannot rule out Anterior infarct (cited on or before 02-MAR-2022) Abnormal ECG When compared with ECG of 29-NOV-2022 14:09, No significant change was found Referred By: Guillermo Alcantar Electronically Signed By:Guillermo Alcantar
[2024-01-16 11:29] VITALS: BMI 36.0
--- NOTE | 2024-01-16 11:33 | MHC.SHP ---
Pre-Procedural Eval Section A - 24 Hr Update-Section A only Date of Service: 01/16/24 The patient is an INPATIENT: No The patient has been examined within 24 hours of the surgical procedure. The History & Physical has been completed within 30 days and I have reviewed it.: No Section B - Complete if H&P > 30 days Chief Complaint: afib Details of Present Illness: Here for elective cardioversion Allergies: Allergies Allergy/AdvReac Type Severity Reaction Status Date / Time No Known Allergies Allergy Verified 01/16/24 08:51 Plan Diagnosis/Plan: Unchanged I have reviewed the history and physical and performed a pertinent physical examination on my patient. No changes have occurred unless specified. Time Spent With Patient Time: Total time managing care of this patient today ____ minutes.
[2024-01-16 11:34] VITALS: BP 157/88; PULSE 63; RESP 16; TEMP 36.4; O2SAT 99
--- NOTE | 2024-01-16 11:43 | HO.ANESPROP2 ---
HPI - Anesthesia Eval Consult details Narrative: for cardioversion PMFSH Active Problems Active Problems: All Active Problems Subconjunctival hemorrhage (Acute) Lightheaded (Acute) Other persistent atrial fibrillation (Acute) Encounter for general adult medical examination with abnormal findings (Acute) Obesity due to excess calories (Acute) Possible alcohol use disorder on screening for alcoholism (Acute) Colon cancer screening (Acute) PAF (paroxysmal atrial fibrillation) (Acute) New onset atrial fibrillation (Acute) Hospital discharge follow-up (Acute) Right shoulder strain (Acute) Osteoarthritis of right shoulder (Acute) Calcific tendinitis of right shoulder (Acute) CLAUDETTE (obstructive sleep apnea) (Acute) Preoperative cardiovascular examination (Acute) Persistent atrial fibrillation (Acute) Biceps tendonitis on right (Acute) Obesity (Acute) Sleep apnea (Acute) Diabetes 1.5, managed as type 2 (Acute) Chronic GERD (Acute) Hypertension, essential (Acute) Past Medical History Medical History Atrial fibrillation status post cardioversion History of cardioversion Atrial fibrillation Osteoarthritis Obesity Tremor of both hands ED (erectile dysfunction) Sleep apnea Diabetes 1.5, managed as type 2 Chronic GERD Hypertension, essential Family History Family History Father No problems noted. Mother No problems noted. Brother No problems noted. Brother No problems noted. Brother No problems noted. Son No problems noted. Daughter No problems noted. Family history of problems with anesthesia: No Surgical History Surgical History History of shoulder surgery Umbilical hernia History of colonoscopy History of Problems with Anesthesia: No Social History Social History Housing: House Are you a primary spiritual care coordinator to a significant other at home: No Do you presently have visiting nurse or other home services: No Alcohol intake: current Alcohol intake frequency: former alcohol drinker Alcohol type: beer Comment: medicated with po oxycodone Patient Tobacco Use Status: Former Tobacco user Quit Date: 1989 Tobacco use type: Cigarette Years Smoked: 12 e-Cigarette/Vaping Use: Never Used Second Hand Smoke Exposure: No Use of substances other than those prescribed or required for medical reasons: No Are you DNR?: No Advance Directives: No Advance Directives Information Provided: Yes service: Yes Current occupational status: retired Cognitive needs: No Hearing needs: No Vision needs: Yes Meds Allergies Allergy/AdvReac Type Severity Reaction Status Date / Time No Known Allergies Allergy Verified 01/16/24 08:51 Home Medications ?Medication ?Instructions ?Recorded ?Confirmed ?Last Taken ?Type CPAP 10/12/22 10/23/23 Unknown History amiodarone 400 mg tablet 400 mg PO BID 11/25/23 11/25/23 01/16/24 History Exam Height,Weight and Vital Signs: Height 5 ft 11 in Weight 117.027 kg Last Vital Signs Temp 97.5 F 01/16/24 11:34 Pulse 63 01/16/24 11:34 Resp 16 01/16/24 11:34 BP 157/88 H 01/16/24 11:34 Pulse Ox 99 01/16/24 11:34 O2 Del Method Room Air 01/16/24 11:34 Airway Mallampati Class: II TM Dist: >3cm Neck ROM: Full Heart: rrr Lungs: cta Assessment and Plan Assessment Anesthesia Assessment: Anesthesia Plan Discussed and Chart Reviewed Final Anesthetic Review Family History of Problems with Anesthesia: No History of Problems with Anesthesia: No NPO: Yes ASA Class: III Final Preanesthetic Review: No Changes in Pt Med Stat, Meds/Allgs Chart Reviewed, Consent Obtained/Reviewed and Anes Risks/Benef Reviewed Patient Risk: Intermediate Procedure Risk: Low Anesthetic Plan Anesthetic Plan: MAC: Disposition: Standard PACU
[2024-01-16 11:50] LABS: Glucose, Whole Blood 149 mg/dL (60-115)
--- NOTE | 2024-01-16 12:06 | HO.CARDIVERS ---
Cardioversion Procedure Note Cardioversion Date of Procedure: 01/16/24 Ordering Provider: Brayan Gaines MD Performing Provider: Guillermo Alcantar MD Indication for Procedure: Afib. Performed with Transesophageal Echo: No Consent: Verbal and Written consent was obtained from the patient before starting. The patient was made aware of the risk of stroke, skin taylor, arrhythmia and failure to achieve sinus rhythm Procedure: After consent obtained, defib pads were attached and the patient was sedated by the anesthesia team. Once adequate sedation achieved, single synchronized shock of 200 J was given to the patient. He converted to sinus rhythm. Complications: None Recommendations: c/w amiodarone and Eliquis.
[2024-01-16 12:08] VITALS: BP 146/83; PULSE 57; RESP 15; TEMP 36.6; O2SAT 99
[2024-01-16 12:23] VITALS: BP 131/75; PULSE 57; RESP 14; TEMP 36.6; O2SAT 99
== END 2024-01-16 13:02 | disposition home or self-care (01) ==
PROVIDERS: PCP Internal Medicine; Visit Provider Internal Medicine Cardiovascular Disease
PROC: 5A2204Z Restoration of Cardiac Rhythm, Single (ICD-10-PCS; principal; 2024-01-16 12:30)
DX: I48.91 Unspecified atrial fibrillation (principal); I44.0 Atrioventricular block, first degree; R00.1 Bradycardia, unspecified; E13.9 Other specified diabetes mellitus without complications; K21.9 Gastro-esophageal reflux disease without esophagitis; Z79.01 Long term (current) use of anticoagulants; Z79.899 Other long term (current) drug therapy; Z79.84 Long term (current) use of oral hypoglycemic drugs
CPT/HCPCS: 82947; 92960; 93005; J0461; J1596; J2704

== ENCOUNTER → 2024-01-16 11:18 | Outpatient (BNV) | payer OTHER, SELFPAY | PROVIDERS: PCP Internal Medicine; Visit Provider Internal Medicine Cardiovascular Disease | DX: I48.0 Paroxysmal atrial fibrillation (principal) | CPT/HCPCS: 92960 ==

== ENCOUNTER 2024-02-24 07:20 | Outpatient (REF) | payer OTHER, SELFPAY ==
[2024-02-24 11:41] LABS: MANUAL DIFF FLAG NO
[2024-02-24 11:54] LABS: Basophils Percent Auto 0.4 % (0-2); Eosinophils Absolute Auto 0.2 X10*3/uL (0.0-0.4); Eosinophils Percent Auto 2.6 % (0-4); Hematocrit 47.5 % (42.0-52.0); Imm Gran Abs Auto 0.04 X10*3/uL (0.00-0.03); Imm Gran Pct Auto 0.5 % (0.0-0.4); Lymphocytes Absolute Auto 1.3 X10*3/uL (1.2-4.9); Lymphocytes Percent Auto 17.3 % (20-40); Mean Corpuscular HGB Conc 33.7 g/dl (31.0-36.0); Mean Corpuscular Hemoglobin 29.5 pg (27.0-33.0); Mean Corpuscular Volume 87.5 fL (80.0-98.0); Mean Platelet Volume 11.1 fL (9.4-12.4); Monocytes Absolute Auto 0.5 X10*3/uL (0.1-1.2); Monocytes Percent Auto 7.1 % (2-11); Neutrophils Absolute Auto 5.3 x10*3/uL (2.0-8.3); Neutrophils Percent Auto 72.1 % (45-73); Platelet Count 205 X10*3/uL (160-400); Red Blood Count 5.43 X10*6/uL (4.60-5.80); Red Cell Distribution Width 13.2 % (11.0-16.0); White Blood Count 7.3 X10*3/uL (4.8-10.8)
[2024-02-24 12:10] LABS: Estimated Average Glucose 123 mg/dL; Hemoglobin A1c % 5.9 % (<6.0)
[2024-02-24 12:33] LABS: Alanine Aminotransferase 30 U/L (0-40); Albumin Level 4.1 g/dL (3.5-5.0); Alkaline Phosphatase 42 U/L (39-117); Anion Gap 12 (12-20); Aspartate Amino Transferase 22 U/L (5-37); Bilirubin Total 0.9 mg/dL (0.0-1.0); Blood Urea Nitrogen 10 mg/dL (9-16); Calcium 10.1 mg/dL (8.4-10.2); Carbon Dioxide 31 mmol/L (22-29); Chloride 103 mmol/L (96-108); Estimated Glomerular Filt Rate > 60; Glucose Random 140 mg/dL (60-115); Potassium 4.5 mmol/L (3.3-5.1); Sodium 141 mmol/L (135-145); Total Protein 6.8 g/dL (6.5-8.0)
[2024-02-24 12:49] LABS: Creatinine Urine 220.26 mg/dL; Microalbum/Creatinine Ratio Ur 9.5 ug/mg cr (<30)
[2024-02-25 22:53] LABS: LDL Cholesterol Direct 145 mg/dL (<100)
== END 2024-02-24 07:21 | disposition home or self-care (01) ==
LOC: HO.HMGCLDS 07:20
PROVIDERS: PCP Internal Medicine; Visit Provider Internal Medicine
DX: E13.9 Other specified diabetes mellitus without complications (principal); I10 Essential (primary) hypertension; K21.9 Gastro-esophageal reflux disease without esophagitis; G47.33 Obstructive sleep apnea (adult) (pediatric); E66.09 Other obesity due to excess calories; I48.19 Other persistent atrial fibrillation
CPT/HCPCS: 36415; 80053; 82043; 82570; 83036; 83721; 85025

== ENCOUNTER 2024-02-28 10:24 | Outpatient (AMB) | payer OTHER, SELFPAY ==
--- NOTE | 2024-02-28 10:26 | A.OFFPC_ITS ---
Vital Signs 02/28/24 10:30 Height 5 ft 11 in Weight 257 lb BMI 35.8 BP 118/76 Blood Pressure Location Rt brachial Position Sitting Pulse 70 Pulse Source Pulse Oximeter Pulse Oximetry (%) 100 Oxygen Delivery Method Room Air Intake Visit Reasons: PE Allergies No Known Allergies Allergy (Verified 02/28/24 10:30) Medication List - Last Reconciled 02/28/24 by Kristine Perez MD amiodarone 400 mg PO .once daily amlodipine 5 mg PO BEDTIME apixaban (Eliquis) 5 mg PO BID 90 days CPAP As directed glipizide-metformin 2.5-500 mg Two tablets in the morning and 1 at night 12 hours apart 90 days hydrochlorothiazide 25 mg PO QAM losartan 50 mg PO DAILY omeprazole 20 mg PO DAILY 90 days Tobacco use date assessed: 02/28/24 Dental Screening Dental Screen Date: 10/23/23 HPI PE HPI Details Patient is 63-year-old came today for physical exam He is regular heart rhythm patient have history of cardio version 3 times And ablation procedure once, he is also amiodarone at moment He has developed mild cellulitis left inner thigh which is causing pain On examination he has skin tag which is excoriated and have surrounding erythema I have sent for the patient Labs done recently reviewed Hemoglobin A1c came 5.9 LDL 145 No changes made to his medications today He will return in 4 months for follow-up and labs are needed before visit. BMI is elevated patient has modified his diet and is exercising regularly now. Colonoscopy up-to-date [facility] Medical History Atrial fibrillation status post cardioversion History of cardioversion Atrial fibrillation Osteoarthritis Obesity Tremor of both hands ED (erectile dysfunction) Sleep apnea Diabetes 1.5, managed as type 2 Chronic GERD Hypertension, essential Surgical History History of shoulder surgery Umbilical hernia History of colonoscopy Family History Father No problems noted. Mother No problems noted. Brother No problems noted. Brother No problems noted. Brother No problems noted. Son No problems noted. Daughter No problems noted. Social History Housing: House Are you a primary home care companion to a significant other at home: No Do you presently have visiting nurse or other home services: No Alcohol intake: current Alcohol intake frequency: former alcohol drinker Alcohol type: beer Comment: medicated with po oxycodone Patient Tobacco Use Status: Former Tobacco user Tobacco use type: Cigarette Years Smoked: 12 e-Cigarette/Vaping Use: Never Used Second Hand Smoke Exposure: No service: Yes Current occupational status: retired Cognitive needs: No Hearing needs: No Vision needs: Yes Questionnaire Thrive Questionnaire Date Thrive assessed: 10/18/23 RUSTAM-7 AMB Questionnaire RUSTAM-7 Date RUSTAM - 7 assessed: 10/18/23 Source: Developed by Drs. Kiko Brasher, Jessie Iniguez, Julio Almazan and colleagues, with an educational lorenzo from [employer]. Review of Systems Const Denies chills, Denies fever(s) and Denies headache(s) Eyes Denies blurry vision ENT Denies headache(s), Denies nasal discharge, Denies nasal obstruction, Denies odynophagia and Denies sinus pain Card Denies chest pain at rest and Denies chest pain with activity Resp Denies cough and Denies hemoptysis GI Denies diarrhea, Denies odynophagia, Denies vomiting and Denies hematemesis Reports as per HPI Musc Denies abnormal gait Skin/Breast Reports as per HPI Neuro Denies Neuro-related abnormal movements, Denies Abnormal speech present, Denies abnormal gait, Denies headache(s) and Denies Sensory deficit (Neuro) Psych Denies mood swings and Denies paranoia Endo Reports as per HPI Thanh/Lymph Reports as per HPI Aller/Immun Reports as per HPI Physical exam (Primary Care) Vital Signs: Last Vital Signs Pulse 70 02/28/24 10:30 BP 118/76 02/28/24 10:30 Pulse Ox 100 02/28/24 10:30 Oxygen Delivery Method Room Air 02/28/24 10:30 BMI result Body Mass Index 35.8 Tobacco/Smoking Status: Tobacco use Status Tobacco use date assessed 02/28/24 02/28/24 10:33 Patient Tobacco Use Status Former Tobacco user 02/28/24 10:27 Tobacco use type Cigarette 02/28/24 10:27 e-Cigarette/Vaping Use Never Used 02/28/24 10:27 Thrive Assessment: Date of Thrive Assessment Date Thrive assessed 10/18/23 02/28/24 10:27 Const General: cooperative, comfortable and no acute distress Orientation/consciousness: patient oriented x3 HENMT Head: Yes normocephalic and Yes atraumatic Eyes General: appearance normal, both eyes and all related structures Pupils: Equal, round and reactive pupils present EOM: EOMs intact bilaterally Neck Neck: Yes supple and No lymphadenopathy Thyroid: Thyroid normal Lymphatic: no lymphadenopathy noted Resp Effort & Inspection: normal respiratory effort and able to speak in complete sentences Auscultation: clear to auscultation bilaterally Cardio Heart sounds: S1 normal heart sound present and S2 normal heart sound present GI Palpation (GI): Soft to palpation and nontender Auscultation: normal bowel sounds General: Yes no CVA tenderness Back/Spine/Pelvis Back: no CVA tenderness Skin General skin exam: elasticity normal and turgor normal Neuro General: patient oriented x3 and gait normal Cranial nerves: Yes Equal, round and reactive pupils present Speech: No Abnormal speech present Sensory Exam: No Sensory deficit (Neuro) Coordination: tandem gait normal and Romberg test negative Extrem General: Yes normal exam except as noted and No edema Assessment and Plan Assessment & Plan (1) Encounter for general adult medical examination with abnormal findings: Code(s): Z00.01 - Encounter for general adult medical examination with abnormal findings (2) Hypertension, essential: Code(s): I10 - Essential (primary) hypertension (3) Cellulitis: Code(s): L03.90 - Cellulitis, unspecified Qualifiers: Site of cellulitis: extremity Site of cellulitis of extremity: upper extremity Laterality: left Qualified Code(s): L03.114 - Cellulitis of left upper limb (4) Diabetes 1.5, managed as type 2: Comment: does not check glucose at home-taking glipizide-metformin combo. once/day Code(s): E13.9 - Other specified diabetes mellitus without complications (5) Chronic GERD: Code(s): K21.9 - Gastro-esophageal reflux disease without esophagitis (6) CLAUDETTE (obstructive sleep apnea): Comment: Severe degree of sleep apnea. The AHI was 46/hr and supine AHI was 56/hr and oxygen guera was 80% Code(s): G47.33 - Obstructive sleep apnea (adult) (pediatric) (7) Persistent atrial fibrillation: Code(s): I48.19 - Other persistent atrial fibrillation (8) Obesity due to excess calories: Code(s): E66.09 - Other obesity due to excess calories Qualifiers: Body mass index: BMI 35.0-35.9 Obesity classification: adult class 2 (BMI 35 - 39.9) Serious obesity comorbidity presence: with serious comorbidity Qualified Code(s): E66.01 - Morbid (severe) obesity due to excess calories; Z68.35 - Body mass index [BMI] 35.0-35.9, adult Plan Patient is 63-year-old came today for physical exam He is regular heart rhythm patient have history of cardio version 3 times And ablation procedure once, he is also amiodarone at moment He has developed mild cellulitis left inner thigh which is causing pain On examination he has skin tag which is excoriated and have surrounding erythema I have sent for the patient Labs done recently reviewed Hemoglobin A1c came 5.9 LDL 145 No changes made to his medications today He will return in 4 months for follow-up and labs are needed before visit. BMI is elevated patient has modified his diet and is exercising regularly now. Colonoscopy up-to-date Orders: Orders Hemoglobin A1c 4 Months E13.9 - Other specified diabetes mellitus without complications, E66.01 - Morbid (severe) obesity due to excess calories, G47.33 - Obstructive sleep apnea (adult) (pediatric), I10 - Essential (primary) hypertension, I48.19 - Other persistent atrial fibrillation, K21.9 - Gastro- esophageal reflux disease without esophagitis, Z68.35 - Body mass index [BMI] 35.0-35.9, adult Lipid Panel 4 Months E13.9 - Other specified diabetes mellitus without complications, E66.01 - Morbid (severe) obesity due to excess calories, G47.33 - Obstructive sleep apnea (adult) (pediatric), I10 - Essential (primary) hypertension, I48.19 - Other persistent atrial fibrillation, K21.9 - Gastro- esophageal reflux disease without esophagitis, Z68.35 - Body mass index [BMI] 35.0-35.9, adult Microalbumin, Random (w Creat) 4 Months E13.9 - Other specified diabetes mellitus without complications, E66.01 - Morbid (severe) obesity due to excess calories, G47.33 - Obstructive sleep apnea (adult) (pediatric), I10 - Essential (primary) hypertension, I48.19 - Other persistent atrial fibrillation, K21.9 - Gastro-esophageal reflux disease without esophagitis, Z68.35 - Body mass index [BMI] 35.0-35.9, adult Complete Blood Count Auto Diff 4 Months E13.9 - Other specified diabetes mellitus without complications, E66.01 - Morbid (severe) obesity due to excess calories, G47.33 - Obstructive sleep apnea (adult) (pediatric), I10 - Essential (primary) hypertension, I48.19 - Other persistent atrial fibrillation, K21.9 - Gastro-esophageal reflux disease without esophagitis, Z68.35 - Body mass index [BMI] 35.0-35.9, adult Comprehensive [place]. Panel Fast 4 Months E13.9 - Other specified diabetes mellitus without complications, E66.01 - Morbid (severe) obesity due to excess calories, G47.33 - Obstructive sleep apnea (adult) (pediatric), I10 - Essential (primary) hypertension, I48.19 - Other persistent atrial fibrillation, K21.9 - Gastro-esophageal reflux disease without esophagitis, Z68.35 - Body mass index [BMI] 35.0-35.9, adult Medications: New amoxicillin-pot clavulanate 500-125 mg (Augmentin) 1 tab PO BID 10 tabs 0RF 5 days Coding Level of Care Code Est Pt Level 3 (08057) Est Pt Prev Care 40-64y(06449) Diagnoses Encounter for general adult medical examination with abnormal findings Z00.01 Hypertension, essential I10 Cellulitis of left upper extremity L03.114 Site of cellulitis: extremity Site of cellulitis of extremity: upper extremity Laterality: left Diabetes 1.5, managed as type 2 E13.9 Chronic GERD K21.9 CLAUDETTE (obstructive sleep apnea) G47.33 Persistent atrial fibrillation I48.19 Class 2 severe obesity due to excess calories with serious comorbidity and body mass index (BMI) of 35.0 to 35.9 in adult E66.01; Z68.35 Body mass index: BMI 35.0-35.9 Obesity classification: adult class 2 (BMI 35 - 39.9) Serious obesity comorbidity presence: with serious comorbidity
[2024-02-28 10:30] VITALS: BP 118/76; PULSE 70; O2SAT 100; BMI 35.8
== END 2024-02-28 10:57 | disposition home or self-care (01) ==
PROVIDERS: PCP Internal Medicine; Visit Provider Internal Medicine
DX: Z00.01 Encounter for general adult medical examination with abnormal findings (principal); E13.9 Other specified diabetes mellitus without complications; E66.01 Morbid (severe) obesity due to excess calories; Z68.35 Body mass index [BMI] 35.0-35.9, adult; I48.19 Other persistent atrial fibrillation; I10 Essential (primary) hypertension; L03.114 Cellulitis of left upper limb; K21.9 Gastro-esophageal reflux disease without esophagitis; G47.33 Obstructive sleep apnea (adult) (pediatric)
CPT/HCPCS: 99213; 99396

== ENCOUNTER 2024-03-10 08:20 | Outpatient (AMB) | payer OTHER, SELFPAY ==
[2024-03-10 08:30] VITALS: BP 120/72; PULSE 66; BMI 35.2
--- NOTE | 2024-03-10 08:30 | A.OFFVIS_ITS ---
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 Required: No Allergies No Known Allergies Allergy (Verified 03/10/24 08:33) Medication List - Last Reconciled 03/10/24 by Selina Sotelo NP-C amiodarone 400 mg PO .once daily amlodipine 5 mg PO BEDTIME apixaban (Eliquis) 5 mg PO BID 90 days CPAP As directed glipizide-metformin 2.5-500 mg Two tablets in the morning and 1 at night 12 hours apart 90 days hydrochlorothiazide 25 mg PO QAM losartan 50 mg PO DAILY omeprazole 20 mg PO DAILY 90 days HPI HPI 1 m follow up: Details: Nolan is a 63-year-old male with past medical history of hypertension, diabetes, sleep apnea, obesity, persistent atrial fibrillation who recently underwent an atrial fibrillation ablation followed by recurrent AFib and cardioversion. He now presents for follow-up. Today he reports he has been feeling well since his last cardioversion. He has not noticed any recurrent atrial fibrillation since that time. When he has AFib he notices heart palpitations and some shortness of breath. He denies any chest discomfort at rest or with activity. No shortness of breath, PND, orthopnea or edema. No lightheadedness, presyncope, syncope, falls. He has been walking daily and working on weight loss. Overall he feels great. Has no bleeding issues with use of Eliquis. He has a follow-up with electrophysiology in April. He is compliant with his CPAP mask. PENDING SALE TO [facility] Medical History Atrial fibrillation status post cardioversion History of cardioversion Atrial fibrillation Osteoarthritis Obesity Tremor of both hands ED (erectile dysfunction) Sleep apnea Diabetes 1.5, managed as type 2 Chronic GERD Hypertension, essential Surgical History History of shoulder surgery Umbilical hernia History of colonoscopy Family History Father No problems noted. Mother No problems noted. Brother No problems noted. Brother No problems noted. Brother No problems noted. Son No problems noted. Daughter No problems noted. Social History Housing: House Are you a primary care attendant to a significant other at home: No Do you presently have visiting nurse or other home services: No Alcohol intake: current Alcohol intake frequency: former alcohol drinker Alcohol type: beer Comment: medicated with po oxycodone Patient Tobacco Use Status: Former Tobacco user Tobacco use type: Cigarette Years Smoked: 12 e-Cigarette/Vaping Use: Never Used Second Hand Smoke Exposure: No service: Yes Current occupational status: retired Cognitive needs: No Hearing needs: No Vision needs: Yes Review of Systems Const All systems reviewed & are unremarkable except as noted in HPI and below ENT Denies dizziness Card Denies chest pain, Denies chest pain at rest, Denies chest pain with activity, Denies rapid heart rate, Denies pedal edema, Denies edema, Denies leg edema, Denies lightheadedness, Denies palpitations, Denies dyspnea, Denies dyspnea on exertion and Denies orthopnea Resp Denies cough, Denies dyspnea and Denies dyspnea on exertion GI Denies hematochezia and Denies change in stool character Musc Denies abnormal gait, Denies limited range of motion, Denies muscle cramps, Denies muscle weakness, Denies numbness, Denies radiating pain into limb, Denies stiffness and Denies tingling Neuro Denies abnormal gait, Denies dizziness, Denies numbness and Denies tingling Endo Denies palpitations Physical Exam Vital Signs: Last Vital Signs Pulse 66 03/10/24 08:30 BP 120/72 03/10/24 08:30 BMI result Body Mass Index 35.2 Const General: cooperative, healthy appearing, comfortable and no acute distress Orientation/consciousness: patient oriented x3 Neck Neck: Yes normal visual inspection and Yes no JVD Resp Effort & Inspection: normal respiratory effort Auscultation: clear to auscultation bilaterally, no crackles, no rales, no rhonchi and no wheezes Cardio Jugular venous distension: no JVD Rate: regular rate Rhythm: regular rhythm Heart sounds: S1 normal heart sound present, S2 normal heart sound present, no murmurs and no rubs Neuro General: patient oriented x3 Extrem General: Yes normal to inspection and No no pedal edema Psych Appearance: grossly normal Mental Status: mental status grossly normal Speech and movement: Normal speech and movement present Office Procedures EKG Details: Today, read by me, normal sinus rhythm, left axis deviation, inferior infarct, age undetermined, possible anterior infarct, rate 66, QTC 442 millisecond [id number], Complete Assessment & Plan Assessment & Plan (1) Persistent atrial fibrillation: Code(s): I48.19 - Other persistent atrial fibrillation Category: Medical Plan: Initial finding of atrial fibrillation 03/02/2022 when he came for colonoscopy. Echocardiogram done 03/08/2022 showed EF 60-65%, mildly dilated left atrium, normal valves. Since that time he has undergone 2 cardioversions with recurrent atrial fibrillation. The 2nd cardioversion was done on flecainide. Amiodarone was not used due to his age. Multaq was ordered however he could not afford the co-pay. On visit in February 2023 it was determined that he would be treated with rate control due to persistence of AFib. On last follow-up visit he reported that he just did not feel as well as he use do. He was referred to electrophysiology for ablation. He was put on amiodarone and underwent atrial fibrillation on 12/12/[address] Gaines. On follow-up to his office he was in atrial fibrillation. He underwent a 3rd cardioversion with Dr. Alcantar on 01/16/2024 and clinically has remained in sinus rhythm since that time. EKG done today is showing normal sinus rhythm, rate 66, QTC 442 milliseconds. Today he reports that he has been feeling very good recently. He now notices that his breathing and activity tolerance has improved since he has been in normal rhythm. He is walking daily for exercise. He continues on amiodarone 200 mg daily and Eliquis for anticoagulation. No bleeding issues reported. He has a lab slip for blood work to be done in March for Dr. Gaines. His next EP appointment is in April. He anticipates coming off amiodarone in the near future. No medication changes made today. Instructed to notify this office or Dr. Gaines if he notices any recurrent atrial fibrillation. Continue with activity as tolerated. Cardiology follow-up here in 6 months, sooner if needed. (2) Sleep apnea: Comment: cpap Code(s): G47.30 - Sleep apnea, unspecified Category: Medical Plan: Compliant with CPAP. Follows with Sleep Medicine (3) Hypertension, essential: Code(s): I10 - Essential (primary) hypertension Category: Medical Plan: Well controlled at this time. No med changes made Plan Time spent on chart review, documentation, interview and assessment Coding Level of Care Code Est Pt Level 4 (23544) Diagnoses Persistent atrial fibrillation I48.19 Sleep apnea G47.30 Hypertension, essential I10 CPT Codes EKG - CPT: [id number], Complete ([id number]) Time Spent (min) 30
== END 2024-03-10 08:58 | disposition home or self-care (01) ==
PROVIDERS: PCP Internal Medicine; Visit Provider Nurse Practitioner Family
DX: I48.19 Other persistent atrial fibrillation (principal); G47.30 Sleep apnea, unspecified; I10 Essential (primary) hypertension
CPT/HCPCS: 93010; 99214

== ENCOUNTER → 2024-03-10 08:20 | Outpatient (BNVA) | payer OTHER, SELFPAY | PROVIDERS: PCP Internal Medicine; Visit Provider Nurse Practitioner Family | DX: I48.19 Other persistent atrial fibrillation (principal); I10 Essential (primary) hypertension; G47.30 Sleep apnea, unspecified; Z79.01 Long term (current) use of anticoagulants; Z79.899 Other long term (current) drug therapy | CPT/HCPCS: 93005 ==

== ENCOUNTER 2024-04-28 07:44 | Outpatient (REF) | payer OTHER, SELFPAY ==
[2024-04-28 10:19] LABS: Hematocrit 46.3 % (42.0-52.0); Mean Corpuscular HGB Conc 34.6 g/dl (31.0-36.0); Mean Corpuscular Hemoglobin 30.3 pg (27.0-33.0); Mean Corpuscular Volume 87.7 fL (80.0-98.0); Platelet Count 215 X10*3/uL (160-400); Red Blood Count 5.28 X10*6/uL (4.60-5.80); Red Cell Distribution Width 12.8 % (11.0-16.0); White Blood Count 6.5 X10*3/uL (4.8-10.8)
[2024-04-28 10:27] LABS: Alanine Aminotransferase 24 U/L (0-40); Albumin Level 4.1 g/dL (3.5-5.0); Alkaline Phosphatase 38 U/L (39-117); Anion Gap 14 (12-20); Aspartate Amino Transferase 18 U/L (5-37); Bilirubin Total 1.1 mg/dL (0.0-1.0); Blood Urea Nitrogen 14 mg/dL (9-16); Calcium 9.8 mg/dL (8.4-10.2); Carbon Dioxide 28 mmol/L (22-29); Chloride 103 mmol/L (96-108); Estimated Glomerular Filt Rate > 60; Glucose Random 168 mg/dL (60-115); Potassium 4.7 mmol/L (3.3-5.1); Sodium 140 mmol/L (135-145); Total Protein 6.5 g/dL (6.5-8.0)
[2024-04-28 10:47] LABS: Thyroid Stimulating Hormone 3.16 uIU/mL (0.32-4.0)
== END 2024-04-28 07:45 | disposition home or self-care (01) ==
LOC: HO.HMGCLDS 07:44
PROVIDERS: PCP Internal Medicine; Visit Provider Internal Medicine Cardiovascular Disease
DX: I48.19 Other persistent atrial fibrillation (principal); I10 Essential (primary) hypertension
CPT/HCPCS: 36415; 80053; 84443; 85027

== ENCOUNTER 2024-05-19 13:27 | Outpatient (AMB) | payer OTHER, SELFPAY ==
--- NOTE | 2024-05-19 13:42 | MHC.OFFVIS ---
Vital Signs 05/19/24 13:44 Height 5 ft 11 in Weight 251 lb BMI 35.0 Intake Visit Reasons: 6 mo for Sleep Intake Note: Patient presents for 6 month follow up. Allergies No Known Allergies Allergy (Verified 05/19/24 13:45) HPI Comments Details: 63-yr-old female presents for follow-up visit of sleep apnea. Pt denies any significant interval medical history changes. Pt reports he is using his CPAP regularly. His current PAP compliance report shows good reduction in residual AHI of both central and obstructive apneas. Previously, pt did have higher residual CSA than CLAUDETTE. Pt has started using a new PAP mask which he tolerates better. He stopped drinking alcohol a year ago. He is walking every day at 6am, and sometimes in the afternoon as well. He now plans to optimize his diet to promote weight loss. 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 Compliance Report Usage 04/19/2024 - 05/18/2024 Usage days 30/30 days (100%) >= 4 hours 30 days (100%) < 4 hours 0 days (0%) Usage hours 243 hours 11 minutes Average usage (total days) 8 hours 6 minutes Average usage (days used) 8 hours 6 minutes Median usage (days used) 8 hours 8 minutes Total used hours (value since last reset - 05/18/2024) 4,936 hours AirSense 11 AutoSet Serial number [id number] Mode CPAP Set pressure 12 cmH2O EPR Fulltime EPR level 2 Therapy Leaks - L/min Median: 5.1 95th percentile: 39.3 Maximum: 53.9 Events per hour AI: 2.2 HI: 0.4 AHI: 2.6 Apnea Index Central: 0.9 Obstructive: 0.7 Unknown: 0.5 RERA Index 0.1 PFSH Medical History Atrial fibrillation status post cardioversion History of cardioversion Atrial fibrillation Osteoarthritis Obesity Tremor of both hands ED (erectile dysfunction) Sleep apnea Diabetes 1.5, managed as type 2 Chronic GERD Hypertension, essential Surgical History (Updated 05/19/24 @ 13:46 by TANNER Cruz) H/O cardiac radiofrequency ablation History of shoulder surgery Umbilical hernia History of colonoscopy Family History Father No problems noted. Mother No problems noted. Brother No problems noted. Brother No problems noted. Brother No problems noted. Son No problems noted. Daughter No problems noted. Social History Housing: House Are you a primary hospice care sales consultant to a significant other at home: No Do you presently have visiting nurse or other home services: No Alcohol intake: current Alcohol intake frequency: former alcohol drinker Alcohol type: beer Comment: medicated with po oxycodone Patient Tobacco Use Status: Former Tobacco user Tobacco use type: Cigarette Years Smoked: 12 e-Cigarette/Vaping Use: Never Used Second Hand Smoke Exposure: No service: Yes Current occupational status: retired Cognitive needs: No Hearing needs: No Vision needs: Yes Review of Systems Const All systems reviewed & are unremarkable except as noted in HPI and below Physical Exam Vital Signs: BMI result Body Mass Index 35.0 Const General: no acute distress Orientation/consciousness: patient oriented x3 HEENT Other: Mallampati stage Resp Effort & Inspection: normal respiratory effort and able to speak in complete sentences Auscultation: clear to auscultation bilaterally Cardio Rate: regular rate Rhythm: regular rhythm Neuro General: patient oriented x3 Psych Mental Status: mental status grossly normal Speech and movement: Clear speech present Attitude: cooperative Results Reviewed Results Reviewed: PAP compliance report- see HPI Assessment & Plan Assessment & Plan (1) CLAUDETTE (obstructive sleep apnea): Comment: Severe degree of sleep apnea. The AHI was 46/hr and supine AHI was 56/hr and oxygen guera was 80% Code(s): G47.33 - Obstructive sleep apnea (adult) (pediatric) Category: Medical Plan Continue CPAP 12 cmH2O nightly > 4 hours, as pt continues to have good clinical effect from use w/ good reduction in residual central and obstructive AHIs. Discussed previously seen elevated CSA may have been r/t adjusting to PAP tx, underlying cardiac d/o's, and/or previous alcohol use. Recognized pt's commitment to scheduled exercise. Encouraged pt to optimize healthy diet choices. Clean CPAP machine and supplies routinely. Change CPAP supplies routinely. Pt to contact us or respiratory company with any questions or concerns. Pt to follow-up in 12 months or sooner prn. Coding Level of Care Code Est Pt Level 3 (10787) Diagnoses CLAUDETTE (obstructive sleep apnea) G47.33
[2024-05-19 13:44] VITALS: BMI 35.0
== END 2024-05-19 14:40 | disposition home or self-care (01) ==
LOC: HO.HSMS 13:27
PROVIDERS: PCP Internal Medicine; Visit Provider Nurse Practitioner Family
DX: G47.33 Obstructive sleep apnea (adult) (pediatric) (principal)
CPT/HCPCS: 99213

== ENCOUNTER → 2024-05-19 13:27 | Outpatient (BNVA) | payer OTHER, SELFPAY | PROVIDERS: PCP Internal Medicine; Visit Provider Nurse Practitioner Family ==

== ENCOUNTER 2024-06-26 07:53 | Outpatient (REF) | payer OTHER, SELFPAY ==
[2024-06-26 10:24] LABS: MANUAL DIFF FLAG NO
[2024-06-26 10:40] LABS: Basophils Percent Auto 0.5 % (0-2); Eosinophils Absolute Auto 0.1 X10*3/uL (0.0-0.4); Eosinophils Percent Auto 2.2 % (0-4); Hematocrit 45.4 % (42.0-52.0); Hemoglobin 15.6 g/dl (14.0-18.0); Imm Gran Abs Auto 0.02 X10*3/uL (0.00-0.03); Imm Gran Pct Auto 0.3 % (0.0-0.4); Lymphocytes Absolute Auto 1.3 X10*3/uL (1.2-4.9); Lymphocytes Percent Auto 20.3 % (20-40); Mean Corpuscular HGB Conc 34.4 g/dl (31.0-36.0); Mean Corpuscular Hemoglobin 29.8 pg (27.0-33.0); Mean Corpuscular Volume 86.6 fL (80.0-98.0); Mean Platelet Volume 11.1 fL (9.4-12.4); Monocytes Absolute Auto 0.4 X10*3/uL (0.1-1.2); Monocytes Percent Auto 6.7 % (2-11); Neutrophils Absolute Auto 4.4 x10*3/uL (2.0-8.3); Platelet Count 208 X10*3/uL (160-400); Red Blood Count 5.24 X10*6/uL (4.60-5.80); Red Cell Distribution Width 12.6 % (11.0-16.0); White Blood Count 6.3 X10*3/uL (4.8-10.8)
[2024-06-26 11:04] LABS: Estimated Average Glucose 111 mg/dL; Hemoglobin A1C 147.9142 umol/L; Hemoglobin A1c % 5.5 % (<6.0); Total Hemoglobin (HGBA1C) 4024.9449 umol/L
[2024-06-26 11:51] LABS: Alanine Aminotransferase 27 U/L (0-40); Alkaline Phosphatase 34 U/L (39-117); Anion Gap 12 (12-20); Aspartate Amino Transferase 23 U/L (5-37); Bilirubin Total 1.1 mg/dL (0.0-1.0); Blood Urea Nitrogen 15 mg/dL (9-16); Carbon Dioxide 29 mmol/L (22-29); Chloride 104 mmol/L (96-108); Cholesterol 170 mg/dL (<200); Estimated Glomerular Filt Rate > 60; Glucose Fasting 101 mg/dL (60-99); HDL Cholesterol 52 mg/dL (>40); LDL Cholesterol Calculated 100 mg/dL (<100); Potassium 3.9 mmol/L (3.3-5.1); Sodium 141 mmol/L (135-145); Total Protein 6.3 g/dL (6.5-8.0); Triglycerides 94 mg/dL (<150)
[2024-06-26 12:04] LABS: Creatinine Urine 74.09 mg/dL; Microalbum/Creatinine Ratio Ur 9.4 ug/mg cr (<30)
== END 2024-06-26 07:54 | disposition home or self-care (01) ==
LOC: HO.HMGCLDS 07:53
PROVIDERS: PCP Internal Medicine; Visit Provider Internal Medicine
DX: I10 Essential (primary) hypertension (principal); E13.9 Other specified diabetes mellitus without complications; K21.9 Gastro-esophageal reflux disease without esophagitis; G47.33 Obstructive sleep apnea (adult) (pediatric); I48.19 Other persistent atrial fibrillation; E66.01 Morbid (severe) obesity due to excess calories; Z68.35 Body mass index [BMI] 35.0-35.9, adult
CPT/HCPCS: 36415; 80053; 80061; 82043; 82570; 83036; 85025

== ENCOUNTER 2024-06-30 08:19 | Outpatient (AMB) | payer OTHER, SELFPAY ==
[2024-06-30 08:32] VITALS: BP 120/70; PULSE 52; O2SAT 98; BMI 34.3
--- NOTE | 2024-06-30 08:32 | MHC.PC.OV ---
Vital Signs 06/30/24 08:32 Height 5 ft 11 in Weight 246 lb 2 oz BMI 34.3 BP 120/70 Blood Pressure Location Rt brachial Position Sitting Pulse 52 Pulse Source Pulse Oximeter Pulse Oximetry (%) 98 Oxygen Delivery Method Room Air Intake Visit Reasons: 4 month follow up Allergies No Known Allergies Allergy (Verified 06/30/24 08:36) Medication List - Last Reconciled 06/30/24 by Kristine Perez MD amiodarone 400 mg PO .once daily amlodipine 5 mg PO BEDTIME apixaban (Eliquis) 5 mg PO BID 90 days CPAP As directed glipizide-metformin 2.5-500 mg Two tablets in the morning and 1 at night 12 hours apart 90 days hydrochlorothiazide 25 mg PO QAM losartan 50 mg PO DAILY omeprazole 20 mg PO DAILY 90 days Tobacco use date assessed: 06/30/24 Dental Screening Dental Screen Date: 06/30/24 Did you have a dental visit in the last 12 months?: Yes Did you have a dental problem in the last 6 months where you did not have access to dental care?: No Was dental information given to patient?: Patient has dentist HPI 4 month follow up HPI Details Patient is 63-year-old gentleman came in today for his regular follow-up on diabetes Labs done recently shows hemoglobin A1c of 5.5, patient is currently taking glipizide metformin 2.5 mg 2 tablets in the morning and 1 at night I am reducing the dose to 1 b.i.d., we will repeat labs again in [address] 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 Obstructive sleep apnea: Using CPAP, for at least 8 hours at night Follow-up 4 months, labs are needed before visit nonfasting REPLACED BY [facility] Medical History Atrial fibrillation status post cardioversion History of cardioversion Atrial fibrillation Osteoarthritis Obesity Tremor of both hands ED (erectile dysfunction) Sleep apnea Diabetes 1.5, managed as type 2 Chronic GERD Hypertension, essential Surgical History H/O cardiac radiofrequency ablation History of shoulder surgery Umbilical hernia History of colonoscopy Family History Father No problems noted. Mother No problems noted. Brother No problems noted. Brother No problems noted. Brother No problems noted. Son No problems noted. Daughter No problems noted. Social History Housing: House Are you a primary overnight caregiver to a significant other at home: No Do you presently have visiting nurse or other home services: No Alcohol intake: current Alcohol intake frequency: former alcohol drinker Alcohol type: beer Comment: medicated with po oxycodone Patient Tobacco Use Status: Former Tobacco user Tobacco use type: Cigarette Years Smoked: 12 e-Cigarette/Vaping Use: Never Used Second Hand Smoke Exposure: No service: Yes Current occupational status: retired Cognitive needs: No Hearing needs: No Vision needs: Yes Questionnaire PHQ-9 Over the last 2 weeks, how often have you been bothered by any of the following problems? 1. Little interest or pleasure in doing things: not at all 2. Feeling down, depressed, or hopeless: not at all 3. Trouble falling or staying asleep, or sleeping too much: not at all 4. Feeling tired or having little energy: not at all 5. Poor appetite or overeating: not at all 6. Feeling bad about yourself - or that you are a failure or have let yourself or your family down: not at all 7. Trouble concentrating on things, such as reading the newspaper or watching television: not at all 8. Moving or speaking so slowly that other people could have noticed. Or the opposite - being so fidgety or restless that you have been moving around a lot more than usual: not at all 9. Thoughts that you would be better off or of hurting yourself in some way: not at all Total score: 0 Depression Screening Interpretation: Negative Depression Screening Done: Yes 55355 - PHQ-9 Billing: Yes Source: Developed by Drs. Kiko Brasher, Jessie Iniguez, Julio Almazan and colleagues, with an educational lorenzo from [employer]. Thrive Questionnaire Date Thrive assessed: 06/30/24 I am a: Patient What is your living situation today?: I have a steady place to live Within the past 12 months, did the food you bought not last and you didn't have the money to get more?: Often true Within the past 12 months, did you worry whether your food would run out before you got money to buy more?: Often true Do you have trouble paying for medicines?: No Do you have trouble getting transportation to medical appointments?: No Do you have trouble paying your heating and electricity bill?: No Do you have trouble taking care of your child, family member or friend?: No Do you have trouble with day-to-day activities such as bathing, preparing meals, shopping, managing finances, etc.?: No Are you currently unemployed and looking for a job?: No Are you interested in more education?: No Please select the resources that you would like help with: None Currently or been in a relationship where the following occur: No concerns reported THRIVE Score: 2 AUDIT C Alcohol Use Questionnaire (AUDIT-C) 1. How often do you have a drink containing alcohol?: Monthly or less 2. How many drinks containing alcohol do you have on a typical day when you are drinking?: 1 or 2 3. How often do you have six or more drinks on one occasion?: Never Total Score: 1 Score Reviewed/Action Taken: Yes RUSTAM-7 AMB Questionnaire RUSTAM-7 Date RUSTAM - 7 assessed: 06/30/24 Feeling nervous, anxious, or on edge: 0 = Not at all Not being able to stop or control worryin = Not at all Worrying too much about different things: 0 = Not at all Trouble relaxin = Not at all Being so restless that it is hard to sit still: 0 = Not at all Becoming easily annoyed or irritable: 0 = Not at all Feeling afraid as if something awful might happen: 0 = Not at all Total RUSTAM-7 score (0-4 normal; 5-9 mild; 10-14 moderate; 15-21 severe): 0 Source: Developed by Drs. Kiko Brasher, Julio Arvizu and colleagues, with an educational lorenzo from [employer]. RUSTAM-7 Assessment Billing RUSTAM-7 Assessment Tool: RUSTAM-7 Assessment 59852 Review of Systems Const Denies chills and Denies fever(s) ENT Denies epistaxis and Denies nasal discharge Card Denies chest pain Resp Denies chest congestion, Denies cough and Denies hemoptysis GI Denies diarrhea and Denies nausea Skin/Breast Denies rash Neuro Reports no additional complaints Psych Reports no additional complaints Endo Reports no additional complaints Physical exam (Primary Care) Vital Signs: Last Vital Signs Pulse 52 06/30/24 08:32 BP 120/70 06/30/24 08:32 Pulse Ox 98 06/30/24 08:32 Oxygen Delivery Method Room Air 06/30/24 08:32 BMI result Body Mass Index 34.3 Tobacco/Smoking Status: Tobacco use Status Tobacco use date assessed 06/30/24 06/30/24 08:37 Patient Tobacco Use Status Former Tobacco user 06/30/24 08:33 Tobacco use type Cigarette 06/30/24 08:33 e-Cigarette/Vaping Use Never Used 06/30/24 08:33 PHQ-9: PHQ-9 Score PHQ-9: Total score 0 06/30/24 09:11 Depression Screening Interpretation: Negative Thrive Assessment: Date of Thrive Assessment Date Thrive assessed 06/30/24 06/30/24 08:37 Currently or been in a relationship where the following occur: No concerns reported Const General: cooperative, comfortable and no acute distress Orientation/consciousness: patient oriented x3 HENMT Head: Yes normocephalic Eyes General: appearance normal, both eyes and all related structures Neck Neck: Yes supple Resp Effort & Inspection: normal respiratory effort, no cough and no stridor Cardio Heart sounds: S1 normal heart sound present and S2 normal heart sound present Skin General skin exam: turgor normal Neuro General: patient oriented x3, tone normal and moves all extremities Extrem Right lower extremity: no edema Left lower extremity: no edema Office Procedures Flu Questionnaire Does the patient have a severe egg allergy?: No Does the patient have severe life threatening allergies?: No Does the patient have a fever or illness today?: No Has the patient ever had Guillain-Warren Syndrome?: No Has the patient ever had any past reaction to a flu shot?: No Immunizations Fluarix Triv 1309-1813 (PF) 45 mcg (15 mcg x 3)/0.5 mL IM syringe Performing Provider: Kristine Perez MD Performing Location: [facility] Administered by: Moriah Navarro CMA on 06/30/24 09:10 Dose Route Admin Location Dispensed Lot Number Expiration Date NDC Rub[employer] Tester 0.5 mL IM Right Deltoid 0.5 mL [id number] 02/22/25 16715-336-48 [employer] VIS Given Date VIS Provided VIS Publication Date 06/30/24 Single Vaccine 21 Eligibility Eligibility Date Funding Source Not [facility] Eligible 06/30/24 Private Coding Level of Care Code Est Pt Level 4 (47012) Diagnoses Hypertension, essential I10 Chronic GERD K21.9 Diabetes 1.5, managed as type 2 E13.9 Persistent atrial fibrillation I48.19 CLAUDETTE (obstructive sleep apnea) G47.33 Additional Codes RUSTAM-7 Assessment Billing - RUSTAM-7 Assessment Tool: RUSTAM-7 Assessment 82030 ([id number]) Assessment & Plan Assessment & Plan (1) Hypertension, essential: Code(s): I10 - Essential (primary) hypertension Category: Medical (2) Chronic GERD: Code(s): K21.9 - Gastro-esophageal reflux disease without esophagitis Category: Medical (3) Diabetes 1.5, managed as type 2: Code(s): E13.9 - Other specified diabetes mellitus without complications Category: Medical (4) Persistent atrial fibrillation: Code(s): I48.19 - Other persistent atrial fibrillation Category: Medical (5) CLAUDETTE (obstructive sleep apnea): Comment: Severe degree of sleep apnea. The AHI was 46/hr and supine AHI was 56/hr and oxygen guera was 80% Code(s): G47.33 - Obstructive sleep apnea (adult) (pediatric) Category: Medical Plan Patient is 63-year-old gentleman came in today for his regular follow-up on diabetes Labs done recently shows hemoglobin A1c of 5.5, patient is currently taking glipizide metformin 2.5 mg 2 tablets in the morning and 1 at night I am reducing the dose to 1 b.i.d., we will repeat labs again in [address] 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 Obstructive sleep apnea: Using CPAP, for at least 8 hours at night Follow-up 4 months, labs are needed before visit nonfasting Orders: Orders Hemoglobin A1c 3 Months E13.9 - Other specified diabetes mellitus without complications, G47.33 - Obstructive sleep apnea (adult) (pediatric), I10 - Essential (primary) hypertension, I48.19 - Other persistent atrial fibrillation, K21.9 - Gastro-esophageal reflux disease without esophagitis Comprehensive Met. Panel 3 Months E13.9 - Other specified diabetes mellitus without complications, G47.33 - Obstructive sleep apnea (adult) (pediatric), I10 - Essential (primary) hypertension, I48.19 - Other persistent atrial fibrillation, K21.9 - Gastro-esophageal reflux disease without esophagitis Complete Blood Count Auto Diff 3 Months E13.9 - Other specified diabetes mellitus without complications, G47.33 - Obstructive sleep apnea (adult) (pediatric), I10 - Essential (primary) hypertension, I48.19 - Other persistent atrial fibrillation, K21.9 - Gastro-esophageal reflux disease without esophagitis Influenza [id number] Immunization Today Z23 - Encounter for immunization Medications: Changed From glipizide-metformin 2.5-500 mg Two tablets in the morning and 1 at night 12 hours apart 90 days 270 tabs 1RF To glipizide-metformin 2.5-500 mg 1 tab PO BID 180 tabs 1RF 90 days
== END 2024-06-30 09:17 | disposition home or self-care (01) ==
LOC: HO.HMCC 08:20
PROVIDERS: PCP Internal Medicine; Visit Provider Internal Medicine
DX: I10 Essential (primary) hypertension (principal); K21.9 Gastro-esophageal reflux disease without esophagitis; E13.9 Other specified diabetes mellitus without complications; I48.19 Other persistent atrial fibrillation; G47.33 Obstructive sleep apnea (adult) (pediatric); Z23 Encounter for immunization

== ENCOUNTER → 2024-06-30 08:19 | Outpatient (BNVA) | payer OTHER, SELFPAY | PROVIDERS: PCP Internal Medicine; Visit Provider Internal Medicine | DX: I10 Essential (primary) hypertension (principal); K21.9 Gastro-esophageal reflux disease without esophagitis; E13.9 Other specified diabetes mellitus without complications; I48.19 Other persistent atrial fibrillation; G47.33 Obstructive sleep apnea (adult) (pediatric); Z79.01 Long term (current) use of anticoagulants; Z79.84 Long term (current) use of oral hypoglycemic drugs; Z79.899 Other long term (current) drug therapy; Z23 Encounter for immunization | CPT/HCPCS: 90471; 90656; 96127 ==

== ENCOUNTER 2024-07-03 09:00 | Outpatient (REF) | payer OTHER, SELFPAY ==
[2024-07-03 10:07] LABS: Basophils Percent Auto 0.6 % (0-2); Eosinophils Absolute Auto 0.1 X10*3/uL (0.0-0.4); Eosinophils Percent Auto 2.1 % (0-4); Hematocrit 46.9 % (42.0-52.0); Hemoglobin 16.2 g/dl (14.0-18.0); Imm Gran Abs Auto 0.04 X10*3/uL (0.00-0.03); Imm Gran Pct Auto 0.6 % (0.0-0.4); Lymphocytes Absolute Auto 1.1 X10*3/uL (1.2-4.9); Lymphocytes Percent Auto 16.5 % (20-40); MANUAL DIFF FLAG NO; Mean Corpuscular HGB Conc 34.5 g/dl (31.0-36.0); Mean Corpuscular Hemoglobin 29.4 pg (27.0-33.0); Mean Corpuscular Volume 85.1 fL (80.0-98.0); Monocytes Absolute Auto 0.5 X10*3/uL (0.1-1.2); Monocytes Percent Auto 6.9 % (2-11); Neutrophils Percent Auto 73.3 % (45-73); Platelet Count 226 X10*3/uL (160-400); Red Blood Count 5.51 X10*6/uL (4.60-5.80); Red Cell Distribution Width 12.5 % (11.0-16.0); White Blood Count 6.8 X10*3/uL (4.8-10.8)
[2024-07-03 10:11] LABS: INTERNATIONAL NORM RATIO 1.3 (0.9-1.1)
[2024-07-03 11:52] LABS: Anion Gap 11 (12-20); Blood Urea Nitrogen 12 mg/dL (9-16); Calcium 9.3 mg/dL (8.4-10.2); Carbon Dioxide 30 mmol/L (22-29); Chloride 104 mmol/L (96-108); Estimated Glomerular Filt Rate > 60; Glucose Random 115 mg/dL (60-115); Potassium 4.1 mmol/L (3.3-5.1); Sodium 141 mmol/L (135-145)
== END 2024-07-03 09:01 | disposition home or self-care (01) ==
LOC: HO.HMGCLDS 09:00
PROVIDERS: PCP Internal Medicine; Visit Provider Internal Medicine Cardiovascular Disease
DX: Z01.818 Encounter for other preprocedural examination (principal); I48.19 Other persistent atrial fibrillation
CPT/HCPCS: 36415; 80048; 85025; 85610

== ENCOUNTER 2024-08-27 13:32 | Outpatient (AMB) | payer OTHER, SELFPAY ==
--- NOTE | 2024-08-27 14:06 | A.OFFVIS_ITS ---
Vital Signs 08/27/24 14:08 Height 5 ft 11 in Weight 246 lb 14.684 oz BMI 34.4 BP 120/68 Blood Pressure Location Lt brachial Position Sitting Pulse 64 Pulse Source Monitor Intake Visit Reasons: r/s 08/03/24 6 mos followup Allergies No Known Allergies Allergy (Verified 06/30/24 08:36) Medication List - Last Reconciled 08/27/24 by Selina Sotelo NP-C amiodarone 200 mg PO DAILY amlodipine 5 mg PO BEDTIME apixaban (Eliquis) 5 mg PO BID 90 days CPAP As directed glipizide-metformin 2.5-500 mg 1 tab PO BID 90 days hydrochlorothiazide 25 mg PO QAM losartan 50 mg PO DAILY omeprazole 20 mg PO DAILY 90 days HPI HPI r/s 08/03/24 6 mos followup: Details: Nolan is a 63-year-old male with past medical history of hypertension, diabetes, sleep apnea, obesity, recurrent persistent atrial fibrillation following 3 cardioversions, antiarrhythmic use and 2 atrial fibrillation ablations. His last ablation was done early June [address] Gaines. Today he presents for follow-up. Today he reports he has been feeling well since his last ablation. He has not noticed any heart palpitations. He was not aware that he was in atrial fibrillation at this visit until EKG confirmed it. He denies any shortness of breath, no PND, orthopnea or edema. He has no chest discomfort at rest or with activity. No lightheadedness, presyncope, syncope, falls. He still walks around 45 minute daily and is working on weight control. Has no bleeding issues with use of Eliquis. He has a follow-up with electrophysiology, Dr Gaines tomorrow. He is compliant with his CPAP mask. [facility] Medical History Atrial fibrillation status post cardioversion History of cardioversion Atrial fibrillation Osteoarthritis Obesity Tremor of both hands ED (erectile dysfunction) Sleep apnea Diabetes 1.5, managed as type 2 Chronic GERD Hypertension, essential Surgical History H/O cardiac radiofrequency ablation History of shoulder surgery Umbilical hernia History of colonoscopy Family History Father No problems noted. Mother No problems noted. Brother No problems noted. Brother No problems noted. Brother No problems noted. Son No problems noted. Daughter No problems noted. Social History Housing: House Are you a primary respiratory care technician to a significant other at home: No Do you presently have visiting nurse or other home services: No Alcohol intake: current Alcohol intake frequency: holidays/special occasions only Alcohol type: beer Comment: medicated with po oxycodone Patient Tobacco Use Status: Former Tobacco user Tobacco use type: Cigarette Years Smoked: 12 e-Cigarette/Vaping Use: Never Used Second Hand Smoke Exposure: No service: Yes Current occupational status: retired Cognitive needs: No Hearing needs: No Vision needs: Yes Review of Systems Const All systems reviewed & are unremarkable except as noted in HPI and below Denies weakness ENT Denies dizziness Card Denies chest pain, Denies chest pain with activity, Denies syncope, Denies rapid heart rate, Denies pedal edema, Denies edema, Denies leg edema, Denies lightheadedness, Denies palpitations, Denies dyspnea, Denies dyspnea on exertion and Denies orthopnea Resp Denies cough, Denies dyspnea and Denies dyspnea on exertion GI Denies hematochezia and Denies change in stool character Musc Denies abnormal gait, Denies muscle cramps, Denies muscle weakness, Denies numbness, Denies radiating pain into limb and Denies tingling Neuro Denies abnormal gait, Denies dizziness, Denies syncope, Denies numbness, Denies tingling and Denies weakness Endo Denies palpitations Physical Exam Vital Signs: Last Vital Signs Pulse 64 08/27/24 14:08 BP 120/68 08/27/24 14:08 BMI result Body Mass Index 34.4 Const General: cooperative, healthy appearing, comfortable and no acute distress Orientation/consciousness: patient oriented x3 Neck Neck: Yes normal visual inspection and Yes no JVD Resp Effort & Inspection: normal respiratory effort Auscultation: clear to auscultation bilaterally, no crackles, no rales, no rhonchi and no wheezes Cardio Jugular venous distension: no JVD Rate: regular rate Rhythm: abnormal rhythm Heart sounds: S1 normal heart sound present, S2 normal heart sound present, no murmurs and no rubs Neuro General: patient oriented x3 Extrem General: Yes normal to inspection, No no pedal edema and No calf tenderness Psych Appearance: grossly normal Mental Status: mental status grossly normal Speech and movement: Normal speech and movement present Office Procedures EKG Details: Today, read by me, atrial fibrillation, can not exclude prior inferior infarct or anterior lateral infarct, rate 64, QTC 441 milliseconds [id number], Complete Assessment & Plan Assessment & Plan (1) Persistent atrial fibrillation: Code(s): I48.19 - Other persistent atrial fibrillation Category: Medical Plan: Initial finding of atrial fibrillation 03/02/2022 when he came for colonoscopy. Echocardiogram done 03/08/2022 showed EF 60-65%, mildly dilated left atrium, normal valves. Since that time he has undergone 3 cardioversions with recurrent atrial fibrillation, even with use of antiarrhythmic. He has been on fl ecainide. Multaq previously ordered but he could not afford the co-pay. More recently he was put on amiodarone. His last echo was 10/29/2023 showing EF 60- 65%, left atrial size upper limit of normal. He has undergone 2 atrial fibrillation ablations, one on 12/12/2023 and a repeat done early June 2024. He tells me he has not had any EKGs since that procedure. His EKG done today is showing atrial fibrillation, rate 64, patient informed. Continues on amiodarone 200 mg daily. He is not on other rate slowing agents. He has a follow-up with Dr. Gaines tomorrow. I gave him a copy of our EKG for review. Currently patient is asymptomatic. No med changes made at this visit. Continue activity as tolerated. Cardiology follow-up here in 4 months, sooner if needed. (2) Sleep apnea: Comment: cpap Code(s): G47.30 - Sleep apnea, unspecified Category: Medical Plan: Compliant with CPAP. Follows with Sleep Medicine (3) Hypertension, essential: Code(s): I10 - Essential (primary) hypertension Category: Medical Plan: Well controlled at this time. No med changes made Plan Time spent on chart review, documentation, interview and assessment Coding Level of Care Code Est Pt Level 4 (22937) Complex EM visit Add On G2211 Diagnoses Persistent atrial fibrillation I48.19 Sleep apnea G47.30 Hypertension, essential I10 CPT Codes EKG - CPT: [id number], Complete ([id number]) Time Spent (min) 30
[2024-08-27 14:08] VITALS: BP 120/68; PULSE 64; BMI 34.4
== END 2024-08-27 14:34 | disposition home or self-care (01) ==
PROVIDERS: PCP Internal Medicine; Visit Provider Nurse Practitioner Family
DX: I48.19 Other persistent atrial fibrillation (principal); G47.30 Sleep apnea, unspecified; I10 Essential (primary) hypertension
CPT/HCPCS: 93010; 99214

== ENCOUNTER → 2024-08-27 13:32 | Outpatient (BNVA) | payer OTHER, SELFPAY | PROVIDERS: PCP Internal Medicine; Visit Provider Nurse Practitioner Family | DX: I48.19 Other persistent atrial fibrillation (principal); G47.30 Sleep apnea, unspecified; I10 Essential (primary) hypertension; Z79.899 Other long term (current) drug therapy; Z99.89 Dependence on other enabling machines and devices | CPT/HCPCS: 93005 ==

== ENCOUNTER 2024-09-30 11:11 | Day surgery (SDC) | payer OTHER, SELFPAY ==
--- NOTE | 2024-09-30 | ECG_ITS ---
Test Reason : post cardioversion Blood Pressure : */* mmHG Vent. Rate : 58 BPM Atrial Rate : 58 BPM P-R Int : 244 ms QRS Dur : 86 ms QT Int : 430 ms P-R-T Axes : -9 -74 -1 degrees QTcB Int : 422 ms Sinus bradycardia with 1st degree A-V block Left axis deviation Inferior infarct (cited on or before 02-Mar-2022) Cannot rule out Anterior infarct (cited on or before 02-Mar-2022) Abnormal ECG When compared with ECG of 16-Jan-2024 12:19, No significant change was found Referred By: Guillermo Alcantar Electronically Signed By: Guillermo Alcantar
--- NOTE | 2024-09-30 11:24 | MHC.SHP ---
Pre-Procedural Eval Section A - 24 Hr Update-Section A only Date of Service: 09/30/24 The patient is an INPATIENT: No Section B - Complete if H&P > 30 days Chief Complaint: Paroxysmal atrial fibrillation Details of Present Illness: Here for cardioversion Allergies: Allergies Allergy/AdvReac Type Severity Reaction Status Date / Time No Known Allergies Allergy Verified 06/30/24 08:36 Plan Diagnosis/Plan: Unchanged I have reviewed the history and physical and performed a pertinent physical examination on my patient. No changes have occurred unless specified. Time Spent With Patient Time: Total time managing care of this patient today ____ minutes.
[2024-09-30 11:43] VITALS: BMI 35.3
[2024-09-30 11:48] VITALS: BP 143/75; PULSE 58; RESP 16; TEMP 35.9; O2SAT 98
[2024-09-30 12:13] LABS: Glucose, Whole Blood 154 mg/dL (60-115)
[2024-09-30] MEDS: Lactated Ringers 1,000 ML 100 ML IVCONT (12:17)
--- OUTSIDE RECORDS SUMMARY | 2024-09-30 12:33 | XMS_ITS | Clinical Summary ---
Author Organization [address] [facility] Address [address] [place] [address] Phone Care Team Providers Care Multimedia Assistant Name Role Phone Kristine Perez MD Primary Care Provider [phone] Social History Tobacco Use Types Packs/Day Years Used Date Smoking Tobacco: Never Assessed Sex and Gender Information Value Date Recorded Sex Assigned at Not on file Gender Identity Not on file Sexual Orientation Not on file Plan of Treatment Upcoming Encounters Date Type Department Care Team ([facility] Contact Info) Description 10/19/2024 11:00 AM EST Consult Orthopedic Surgery - [place] [id number] [id number] Marco Gomez DPM [address] [id number] Health Maintenance Due Date Last Done Comments Diabetes: Annual GFR (Glomer ular Filtration Rate) 1960 Pneumococcal Vaccine: Pediat rics (0 to 5 Years) and At-Risk Patients (6 to 64 Years) (1 of 2 - PCV) 11/13/1967 Diabetes: Annual Foot Exam 11/13/1971 Diabetes: Annual Retina Eye Exam 11/13/1971 DTaP,Tdap,and Td Vaccines (1 - Tdap) 1980 Zoster Vaccines (1 of 2) 11/13/2011 COVID-19 Vaccine ( - 2023-2 5 season) 2024 Influenza Vaccine (#1) 2024 Cholesterol Screening (Lipid Panel) 08/13/2024 Colorectal Cancer Screening: Colonoscopy 08/13/2024 Depression Screening 08/13/2024 Diabetes: Annual Urine Albumin-Creatinine Ratio (uACR) 08/13/2024 Diabetes: Blood Sugar Contro l Test (HGBA1C) 08/13/2024 HIV Screening 08/13/2024 Hepatitis C Screening 08/13/2024 Social Influencers of Health Screening 08/13/2024 RSV Immunization Patients 60 + Years Old (1 - 1-dose 75+ series) 2036 HIB Vaccines Aged Out No longer eligi ble based on patient's age to complete this topic HPV Vaccines Aged Out No longer eligi ble based on patient's age to complete this topic Hepatitis A Vaccines Aged Out No long er eligible based on patient's age to complete this topic Hepatitis B Vaccines Aged Out No long er eligible based on patient's age to complete this topic IPV Vaccines Aged Out No longer eligi ble based on patient's age to complete this topic MMR Vaccines Aged Out No longer eligi ble based on patient's age to complete this topic Meningococcal ACWY Vaccine Aged Out N o longer eligible based on patient's age to complete this topic RSV Immunization Patients Un elmer 20 months Aged Out No longer eligible b ased on patient's age to complete this topic Varicella Vaccines Aged Out No longer eligible based on patient's age to complete this topic Insurance Payer Benefit Plan / Group Subscriber ID Effective Dates Phone Address [facility] [id number] 2021-Present [address] [place] [address] [facility] [employer] [id number] 2024-Pre[facility] [id number] [place] [address] Care Teams Multimedia Assistant Relationship Specialty Start Date End Date Kristine Perez MD [address] [place] [phone] PCP - General Internal Medicine 08/12/24
--- NOTE | 2024-09-30 12:40 | HO.ANESPROP2 ---
Documented by User: Betzaida Jo NP 09/29/24 09:47 HPI - Anesthesia Eval Consult details Narrative: 63yo M for Cardioversion s/p same 12/2023 [facility] Active Problems Active Problems: All Active Problems Encounter for diabetic foot exam (Acute) Cellulitis (Acute) Subconjunctival hemorrhage (Acute) Lightheaded (Acute) Other persistent atrial fibrillation (Acute) Encounter for general adult medical examination with abnormal findings (Acute) Obesity due to excess calories (Acute) Possible alcohol use disorder on screening for alcoholism (Acute) Colon cancer screening (Acute) PAF (paroxysmal atrial fibrillation) (Acute) New onset atrial fibrillation (Acute) Hospital discharge follow-up (Acute) Right shoulder strain (Acute) Osteoarthritis of right shoulder (Acute) Calcific tendinitis of right shoulder (Acute) CLAUDETTE (obstructive sleep apnea) (Acute) Preoperative cardiovascular examination (Acute) Persistent atrial fibrillation (Acute) Biceps tendonitis on right (Acute) Obesity (Acute) Sleep apnea (Acute) Diabetes 1.5, managed as type 2 (Acute) Chronic GERD (Acute) Hypertension, essential (Acute) Past Medical History Medical History (Updated 09/30/24 @ 11:42 by Ursula Thompson RN) History of cardioversion Atrial fibrillation status post cardioversion History of cardioversion Atrial fibrillation Osteoarthritis Obesity Tremor of both hands ED (erectile dysfunction) Sleep apnea Diabetes 1.5, managed as type 2 Chronic GERD Hypertension, essential Family History Family History Father No problems noted. Mother No problems noted. Brother No problems noted. Brother No problems noted. Brother No problems noted. Son No problems noted. Daughter No problems noted. Family history of problems with anesthesia: No Surgical History Surgical History (Updated 09/30/24 @ 11:42 by Ursula Thompson RN) Hx of appendectomy H/O cardiac radiofrequency ablation History of shoulder surgery Umbilical hernia History of colonoscopy History of Problems with Anesthesia: No Social History Social History Housing: House Are you a primary career portals teacher to a significant other at home: No Do you presently have visiting nurse or other home services: No Alcohol intake: current Alcohol intake frequency: former alcohol drinker Alcohol type: beer Comment: medicated with po oxycodone Patient Tobacco Use Status: Former Tobacco user Tobacco use type: Cigarette Years Smoked: 12 e-Cigarette/Vaping Use: Never Used Second Hand Smoke Exposure: No Use of substances other than those prescribed or required for medical reasons: No Are you DNR?: No Advance Directives: No Advance Directives Information Provided: Yes Recently lost weight without trying: No Nutrition Risks: No Nutritional Risk service: Yes Current occupational status: retired Cognitive needs: No Hearing needs: No Vision needs: Yes Meds Allergies Allergy/AdvReac Type Severity Reaction Status Date / Time No Known Allergies Allergy Verified 06/30/24 08:36 Home Medications ?Medication ?Instructions ?Recorded ?Confirmed ?Last Taken ?Type CPAP 10/12/22 08/27/24 Unknown History amiodarone 200 mg tablet 200 mg PO DAILY 08/27/24 09/30/24 09/30/24 History Assessment and Plan Assessment Anesthesia Assessment: Chart Reviewed Final Anesthetic Review Family History of Problems with Anesthesia: No History of Problems with Anesthesia: No Documented by User: Maine Barroso DO 09/30/24 13:16 [facility] Past Medical History Medical History (Updated 09/30/24 @ 11:42 by Ursula Thompson RN) History of cardioversion Atrial fibrillation status post cardioversion History of cardioversion Atrial fibrillation Osteoarthritis Obesity Tremor of both hands ED (erectile dysfunction) Sleep apnea Diabetes 1.5, managed as type 2 Chronic GERD Hypertension, essential Family History Family History Father No problems noted. Mother No problems noted. Brother No problems noted. Brother No problems noted. Brother No problems noted. Son No problems noted. Daughter No problems noted. Family history of problems with anesthesia: No Surgical History Surgical History (Updated 09/30/24 @ 11:42 by Ursula Thompson RN) Hx of appendectomy H/O cardiac radiofrequency ablation History of shoulder surgery Umbilical hernia History of colonoscopy History of Problems with Anesthesia: No Social History Social History Housing: House Are you a primary career portals teacher to a significant other at home: No Do you presently have visiting nurse or other home services: No Alcohol intake: current Alcohol intake frequency: former alcohol drinker Alcohol type: beer Comment: medicated with po oxycodone Patient Tobacco Use Status: Former Tobacco user Tobacco use type: Cigarette Years Smoked: 12 e-Cigarette/Vaping Use: Never Used Second Hand Smoke Exposure: No Use of substances other than those prescribed or required for medical reasons: No Are you DNR?: No Advance Directives: No Advance Directives Information Provided: Yes Recently lost weight without trying: No Nutrition Risks: No Nutritional Risk service: Yes Current occupational status: retired Cognitive needs: No Hearing needs: No Vision needs: Yes Meds Allergies Allergy/AdvReac Type Severity Reaction Status Date / Time No Known Allergies Allergy Verified 06/30/24 08:36 Home Medications ?Medication ?Instructions ?Recorded ?Confirmed ?Last Taken ?Type CPAP 10/12/22 08/27/24 Unknown History amiodarone 200 mg tablet 200 mg PO DAILY 08/27/24 09/30/24 09/30/24 History Exam Exam Date and Time: 09/30/24 1245 Height,Weight and Vital Signs: Height 5 ft 11 in Weight 114.8 kg Vital Signs Temperature 96.7 F L 09/30/24 11:48 Pulse Rate 58 09/30/24 11:48 Respiratory Rate 16 09/30/24 11:48 Blood Pressure 143/75 H 09/30/24 11:48 Pulse Oximetry 98 09/30/24 11:48 Oxygen Delivery Method Room Air 09/30/24 11:48 Temperature 96.7 F L 09/30/24 11:48 Pulse Rate 58 09/30/24 11:48 Respiratory Rate 16 09/30/24 11:48 Blood Pressure 143/75 H 09/30/24 11:48 Pulse Oximetry 98 09/30/24 11:48 Oxygen Delivery Method Room Air 09/30/24 11:48 Airway Mallampati Class: II TM Dist: >3cm Neck ROM: Full Loose/Missing/Broken Teeth: No (patient denies any loose or broken teeth) Heart: S1S2 Lungs: CTAB Assessment and Plan Assessment Anesthesia Assessment: Anesthesia Plan Discussed and Chart Reviewed Final Anesthetic Review Family History of Problems with Anesthesia: No History of Problems with Anesthesia: No NPO: Yes ASA Class: III Final Preanesthetic Review: No Changes in Pt Med Stat, Meds/Allgs Chart Reviewed, Consent Obtained/Reviewed and Anes Risks/Benef Reviewed Patient Risk: Intermediate Procedure Risk: Intermediate Anesthetic Plan Anesthetic Plan: MAC: and Agree w/ Assess. and Plan Disposition: Standard PACU
--- NOTE | 2024-09-30 13:46 | P.PNCAR_ITS ---
Cardioversion Procedure Note Cardioversion Date of Procedure: 09/30/24 Ordering Provider: Guillermo Alcantar Performing Provider: Guillermo Alcantar Indication for Procedure: PAF Performed with Transesophageal Echo: No History: 63 year old gentleman with PAF s/p ablation who has developed Afib again. R eferred by his EP work and family life consultant to do cardioversion. Consent: Verbal and Written consent was obtained from the patient before starting. The patient was made aware of the risk of stroke, failure, arrhythmia, skin burn. Procedure: After consent obtained, defib pads were attached and the patient was sedated by the anesthesia team. Once adequate sedation achieved, single shock of 200 J synchronized was given. The patient converted to sinus rhythm. Complications: No acute complications. Recommendations: c/w amiodarone and Eliquis. We will arrange office follow up.
[2024-09-30 13:50] VITALS: BP 124/73; PULSE 56; RESP 20; TEMP 36.4; O2SAT 96
[2024-09-30 14:05] VITALS: BP 122/73; PULSE 55; RESP 16; O2SAT 96
== END 2024-09-30 14:31 | disposition home or self-care (01) ==
PROVIDERS: PCP Internal Medicine; Visit Provider Internal Medicine Cardiovascular Disease
PROC: 5A2204Z Restoration of Cardiac Rhythm, Single (ICD-10-PCS; principal; 2024-09-30 12:30)
DX: I48.0 Paroxysmal atrial fibrillation (principal); I48.19 Other persistent atrial fibrillation; I10 Essential (primary) hypertension; E11.9 Type 2 diabetes mellitus without complications; Z79.01 Long term (current) use of anticoagulants; Z79.84 Long term (current) use of oral hypoglycemic drugs; Z99.89 Dependence on other enabling machines and devices; G47.33 Obstructive sleep apnea (adult) (pediatric); Z87.891 Personal history of nicotine dependence
CPT/HCPCS: 82947; 92960; 93005; J0461; J2704

== ENCOUNTER → 2024-09-30 11:11 | Outpatient (BNV) | payer OTHER, SELFPAY | PROVIDERS: PCP Internal Medicine; Visit Provider Internal Medicine Cardiovascular Disease | DX: I48.91 Unspecified atrial fibrillation (principal); R94.31 Abnormal electrocardiogram [ECG] [EKG] | CPT/HCPCS: 92960; 93010 ==

== ENCOUNTER 2024-10-13 09:11 | Outpatient (REF) | payer OTHER, SELFPAY ==
[2024-10-13 09:49] LABS: MANUAL DIFF FLAG NO
--- OUTSIDE RECORDS SUMMARY | 2024-10-13 09:51 | XMS_ITS | Clinical Summary ---
Author Organization 175 [facility] Address [address] [place] [address] Phone Care Team Providers Care Desk Pens Assembler Name Role Phone Kristine Perez MD Primary Care Provider [phone] Social History Tobacco Use Types Packs/Day Years Used Date Smoking Tobacco: Never Assessed Sex and Gender Information Value Date Recorded Sex Assigned at Not on file Legal Sex Male 3:29 PM EST Gender Identity Not on file Sexual Orientation Not on file Plan of Treatment Upcoming Encounters Date Type Department Care Team ([facility] Contact Info) Description 10/19/2024 11:00 AM EST Consult Orthopedic Surgery - [place] [id number] [address] Marco Gomez DPM [address] [address] Health Maintenance Due Date Last Done Comments Diabetes: Annual GFR (Glomer ular Filtration Rate) 1961 Diabetes: Annual Foot Exam 11/13/1971 Diabetes: Annual Retina Eye Exam 11/13/1971 DTaP,Tdap,and Td Vaccines (1 - Tdap) 1980 Pneumococcal Vaccine: 50+ Ye ars (1 of 2 - PCV) 1980 Pneumococcal Vaccine: Pediat rics (0 to 5 Years) and At-Risk Patients (6 to 64 Years) (1 of 2 - PCV) 1980 Zoster Vaccines (1 of 2) 11/13/2011 [...] patient's age to complete this topic Meningococcal B Vacine Aged Out No lo nger eligible based on patient's age to complete this topic RSV Immunization Patients Un elmer 20 months Aged Out No longer eligible b ased on patient's age to complete this topic Varicella Vaccines Aged Out No longer eligible based on patient's age to complete this topic Insurance [facility] [employer] Care Teams Desk Pens Assembler Relationship Specialty Start Date End Date Kristine Perez MD [address] [place] [address] PCP - General Internal Medicine 08/12/24
[2024-10-13 10:23] LABS: Basophils Absolute Auto 0.1 X10*3/uL (0.0-0.2); Eosinophils Absolute Auto 0.2 X10*3/uL (0.0-0.4); Eosinophils Percent Auto 2.9 % (0-4); Hematocrit 47.6 % (42.0-52.0); Hemoglobin 16.3 g/dl (14.0-18.0); Imm Gran Abs Auto 0.06 X10*3/uL (0.00-0.03); Imm Gran Pct Auto 0.9 % (0.0-0.4); Lymphocytes Absolute Auto 1.4 X10*3/uL (1.2-4.9); Lymphocytes Percent Auto 19.7 % (20-40); Mean Corpuscular HGB Conc 34.2 g/dl (31.0-36.0); Mean Corpuscular Hemoglobin 29.8 pg (27.0-33.0); Mean Platelet Volume 10.8 fL (9.4-12.4); Monocytes Absolute Auto 0.5 X10*3/uL (0.1-1.2); Monocytes Percent Auto 6.5 % (2-11); Neutrophils Absolute Auto 4.8 x10*3/uL (2.0-8.3); Platelet Count 188 X10*3/uL (160-400); Red Blood Count 5.47 X10*6/uL (4.60-5.80); White Blood Count 6.9 X10*3/uL (4.8-10.8)
[2024-10-13 10:24] LABS: Estimated Average Glucose 131 mg/dL; Hemoglobin A1C 180.3737 umol/L; Hemoglobin A1c % 6.2 % (<6.0); Total Hemoglobin (HGBA1C) 4042.0726 umol/L
[2024-10-13 11:11] LABS: Alanine Aminotransferase 32 U/L (0-40); Albumin Level 4.3 g/dL (3.5-5.0); Alkaline Phosphatase 47 U/L (39-117); Anion Gap 16 (12-20); Aspartate Amino Transferase 27 U/L (5-37); Bilirubin Total 1.2 mg/dL (0.0-1.0); Blood Urea Nitrogen 16 mg/dL (9-16); Calcium 9.7 mg/dL (8.4-10.2); Carbon Dioxide 26 mmol/L (22-29); Chloride 102 mmol/L (96-108); Estimated Glomerular Filt Rate > 60; Glucose Random 135 mg/dL (60-115); Potassium 3.8 mmol/L (3.3-5.1); Sodium 140 mmol/L (135-145); TSH reflex Free T4 3.26 uIU/mL (0.32-4.0); Total Protein 7.2 g/dL (6.5-8.0)
== END 2024-10-13 09:12 | disposition home or self-care (01) ==
LOC: HO.LAB 09:11
PROVIDERS: Absent Provider Internal Medicine Cardiovascular Disease; PCP Internal Medicine; Visit Provider Internal Medicine
DX: I48.19 Other persistent atrial fibrillation (principal); I10 Essential (primary) hypertension; K21.9 Gastro-esophageal reflux disease without esophagitis; E13.9 Other specified diabetes mellitus without complications; G47.33 Obstructive sleep apnea (adult) (pediatric); Z79.899 Other long term (current) drug therapy
CPT/HCPCS: 36415; 80053; 83036; 84443; 85025

== ENCOUNTER 2024-10-30 08:26 | Outpatient (AMB) | payer OTHER, SELFPAY ==
[2024-10-30 08:29] VITALS: BP 120/68; PULSE 65; RESP 16; O2SAT 95; BMI 35.5
--- NOTE | 2024-10-30 08:29 | MHC.PC.OV ---
Vital Signs 10/30/24 08:29 Height 5 ft 11 in Weight 254 lb 4 oz BMI 35.5 BP 120/68 Blood Pressure Location Rt brachial Position Sitting Respiration 16 Pulse 65 Pulse Source Pulse Oximeter Pulse Oximetry (%) 95 Oxygen Delivery Method Room Air Intake Visit Reasons: 4m follow up Allergies No Known Allergies Allergy (Verified 10/30/24 08:30) Medication List - Last Reconciled 10/30/24 by Kristine Perez MD amlodipine 5 mg PO BEDTIME apixaban (Eliquis) 5 mg PO BID 90 days CPAP As directed glipizide-metformin 2.5-500 mg 1 tab PO BID 90 days hydrochlorothiazide 25 mg PO QAM losartan 50 mg PO DAILY omeprazole 20 mg PO DAILY 90 days Tobacco use date assessed: 10/30/24 Dental Screening Dental Screen Date: 10/30/24 Did you have a dental visit in the last 12 months?: Yes Did you have a dental problem in the last 6 months where you did not have access to dental care?: No Was dental information given to patient?: Patient has dentist HPI 4m follow up HPI Details - The patient is a 63-year-old male presenting for a regular follow-up appointment. - Has a history of atrial fibrillation, recently treated with cardioversion and followed up with cardiology indicating a normal sinus rhythm. Amiodarone, previously prescribed, has been discontinued. - Expressed concerns about significant weight gain attributed to increased soda consumption, with a current BMI of 35.5. Addressed by dietary changes and increased physical activity. - Reports enduring a persistent lumbar muscle strain for several months with no radiation but discomfort exacerbated by certain physical activities. The condition has lasted between 6 to 8 months. - Evaluated on October 13 with normal lab results, including renal function and CBC; however, Hemoglobin A1c recorded at 6.2%, - diabetes, controlled diet and continue medication Problem List - Atrial Fibrillation - Overweight/Obesity (BMI 54.4) - Muscle Strain - History of Amiodarone use - Elevated Hemoglobin A1c (6.2%) - diabetes Patient Instructions - Continue daily one-hour walks for physical activity. - Avoid soda and maintain dietary changes to manage weight. - Use Tylenol Arthritis (650 mg) as recommended for muscle strain pain relief. - Consider physical therapy to assist with lumbar muscle strain. The order for physical therapy is already placed. - Follow-up in four months for reassessment. Review of Systems - General: No fever no chills - Neurological: No headaches no dizziness - Ear nose throat: No sore throat no hearing difficulty no ear pain - Cardiovascular: No syncope, no chest pain, no palpitations - Gastrointestinal: No nausea vomiting or diarrhea - Endocrine: No polyuria polydipsia no heat intolerance - Genitourinary: No dysuria , no blood in urine Physical Exam General: No acute distress HEENT: No acute findings Neck: Supple Respiratory system: Able to talk in full sentences, no audible wheeze cardiovascular: S1-S2 regular in rate and rhythm Gastrointestinal: No pain, but reports back pain on both sides due to muscle strain Back: Discomfort paraspinal lumbar, range of motion slightly limited because of discomfort, straight leg negative bilateral Extremities: No new findings FINANCIAL AUDITOR: Alert awake oriented x3 motor sensory intact Skin: Normal turgor [facility] Medical History History of cardioversion Atrial fibrillation status post cardioversion History of cardioversion Atrial fibrillation Osteoarthritis Obesity Tremor of both hands ED (erectile dysfunction) Sleep apnea Diabetes 1.5, managed as type 2 Chronic GERD Hypertension, essential Surgical History Hx of appendectomy H/O cardiac radiofrequency ablation History of shoulder surgery Umbilical hernia History of colonoscopy Family History Father No problems noted. Mother No problems noted. Brother No problems noted. Brother No problems noted. Brother No problems noted. Son No problems noted. Daughter No problems noted. Social History Housing: House Are you a primary healthcare financial analyst to a significant other at home: No Do you presently have visiting nurse or other home services: No Alcohol intake: current Alcohol intake frequency: former alcohol drinker Alcohol type: beer Comment: medicated with po oxycodone Patient Tobacco Use Status: Former Tobacco user Tobacco use type: Cigarette Years Smoked: 12 e-Cigarette/Vaping Use: Never Used Second Hand Smoke Exposure: No service: Yes Current occupational status: retired Cognitive needs: No Hearing needs: No Vision needs: Yes Questionnaire PHQ-9 Over the last 2 weeks, how often have you been bothered by any of the following problems? 78420 - PHQ-9 Billing: Patient declined-do not bill Source: Developed by Drs. Kiko Brasher, Jessie Iniguez, Julio Almazan and colleagues, with an educational lorenzo from [employer]. Thrive Questionnaire Date Thrive assessed: 10/30/24 I am a: Patient What is your living situation today?: I choose not to answer this question Within the past 12 months, did the food you bought not last and you didn't have the money to get more?: I choose not to answer this question Within the past 12 months, did you worry whether your food would run out before you got money to buy more?: I choose not to answer this question Do you have trouble paying for medicines?: I choose not to answer this question Do you have trouble getting transportation to medical appointments?: I choose not to answer this question Do you have trouble paying your heating and electricity bill?: I choose not to answer this question Do you have trouble taking care of your child, family member or friend?: I choose not to answer this question Do you have trouble with day-to-day activities such as bathing, preparing meals, shopping, managing finances, etc.?: I choose not to answer this question Are you currently unemployed and looking for a job?: I choose not to answer this question Are you interested in more education?: I choose not to answer this question Please select the resources that you would like help with: None Currently or been in a relationship where the following occur: I choose not to answer THRIVE Score: 0 AUDIT C Alcohol Use Questionnaire (AUDIT-C) 1. How often do you have a drink containing alcohol?: Monthly or less 2. How many drinks containing alcohol do you have on a typical day when you are drinking?: 1 or 2 3. How often do you have six or more drinks on one occasion?: Less than monthly Total Score: 2 Score Reviewed/Action Taken: Yes RUSTAM-7 AMB Questionnaire RUSTAM-7 Date RUSTAM - 7 assessed: 10/30/24 Feeling nervous, anxious, or on edge: 0 = Not at all Not being able to stop or control worryin = Not at all Worrying too much about different things: 0 = Not at all Trouble relaxin = Not at all Being so restless that it is hard to sit still: 0 = Not at all Becoming easily annoyed or irritable: 0 = Not at all Feeling afraid as if something awful might happen: 0 = Not at all Total RUSTAM-7 score (0-4 normal; 5-9 mild; 10-14 moderate; 15-21 severe): 0 Source: Developed by Drs. Kiko Brasher, Jessie Iniguez, Julio Almazan and colleagues, with an educational lorenzo from [employer]. RUSTAM-7 Assessment Billing RUSTAM-7 Assessment Tool: RUSTAM-7 Assessment 21664 Physical exam (Primary Care) Vital Signs: Last Vital Signs Pulse 65 10/30/24 08:29 Resp 16 10/30/24 08:29 BP 120/68 10/30/24 08:29 Pulse Ox 95 10/30/24 08:29 Oxygen Delivery Method Room Air 10/30/24 08:29 BMI result Body Mass Index 35.5 Tobacco/Smoking Status: Tobacco use Status Tobacco use date assessed 10/30/24 10/30/24 08:37 Patient Tobacco Use Status Former Tobacco user 10/30/24 08:37 Tobacco use type Cigarette 10/30/24 08:37 e-Cigarette/Vaping Use Never Used 10/30/24 08:37 Thrive Assessment: Date of Thrive Assessment Date Thrive assessed 10/30/24 10/30/24 08:37 Currently or been in a relationship where the following occur: I choose not to answer Coding Level of Care Code Est Pt Level 4 (57727) Diagnoses Diabetes 1.5, managed as type 2 E13.9 Hypertension, essential I10 Lumbar pain M54.50 Chronic GERD K21.9 Class 2 severe obesity due to excess calories with serious comorbidity and body mass index (BMI) of 35.0 to 35.9 in adult E66.01; Z68.35 Obesity classification: adult class 2 (BMI 35 - 39.9) Serious obesity comorbidity presence: with serious comorbidity Body mass index: BMI 35.0-35.9 PAF (paroxysmal atrial fibrillation) I48.0 CLAUDETTE (obstructive sleep apnea) G47.33 Additional Codes RUSTAM-7 Assessment Billing - RUSTAM-7 Assessment Tool: RUSTAM-7 Assessment 40642 ([id number]) Assessment & Plan Assessment & Plan (1) Diabetes 1.5, managed as type 2: Code(s): E13.9 - Other specified diabetes mellitus without complications Category: Medical (2) Hypertension, essential: Code(s): I10 - Essential (primary) hypertension Category: Medical (3) Lumbar pain: Code(s): M54.50 - Low back pain, unspecified Category: Medical (4) Chronic GERD: Code(s): K21.9 - Gastro-esophageal reflux disease without esophagitis Category: Medical (5) Obesity due to excess calories: Code(s): E66.09 - Other obesity due to excess calories Category: Medical Qualifiers: Obesity classification: adult class 2 (BMI 35 - 39.9) Serious obesity comorbidity presence: with serious comorbidity Body mass index: BMI 35.0-35.9 Qualified Code(s): E66.01 - Morbid (severe) obesity due to excess calories; Z68.35 - Body mass index [BMI] 35.0-35.9, adult (6) PAF (paroxysmal atrial fibrillation): Code(s): I48.0 - Paroxysmal atrial fibrillation Category: Medical (7) CLAUDETTE (obstructive sleep apnea): Comment: Severe degree of sleep apnea. The AHI was 46/hr and supine AHI was 56/hr and oxygen guera was 80% Code(s): G47.33 - Obstructive sleep apnea (adult) (pediatric) Category: Medical Plan - The patient is a 63-year-old male presenting for a regular follow-up appointment. - Has a history of atrial fibrillation, recently treated with cardioversion and followed up with cardiology indicating a normal sinus rhythm. Amiodarone, previously prescribed, has been discontinued. - Expressed concerns about significant weight gain attributed to increased soda consumption, with a current BMI of 35.5. Addressed by dietary changes and increased physical activity. - Reports enduring a persistent lumbar muscle strain for several months with no radiation but discomfort exacerbated by certain physical activities. The condition has lasted between 6 to 8 months. - Evaluated on October 13 with normal lab results, including renal function and CBC; however, Hemoglobin A1c recorded at 6.2%, - diabetes, controlled diet and continue medication Problem List - Atrial Fibrillation - Overweight/Obesity (BMI 54.4) - Muscle Strain - History of Amiodarone use - Elevated Hemoglobin A1c (6.2%) - diabetes Patient Instructions - Continue daily one-hour walks for physical activity. - Avoid soda and maintain dietary changes to manage weight. - Use Tylenol Arthritis (650 mg) as recommended for muscle strain pain relief. - Consider physical therapy to assist with lumbar muscle strain. The order for physical therapy is already placed. - Follow-up in four months for reassessment. Orders: Orders XR lumbar spine 2-3V Today M54.50 - Low back pain, unspecified PT Evaluation and Treatment Today M54.50 - Low back pain, unspecified Complete Blood Count Auto Diff 3 Months E13.9 - Other specified diabetes mellitus without complications, E66.01 - Morbid (severe) obesity due to excess calories, G47.33 - Obstructive sleep apnea (adult) (pediatric), I10 - Essential (primary) hypertension, I48.0 - Paroxysmal atrial fibrillation, K21.9 - Gastro-esophageal reflux disease without esophagitis, M54.50 - Low back pain, unspecified, Z68.35 - Body mass index [BMI] 35.0-35.9, adult Comprehensive [place]. Panel Fast 3 Months E13.9 - Other specified diabetes mellitus without complications, E66.01 - Morbid (severe) obesity due to excess calories, G47.33 - Obstructive sleep apnea (adult) (pediatric), I10 - Essential (primary) hypertension, I48.0 - Paroxysmal atrial fibrillation, K21.9 - Gastro-esophageal reflux disease without esophagitis, M54.50 - Low back pain, unspecified, Z68.35 - Body mass index [BMI] 35.0-35.9, adult Lipid Panel 3 Months E13.9 - Other specified diabetes mellitus without complications, E66.01 - Morbid (severe) obesity due to excess calories, G47.33 - Obstructive sleep apnea (adult) (pediatric), I10 - Essential (primary) hypertension, I48.0 - Paroxysmal atrial fibrillation, K21.9 - Gastro-esophageal reflux disease without esophagitis, M54.50 - Low back pain, unspecified, Z68.35 - Body mass index [BMI] 35.0-35.9, adult Hemoglobin A1c 3 Months E13.9 - Other specified diabetes mellitus without complications, E66.01 - Morbid (severe) obesity due to excess calories, G47.33 - Obstructive sleep apnea (adult) (pediatric), I10 - Essential (primary) hypertension, I48.0 - Paroxysmal atrial fibrillation, K21.9 - Gastro-esophageal reflux disease without esophagitis, M54.50 - Low back pain, unspecified, Z68.35 - Body mass index [BMI] 35.0-35.9, adult
--- OUTSIDE RECORDS SUMMARY | 2024-10-30 08:52 | XMS_ITS | Clinical Summary ---
Author Organization 175 [facility] Address 175 [place] [address] Phone Care Team Providers Care Senior Manager Name Role Phone Kristine Perez MD Primary Care Provider [phone] Allergies No known active allergies Encounters Date Type Department Care Team Description 10/19/2024 11:00 AM EST Consult Orthopedic Surgery [place] [address] [phone] Marco Gomez DPM Controlled type 2 diabetes mellitus without complication, without long-term current use of insulin ([facility]) (Primary Dx); Pain in toes of both feet; Ingrown left big toenail; Ingrown right big toenail from Last 3 Months Social History Tobacco Use Types Packs/Day Years Used Date Smoking Tobacco: Never Assessed Sex and Gender Information Value Date Recorded Sex Assigned at Not on file Legal Sex Male 3:29 PM EST Gender Identity Not on file Sexual Orientation Not on file Last Filed Vital Signs Vital Sign Reading Time Taken Comments Blood Pressure - - Pulse - - Temperature - - Respiratory Rate - - Oxygen Saturation - - Inhaled Oxygen Concentration - - Weight 112 kg (246 lb) 10/19/2024 11:04 AM EST Height 180.3 cm (5' 11 ) 10/19/2024 11:04 AM EST Body Mass Index 34.31 10/19/2024 11:04 AM EST Plan of Treatment Upcoming Encounters Date Type Department Care Team (Late st Contact Info) Description 11/19/2024 8:45 AM EDT Office Visit Orthopedic [place] [address] [phone] Marco Gomez DPM [address] [address] Health Maintenance Due Date Last Done Comments Diabetes: Annual GFR (Glomerular Filtration Rate) 1961 Diabetes: Annual Foot Exam 11/13/1971 Diabetes: Annual Retina Eye Exam 11/13/1971 DTaP,Tdap,and Td Vaccines (1 - Tdap) 1980 Pneumococcal Vaccine: 50+ Years (1 of 2 - PCV) 1980 Pneumococcal Vaccine: Pediatrics (0 to 5 Years) and At-Risk Patients (6 to 64 Years) (1 of 2 - PCV) 1980 Zoster Vaccines (1 of 2) 11/13/2011 COVID-19 Vaccine ( season) 2024 08/01/2021, 10/14/2020, 09/15/2020 Cholesterol Screening (Lipid Panel) 08/13/2024 Colorectal Cancer Screening: Colonoscopy 08/13/2024 Depression Screening 08/13/2024 Diabetes: Annual Urine Albumin-Creatinine Ratio (uACR) 08/13/2024 Diabetes: Blood Sugar Control Test (HGBA1C) 08/13/2024 HIV Screening 08/13/2024 Hepatitis C Screening 08/13/2024 Social Influencers of Health Screening 08/13/2024 Hypertension/CHF/CAD Annual BMP Blood Test 10/19/2024 RSV Immunization Patients 60+ Years Old (1 - 1-dose 75+ series) 2036 Influenza Vaccine Completed 06/30/2024, , 07/11/2022, Additional history exists HIB Vaccines Aged Out No longer eligi [...] to complete this topic RSV Immunization Patients Under 20 months Aged Out No longer eligible based on patient's age to complete this topic Varicella Vaccines Aged Out No longer eligible based on patient's age to complete this topic Insurance [facility] [employer] [employer] Care Teams Senior Manager Relationship Specialty Start Date End Date Kristine Perez MD [address] [place] [address] PCP - General Internal Medicine 08/12/24
--- OUTSIDE RECORDS SUMMARY | 2024-10-30 08:52 | XMS_ITS | Encounter Summary ---
Author Organization [facility] Address [address] [place] [phone] Care Team Providers Care Solderer Barrel Ribs Name Role Phone Kristine Perez MD Primary Care Provider Reason for Visit * Reason Comments DM Foot Care Type 2 diabetes faye itus with foot ulcer (CODE) (CMS/[facility]) * Consultation (Routine) - Closed Specialty Diagnoses / Procedures Referred By Lester tyler Referred To Contact Podiatry / Orthopaedic Surgery Diagnoses Type 2 diabetes mellitus with foot ulcer (CODE) ([facility]) Kristine Perez MD [address] [place] [phone] Phone: tel: Marco Gomez DPM [address] [address] Phone: tel: fax: Referral ID Status Reason Start Date Expiration Date V isits Requested Visits Authorized [id number] Closed Specialty Services Required 08/12/2024 08/12/2025 1 1 Encounter Details Date Type Department Care Team (Late st Contact Info) Description 10/19/2024 11:00 AM EST Consult Orthopedic Surgery - [place] [address] [phone] Marco Gomez DPM [address] [address] Controlled type 2 diabetes mellitus without complication, without long-term current use of insulin (CMS/[facility]) (Primary Dx); Pain in toes of both feet; Ingrown left big toenail; Ingrown right big toenail Social History Tobacco Use Types Packs/Day Years Used Date Smoking Tobacco: Never Assessed Sex and Gender Information Value Date Recorded Sex Assigned at Not on file Legal Sex Male 3:29 PM EST Gender Identity Not on file Sexual Orientation Not on file documented as of this encounter Last Filed Vital Signs Vital Sign Reading Time Taken Comments Blood Pressure - - Pulse - - Temperature - - Respiratory Rate - - Oxygen Saturation - - Inhaled Oxygen Concentration - - Weight 112 kg (246 lb) 10/19/2024 11:04 AM EST Height 180.3 cm (5' 11 ) 10/19/2024 11:04 AM EST Body Mass Index 34.31 10/19/2024 11:04 AM EST documented in this encounter Progress Notes * Marco Gomez DPM - 10/19/2024 11:00 AM EST Referring MD: Kristine Perez MD Last PCP visit: 06/30/2024 IDENTIFIER: @TITLE@ Ondina is a 63 y.o. year old male who presents for consultation. CC: Bilateral toe pain HPI: 63-year-old diabetic male presents office chief complaint of pain to the lateral border of the right great toe and at the medial border of the left great toe with redness and swelling. Patient notes he has had ingrown toenail in the past and send procedure. Patient notes recently has been noticing his nails are thickened up at the great toe position. Patient denies any previous trauma ROS: GENERAL: Pt denies nausea, fever, vomiting, chills, or shortness of breath. Pt in NAD. CARDIOLOGY: pt denies chest pain, palpitations LUNGS: pt denies shortness of breath MUSCULOSKELETAL: See HPI, otherwise no joint pain or swelling, back pain, or muscle pain. SKIN: see HPI, otherwise no lesions, rash or itching NEURO: No persistent headache, weakness or numbness The remainder of the review of systems is noncontributory PAST MEDICAL HISTORY: There is no problem list on file for this patient. SOCIAL HISTORY: Social History Tobacco Use Smoking status: Not on file Smokeless tobacco: Not on file Substance Use Topics Alcohol use: Not on file ACTIVE MEDICATIONS: No outpatient medications have been marked as taking for the 10/19/24 encounter (Consult) with Marco Gomez DPM. ALLERGIES: @ALL@ PHYSICAL EXAM: Height 1.803 m (71 ), weight 112 kg (246 lb). PODIATRIC EXAMINATION: GENERAL: Patient appears well nourished, with NAD. VASCULAR: Dorsalis pedis pulses are 2/4 bilaterally and Posterior tibial pulses are 2/4 bilaterally. Capillary filling time within normal limits the digits. No pallor on elevation or rubor on dependency. Positive hair growth. No varicosities. Denies rest pain or claudication pain. NEUROLOGICAL: Sharp/dull sensation intact, protective sensation intact 10/10 with 5.07 semmes rita bilaterally, vibratory sensation with tuning fork intact to the tibial tuberosity. ORTHOPEDIC: Good muscle strength 5/5 of all flexors and extensors. Dorsi flexion of ankle ,10 degrees, plantar flexion WNL. No muscle atrophy. Arthritic changes noted through the midfoot bilaterally.Pain on palpation of the lateral border of the right great toe with redness and swelling. Pain on palpation of the medial border of the left great toe DERMATOLOGICAL:.No open wounds or clinical signs of infection to the toes bilaterally. Normal skin temperature, normal skin turgor. Nails are ingrown at the lateral border of the right great toe and the medial border of the left great toe. BIOMECHANICS: STJ ROM wnl, MTJ ROM wnl, 1st MPJ ROM wnl. IMPRESSION: 1. Controlled type 2 diabetes mellitus without complication, without long-term current use of insulin ([facility]) 2. Pain in toes of both feet 3. Ingrown left big toenail 4. Ingrown right big toenail PLAN: Pt was seen and examined, history reviewed. Patient educated on the importance of good pedal hygiene and tight blood glucose control. Patient encouraged to maintain a healthy lifestyle with a well-balanced diet. Patient should never go barefoot and wear supportive shoe gear. Patient should aim for A1c less than 7% every month. Continue with regular appointments with PMD or sheet metal fabricator for tight medical management Patient with symptoms of ingrowing toenail with associated paronychia. Patients conditioned explained, both conservatively and surgically. Patient opted for conservative treatment. Site irrigated and cleansed today. Slant back was performed to bilateral great toes Patient may return after his upcoming trip for possible matrixectomy at that time Marco Gomez DPM cc: Kristine Perez MD documented in this encounter Plan of Treatment Upcoming Encounters Date Type Department Care Team (Late st Contact Info) Description 11/19/2024 8:45 AM EDT Office Visit Orthopedic Surgery - [place] [address] 175 [facility] 250 [place] [phone] Marco Gomez, DPTiffany 175 [facility] [address] [place] [address] documented as of this encounter Visit Diagnoses Diagnosis Controlled type 2 diabetes mellitus without complication, without long-term current use of insulin ([facility])- Primary Pain in toes of both feet Ingrown left big toenail Ingrowing nail Ingrown right big toenail Ingrowing nail documented in this encounter Orders Outpatient Referral Count Last Ordered Date st Ordered Date AMB REFERRAL TO PODIATRY 1 10/19/2024 documented in this encounter Care Teams Solderer Barrel Ribs Relationship Specialty Start Date End Date Kristine Perez MD 575 [place] [phone] PCP - General Internal Medicine 08/12/24 documented as of this encounter
== END 2024-10-30 08:58 | disposition home or self-care (01) ==
PROVIDERS: PCP Internal Medicine; Visit Provider Internal Medicine
DX: E13.9 Other specified diabetes mellitus without complications (principal); E66.01 Morbid (severe) obesity due to excess calories; I48.0 Paroxysmal atrial fibrillation; Z68.35 Body mass index [BMI] 35.0-35.9, adult; I10 Essential (primary) hypertension; M54.50 Low back pain, unspecified; K21.9 Gastro-esophageal reflux disease without esophagitis; G47.33 Obstructive sleep apnea (adult) (pediatric)

== ENCOUNTER 2024-10-30 08:26 | Outpatient (REF) | payer OTHER, SELFPAY ==
--- NOTE | ~2024-10-30 | XR_ITS ---
EXAMINATION: XR LUMBOSACRAL SPINE CLINICAL INFORMATION: M54.50 - Low back pain, unspecified COMPARISON: None available. TECHNIQUE: Three views of the lumbosacral spine. FINDINGS: No significant scoliosis. Normal lordosis. No subluxations. No compression deformity, acute fracture, or suspicious bone lesion. Mild degenerative disc changes diffusely. Normal facet alignment. Degenerative facet changes most notable L4-S1. Mild osteoarthrosis in the bilateral SI joints. Sacrum appears intact. No soft tissue abnormality aside from mild vascular calcification. XR/XR lumbar spine 2-3V IMPRESSION: 1. No acute lumbar abnormality. 2. Mild to moderate of degenerative spondylosis most significant at L4-S1. Electronically signed by: Alejandro Servin MD 11/02/2024 01:04 PM EDT
--- OUTSIDE RECORDS SUMMARY | 2024-10-30 09:44 | XMS_ITS | Encounter Summary ---
Author Organization [facility] Address [address] [place] [phone] Care Team Providers Care Keyseating Machine Set Up Operator Name Role Phone Kristine Perez MD Primary Care Provider [phone] Reason for Visit * Reason Comments DM Foot Care Type 2 diabetes faye itus with foot ulcer (CODE) (CMS/[facility]) * Consultation (Routine) - Closed Specialty Diagnoses / Procedures Referred By Lester tyler Referred To Contact Podiatry / Orthopaedic Surgery Diagnoses Type 2 diabetes mellitus with foot ulcer (CODE) ([facility]) Kristine Perez MD [address] [place] [phone] Phone: tel: Marco Gomez DPM [address] [address] Phone: tel: fax: Referral ID Status Reason Start Date Expiration Date V isits Requested Visits Authorized [id number] Closed Specialty Services Required 08/12/2024 08/12/2025 1 1 Encounter Details Date Type Department Care Team (Late st Contact Info) Description 10/19/2024 11:00 AM EST Consult Orthopedic Surgery - [place] [address] [phone] Marco Gomez DPM [address] [address] Controlled type 2 diabetes mellitus without complication, without long-term current use of insulin (CMS/[facility]) (Primary Dx); Pain in toes of both [...] for the 10/19/24 encounter (Consult) with Marco Gomze DPM. ALLERGIES: @ALL@ PHYSICAL EXAM: Height 1.803 [...] complication, without long-term current use of insulin ([facility]) 2. Pain in toes of both feet [...] Continue with regular appointments with PMD or inspector printed circuit boards for tight medical management Patient with symptoms [...] AM EDT Office Visit Orthopedic Surgery - [place] 250 175 [facility] 250 [place] [phone] Marco Gomez, DPTiffany 175 [facility] [address] [place] [address] documented as of this encounter Visit Diagnoses Diagnosis Controlled type 2 diabetes mellitus without complication, without long-term current use of insulin ([facility])- Primary Pain in toes of both feet Ingrown left big toenail Ingrowing nail Ingrown right big toenail Ingrowing nail documented in this encounter Orders Outpatient Referral Count Last Ordered Date st Ordered Date AMB REFERRAL TO PODIATRY 1 10/19/2024 documented in this encounter Care Teams Keyseating Machine Set Up Operator Relationship Specialty Start Date End Date Kristine Perez MD [address] [place] [phone] PCP - General Internal Medicine 08/12/24 documented as of this encounter
--- OUTSIDE RECORDS SUMMARY | 2024-10-30 09:44 | XMS_ITS | Clinical Summary ---
Author Organization 175 [facility] Address 175 [place] [address] Phone Care Team Providers Care Guide Delegate Name Role Phone Kristine Perez MD Primary Care Provider [phone] Allergies No known active allergies Encounters Date Type Department Care Team Description 10/19/2024 11:00 AM EST Consult Orthopedic Surgery [place] [address] [phone] Marco Gomez DPM Controlled type 2 diabetes mellitus without complication, without long-term current use of insulin ([facility]) (Primary Dx); Pain in toes of both [...] 11/19/2024 8:45 AM EDT Office Visit Orthopedic [place] [address] [address] Marco Gomez DPM [address] [address] Health Maintenance Due Date Last Done Comments [...] age to complete this topic Insurance [facility] [employer] Care Teams Guide Delegate Relationship Specialty Start Date End Date Kristine Perez MD [address] [place] [address] PCP - General Internal Medicine 08/12/24
== END 2024-10-30 08:27 | disposition home or self-care (01) ==
LOC: HO.HMGCX 08:26
PROVIDERS: PCP Internal Medicine; Visit Provider Internal Medicine
DX: M54.50 Low back pain, unspecified (principal); E13.9 Other specified diabetes mellitus without complications; I10 Essential (primary) hypertension; K21.9 Gastro-esophageal reflux disease without esophagitis; E66.01 Morbid (severe) obesity due to excess calories; Z68.35 Body mass index [BMI] 35.0-35.9, adult; I48.0 Paroxysmal atrial fibrillation; G47.33 Obstructive sleep apnea (adult) (pediatric)
CPT/HCPCS: 72100; 96127

== ENCOUNTER → 2024-10-30 09:12 | Outpatient (BNV) | payer OTHER, SELFPAY | PROVIDERS: PCP Internal Medicine; Visit Provider Radiology Diagnostic Radiology | DX: M54.50 Low back pain, unspecified (principal) | CPT/HCPCS: 72100 ==

== ENCOUNTER 2024-12-22 07:00 | Outpatient (RCR) | payer OTHER, SELFPAY ==
--- NOTE | 2024-11-17 07:59 | MHC.PT.EP ---
[facility] Office [place] Office [place] Office [address] [phone] F: [phone] F: [phone] F: [phone] F: [phone] Physical Therapy Plan of Care Date of Evaluation: 11/17/24 Date of Surgery: Diagnosis: low back pain Assessment: Patient is a 64 year old R handed male who presents with s/s consistent with low back pain. He is retired but walks daily and likes to stay active. Patient past medical history includes cardiac pathology, R shoulder pain. Current impairments include pain, posture, flexibility, ROM, strength, activity tolerance and functional mobility. 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 Patient is motivated with good rehab potential. Skilled PT will address impairments and functional limitations in order to achieve goals. Frequency and Duration: The patient will be seen 2x/week for 5 weeks Short Term Goals: I with HEP - 2 weeks 90/90 lacking < 30 b/l - 3 weeks min tight b/l gastroc - 3 weeks Pain free dressing - 3 weeks Prison Goals: AROM rotation 75% and pain free -5 weeks AROM flex/ext 50% and pain free - 5 weeks Oswestry 10% or less - 5 weeks Able to stand/walk > 2 hours without increased pain - 5 weeks Treatment Plan: Modalities to reduce pain, spasms and effusion. Manual therapy to restore motion and function. Therapeutic exercise to improve strength and flexibility. Neuromuscular re-education for posture and balance. Therapeutic activities to return to functional activities of daily living. Electronically signed by: Juanjose Townsend, PT Please sign and return to therapist. Thank you for your referral.
--- NOTE | 2025-03-16 13:19 | MHC.PT.DC ---
[facility] [place] Office [place] Office [place] Office [address] [phone] F: [phone] F: [phone] F: [phone] F: [phone] Physical Therapy Discharge Report Diagnosis: low back pain Date of Surgery: Date of Evaluation: 11/17/24 Date of Discharge: 01/15/25 Treatments to Date: 6 Cancellations to Date: No Shows to Date: Discharge Status: Improved Function Independent with HEP Discharge Summary: 12/22/24: I with HEP. lacking 26 b/l. min tight b/l gastroc. able to dress pain free. AROM rotation 75% and pain free. Oswestry 12%. Able to stand and walk with minor L piriformis pain. We discussed this and I edu on self TrP release at home. Pt has udpated HEP and is appropriate to d/c to HEP At this time. 12/15/24: pt progressing well still. AROM rotation goal MET. I with HEP. lacking 28 L, 27 R. 12/08/24: pt progressing overall with ROM and flex. AROM rotation 75% and pain free. added hip add and abd today 12/01/24: pt progressed with stretching. compliant with HEP. no new s/s. reduced discomfort overall. good carryover. update HEP NV. 11/24/24: pt progressing well with skilled PT. added stretching. edu on purpose. progress as tolerated. Patient is a 64 year old R handed male who presents with s/s consistent with low back pain. He is retired but walks daily and likes to stay active. Patient past medical history includes cardiac pathology, R shoulder pain. Current impairments include pain, posture, flexibility, ROM, strength, activity tolerance and functional mobility. 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 Patient is motivated with good rehab potential. Skilled PT will address impairments and functional limitations in order to achieve goals. Electronically signed by: Juanjose Townsend, PT Please sign and return to therapist. Thank you for your referral.
== END 2025-03-16 13:19 | disposition home or self-care (01) ==
LOC: HO.PTCHIC 07:00
PROVIDERS: PCP Internal Medicine; Visit Provider Internal Medicine
DX: M54.50 Low back pain, unspecified (principal)
CPT/HCPCS: 97110; 97140; 97162

== ENCOUNTER 2025-01-06 08:53 | Outpatient (AMB) | payer OTHER, SELFPAY ==
--- NOTE | 2025-01-06 08:58 | MHC.OFFVIS ---
Vital Signs 01/06/25 09:00 Height 5 ft 11 in Weight 261 lb 0.437 oz BMI 36.4 BP 130/74 Blood Pressure Location Lt brachial Position Sitting Pulse 67 Pulse Source Monitor Intake Visit Reasons: 4m follow up Intake Note: 4 mth f/up Real Estate Legal Assistant Required: No Accompanied by: Self / Same As Patient Allergies No Known Allergies Allergy (Verified 10/30/24 08:30) Medication List - Last Reconciled 01/06/25 by Guillermo Alcantar MD amlodipine 5 mg PO BEDTIME apixaban (Eliquis) 5 mg PO BID 90 days CPAP As directed glipizide-metformin 2.5-500 mg 1 tab PO BID 90 days hydrochlorothiazide 25 mg PO QAM losartan 50 mg PO DAILY omeprazole 20 mg PO DAILY 90 days HPI Comments Details: Pleasant 64-year-old gentleman who is here follow-up He was seen in the hospital when he presented to short stay surgery for colonoscopy and was found to be in atrial fibrillation. He was completely asymptomatic. He underwent echocardiography which showed normal left ventricular function without any significant valvular pathology. 11/19/22: After discussion he underwent cardioversion. Post cardioversion he was seen in the office and unfortunately was back in atrial fibrillation. He is compliant with Eliquis. He underwent right shoulder surgery uneventfully. We discussed about attempting cardioversion with antiarrhythmic therapy and he was started on Multaq 400 mg twice a day. This was too expensive for him so he did not start Multaq. We decided to start him on flecainide 50 mg twice a day. He underwent successful cardioversion on 11/29/2022. 03/04/23: He returns for follow-up. EKG in the office is showing atrial fibrillation. He is taking flecainide 50 mg twice a day. Has no palpitations or any other symptoms. Post cardioversion he did not feel any different and continue to get some fatigue and shortness of breath with activity. Does not have any significant dyspnea at this point. Overall has been clinically stable. Taking medications regularly. 11/25/23: Nolan is here for follow-up. We initially took a rate control strategy but on follow-up and after discussion with some of his friends he decided to pursue ablation. He was referred to Dr. Gaines. He underwent ablation but went back into atrial fibrillation and was on amiodarone. It appears he went back for 2nd ablation procedure. In September 2024 we cardioverted him again into sinus rhythm. 01/06/25: Nolan returns for follow-up. His EKG in the office is showing sinus rhythm. He is saying he followed up with electrophysiology and discuss with them and he has stopped the amiodarone because he thinks it has not worked for him before and he does not want to take it correction. He does not feel different when he is in atrial fibrillation or sinus rhythm. Currently on no rate control medicines and just taking apixaban for anticoagulation. Blood pressure is well controlled. He has been active and has been building a deck without any exertional issues. [facility] Medical History History of cardioversion Atrial fibrillation status post cardioversion History of cardioversion Atrial fibrillation Osteoarthritis Obesity Tremor of both hands ED (erectile dysfunction) Sleep apnea Diabetes 1.5, managed as type 2 Chronic GERD Hypertension, essential Surgical History Hx of appendectomy H/O cardiac radiofrequency ablation History of shoulder surgery Umbilical hernia History of colonoscopy Family History Father No problems noted. Mother No problems noted. Brother No problems noted. Brother No problems noted. Brother No problems noted. Son No problems noted. Daughter No problems noted. Social History Housing: House Are you a primary foster care therapist to a significant other at home: No Do you presently have visiting nurse or other home services: No Alcohol intake: current Alcohol intake frequency: former alcohol drinker Alcohol type: beer Comment: medicated with po oxycodone Patient Tobacco Use Status: Former Tobacco user Tobacco use type: Cigarette Years Smoked: 12 e-Cigarette/Vaping Use: Never Used Second Hand Smoke Exposure: No service: Yes Current occupational status: retired Cognitive needs: No Hearing needs: No Vision needs: Yes Review of Systems Const Denies chills, Denies fatigue, Denies fever(s), Denies frequent falls, Denies weakness, Denies weight gain and Denies weight loss ENT Denies dizziness Card Denies chest pain, Denies leg edema, Denies lightheadedness, Denies palpitations, Denies dyspnea and Denies dyspnea on exertion Resp Denies cough, Denies dyspnea and Denies dyspnea on exertion GI Denies hematochezia Musc Denies abnormal gait, Denies muscle weakness, Denies numbness, Denies radiating pain into limb and Denies tingling Neuro Denies abnormal gait, Denies dizziness, Denies frequent falls, Denies numbness, Denies tingling and Denies weakness Endo Denies fatigue and Denies palpitations Physical Exam Vital Signs: Last Vital Signs Pulse 67 01/06/25 09:00 BP 130/74 01/06/25 09:00 BMI result Body Mass Index 36.4 GENERAL APPEARANCE: in no acute distress, pleasant. NECK: no carotid bruit, no jugular venous distention. SKIN: no suspicious lesions, warm and dry. HEART: no murmurs, regular rate and rhythm. LUNGS: clear to auscultation bilaterally. ABDOMEN: soft, nontender. EXTREMITIES: no edema. PERIPHERAL PULSES: equal. NEUROLOGIC: No gross deficits, AAO X 3 Office Procedures EKG Details: Sinus rhythm 67 beats per minute with first-degree AV block NE interval 216 milliseconds, rightward axis, inferior infarct, poor R-wave progression and can not rule out anterior infarct, QTC 460 milliseconds. [id number], Complete Assessment & Plan Assessment & Plan (1) Other persistent atrial fibrillation: Code(s): I48.19 - Other persistent atrial fibrillation Category: Medical Plan 64-year-old gentleman who is here for follow-up. He has background history of atrial fibrillation. He underwent ablation twice and was on antiarrhythmic therapy but continued to get atrial fibrillation. He was cardioverted 4 times in the past, last cardioversion was in September 2024. He is off amiodarone at this stage. He has been following with electrophysiology also. We discussed in detail that he does not get symptoms with the atrial fibrillation and previously with rate control strategy he did well. Currently he is in sinus rhythm but we discussed that in case he develops atrial fibrillation again of strategy should be rate control rather than trying to do rhythm control again because we have cardioverted him 4 times and he underwent ablation twice without success. Also he does not feel any different when he is in atrial fibrillation versus sinus rhythm. He has preserved LV function. Patient understands this and is agreeable. He will continue Eliquis for anticoagulation. He will see us back in 6 months. Thank you for allowing me to participate in the care of your patient. Please feel free to contact me if you have any questions. Coding Level of Care Code Est Pt Level 4 (78060) Diagnoses Other persistent atrial fibrillation I48.19 CPT Codes EKG - CPT: 87861-[id number], Complete ([id number])
[2025-01-06 09:00] VITALS: BP 130/74; PULSE 67; BMI 36.4
--- OUTSIDE RECORDS SUMMARY | 2025-01-06 09:18 | XMS_ITS | Clinical Summary ---
Author Organization 175 [facility] Address 175 [place] [address] Phone Care Team Providers Care Safety And Health Manager Name Role Phone Kristine Perez MD Primary Care Provider [phone] Allergies No known active allergies Medications amiodarone (PACERONE) 200 mg tablet Take 1 tablet (200 mg total) by mouth 1 (one) time each day. Active amLODIPine (NORVASC) 10 mg tablet Take 1 tablet (10 mg total) by mouth. at bedtime. 4 Active amoxicillin-cla vulanate (AUGMENTIN) 500-125 mg per tablet Take 1 tablet by mouth 2 (two) times a day. for 5 days 4 Active Eliquis 5 mg tablet Take 1 tablet (5 mg total) by mouth 2 (two) times a day. Active colchicine (COLCRYS) 0.6 mg tablet TAKE 1 TABLET BY MOUTH TWICE DAILY ON DAY ONE THEN TAKE 1 TABLET BY MOUTH EVERY DAY THEN FOLLOW UP WITH PBR 4 Active glipiZIDE-metFO RMIN (METAGLIP) 2.5-500 mg per tablet Take 1 tablet by mouth 2 (two) times a day. Active hydroCHLOROthia zide (HYDRODIURIL) 25 mg tablet Take 1 tablet (25 mg total) by mouth 1 (one) time each day in the morning. Active losartan (COZAAR) 50 mg tablet Take 1 tablet (50 mg total) by mouth 1 (one) time each day. Active omeprazole (PriLOSEC) [address] capsule Take 1 capsule (20 mg total) by mouth 1 (one) time each day. Active ketoconazole (NIZORAL) 2 % cream Apply topically 1 (one) time each day. 60 g 2 5 Active Encounters Date Type Department Care Team Description 12/03/2024 8:15 AM EDT Office Visit Orthopedic Surgery [facility] [address] [phone] Marco Gomez DPM Open wound of right great toe, initial encounter (Primary Dx); Open wound of left great toe, initial encounter; Tinea pedis of both feet 11/19/2024 8:45 AM EDT Office Visit Orthopedic [place] [address] [phone] Marco Gomez DPM Cellulitis of left foot (Primary Dx); Ingrown right big toenail; Ingrown left big toenail; Tinea pedis of both feet 10/19/2024 11:00 AM EST Consult Orthopedic [facility] [address] [phone] Marco Gomez DPM Controlled type 2 diabetes mellitus without complication, without long-term current use of insulin ([facility] V24, [facility] V28) (Primary Dx); Pain in toes of both [...] - - Weight 112 kg (246 lb) 12/03/2024 8:16 AM EDT Height 180.3 cm (5' 10.98 ) 12/03/2024 8:16 AM E DT Body Mass Index 34.33 12/03/2024 8:16 AM EDT Plan of Treatment Upcoming Encounters Date Type Department Care Team (Late st Contact Info) Description 12/06/2025 8:15 AM EDT Office Visit Orthopedic [place] [address] [phone] Marco Gomez DPM [address] [address] Health Maintenance Due Date Last Done Comments [...] Annual BMP Blood Test 10/19/2024 RSV Immunization Adult Patients (1 - 1-dose 75+ series) 2036 Influenza [...] age to complete this topic Meningococcal B Vaccine Aged Out No l onger eligible based on patient's age to complete this topic RSV Immunization Patients Under 20 months Aged Out No longer eligible based on patient's age to complete this topic Varicella Vaccines Aged Out No longer eligible based on patient's age to complete this topic Insurance [facility] Care Teams Safety And Health Manager Relationship Specialty Start Date End Date Kristine Perez MD 5 [place] [id number] PCP - General Internal Medicine 08/12/24
== END 2025-01-06 09:20 | disposition home or self-care (01) ==
LOC: HO.HCS 08:54
PROVIDERS: PCP Internal Medicine; Visit Provider Internal Medicine Cardiovascular Disease
DX: I48.19 Other persistent atrial fibrillation (principal)
CPT/HCPCS: 93010; 99214

== ENCOUNTER → 2025-01-06 08:53 | Outpatient (BNVA) | payer OTHER, SELFPAY | PROVIDERS: PCP Internal Medicine; Visit Provider Internal Medicine Cardiovascular Disease | DX: I48.19 Other persistent atrial fibrillation (principal); Z79.01 Long term (current) use of anticoagulants | CPT/HCPCS: 93005 ==

== ENCOUNTER 2025-03-05 08:01 | Outpatient (AMB) | payer OTHER, SELFPAY ==
--- NOTE | 2025-03-05 07:59 | MHC.PC.OV ---
Intake Visit Reasons: 4m follow up Allergies No Known Allergies Allergy (Verified 10/30/24 08:30) Tobacco use date assessed: 10/30/24 Dental Screening Dental Screen Date: 10/30/24 [facility] Medical History History of cardioversion Atrial fibrillation status post cardioversion History of cardioversion Atrial fibrillation Osteoarthritis Obesity Tremor of both hands ED (erectile dysfunction) Sleep apnea Diabetes 1.5, managed as type 2 Chronic GERD Hypertension, essential Surgical History Hx of appendectomy H/O cardiac radiofrequency ablation History of shoulder surgery Umbilical hernia History of colonoscopy Family History Father No problems noted. Mother No problems noted. Brother No problems noted. Brother No problems noted. Brother No problems noted. Son No problems noted. Daughter No problems noted. Social History Housing: House Are you a primary field care advocate to a significant other at home: No Do you presently have visiting nurse or other home services: No Alcohol intake: current Alcohol intake frequency: former alcohol drinker Alcohol type: beer Comment: medicated with po oxycodone Patient Tobacco Use Status: Former Tobacco user Tobacco use type: Cigarette Years Smoked: 12 e-Cigarette/Vaping Use: Never Used Second Hand Smoke Exposure: No service: Yes Current occupational status: retired Cognitive needs: No Hearing needs: No Vision needs: Yes Questionnaire Thrive Questionnaire Date Thrive assessed: 10/30/24 RUSTAM-7 AMB Questionnaire RUSTAM-7 Date RUSTAM - 7 assessed: 10/30/24 Source: Developed by Drs. Kiko Brasher, Jessie Iniguez, Julio Almazan and colleagues, with an educational lorenzo from [employer]. Physical exam (Primary Care) Tobacco/Smoking Status: Tobacco use Status Tobacco use date assessed 10/30/24 10/30/24 08:37 Patient Tobacco Use Status Former Tobacco user 10/30/24 08:37 Tobacco use type Cigarette 10/30/24 08:37 e-Cigarette/Vaping Use Never Used 10/30/24 08:37 Thrive Assessment: Date of Thrive Assessment Date Thrive assessed 10/30/24 10/30/24 08:37 Coding
--- NOTE | 2025-03-05 08:05 | A.OFFPC_ITS ---
Vital Signs 03/05/25 08:08 Height 5 ft 11 in Weight 206 lb BMI 28.7 BP 120/78 Blood Pressure Location Lt brachial Position Sitting Pulse 65 Pulse Source Pulse Oximeter Pulse Oximetry (%) 98 Oxygen Delivery Method Room Air Intake Visit Reasons: 4m follow up Sap Crm Developer Required: No Accompanied by: Self / Same As Patient Allergies No Known Allergies Allergy (Verified 03/05/25 08:08) Medication List - Last Reviewed 03/05/25 by Israel Garcia CMA amlodipine 5 mg PO BEDTIME apixaban (Eliquis) 5 mg PO BID 90 days CPAP As directed glipizide-metformin 2.5-500 mg 1 tab PO BID 90 days hydrochlorothiazide 25 mg PO QAM losartan 50 mg PO DAILY omeprazole 20 mg PO DAILY 90 days Tobacco use date assessed: 10/30/24 Dental Screening Dental Screen Date: 10/30/24 HPI 4m follow up HPI Details History - The patient is a 64-year-old male pres enting with a request for routine follow-up long-term care - paroxysmal atrial fibrillation: The p atient mentions being in sinus rhythm as per evaluations by his cardiologists in the past month. - Currently taking Eliquis and expresses uncertainty about lifelong cont inuation. Seen Dr. Montemayor quilt maker, patient has undergone 1 ablation and 3 cardioversion and still is in AFib Hypertension: Patient is on hydrochlorothiazide 25 mg and losartan 50 mg and amlodipine 5 mg, blood pressure is controlled Exercising regularly and watching his diet, feeling better GERD is stable with omeprazole He has stopped drinking alcohol since April of 2022 . Obstructive sleep apnea: Using CPAP, for at least 8 hours at night - The patient has a dermatological sharmin rn regarding a benign-appearing skin lesion resembling a large strawberry. Left side of his lower chest - he has another lesion on right forearm , the lesion causes discomfort upon touch and occasionally changes color to white, noted after swimming. - The patient reports that it sometimes raises above the skin level but has not been increasing in size. - Diabetes management was discussed, wit h an A1c of 7.3 recorded recently, up from 6.1 in September. Medications: - Amlodipine 5 mg for hypertension - Glypizide/Metformin 2.5-500 mg BID for Type 2 Diabetes Mellitus - Hydrochlorothiazide 25 mg for hyperten tomasa - Losartan 50 mg for hypertension - Omeprazole 20 mg for gastroesophageal reflux - Eliquis for atrial fibrillation manage ment Social History: - Resides in [place] - Appears proactive in health monitoring and management of chronic conditions - Engages with healthcare providers for specialty consultations as needed Diagnostic Results: - Labs: Today's A1c level is 7.3, previ ously 6.1 in September Problem List - Atrial Fibrillation accessible - Type 2 Diabetes Mellitus - Hypertension - Dermatological lesion - sleep apnea - long-term use of blood thinners Patient Instructions - Continue all current medications as pr escribed. - Consult with a assembler erector for evalu ation of the skin lesion. - Maintain control of diet to manage rhona betes effectively. - fasting tests before the next visit. - Follow-up neurology follow-up in Apr. For sleep apnea Review of Systems - Neurological: No headaches no dizziness - Ear nose throat: No sore throat no hearing difficulty no ear pain - Cardiovascular: No syncope, no chest pain, no palpitations - Gastrointestinal: No nausea vomiting or diarrhea - Endocrine: No polyuria polydipsia no heat intolerance - Genitourinary: No dysuria , no blood in urine Physical Exam General: No acute distress HEENT: No acute findings Neck: Supple Respiratory system: Able to talk in full sentences, no audible wheeze Cardiovascular: S1-S2 regular in rate and rhythm, currently in sinus rhythm Gastrointestinal: No pain Extremities: No new findings, no swelling of ankle RAILROAD HAND: Alert awake oriented x3 motor sensory intact Skin: Normal turgor, noted benign lesion left lower chest and right forearm PFSH Medical History History of cardioversion Atrial fibrillation status post cardioversion History of cardioversion Atrial fibrillation Osteoarthritis Obesity Tremor of both hands ED (erectile dysfunction) Sleep apnea Diabetes 1.5, managed as type 2 Chronic GERD Hypertension, essential Surgical History Hx of appendectomy H/O cardiac radiofrequency ablation History of shoulder surgery Umbilical hernia History of colonoscopy Family History Father No problems noted. Mother No problems noted. Brother No problems noted. Brother No problems noted. Brother No problems noted. Son No problems noted. Daughter No problems noted. Social History Housing: House Are you a primary dog daycare provider to a significant other at home: No Do you presently have visiting nurse or other home services: No Alcohol intake: current Alcohol intake frequency: former alcohol drinker Alcohol type: beer Comment: medicated with po oxycodone Patient Tobacco Use Status: Former Tobacco user Tobacco use type: Cigarette Years Smoked: 12 e-Cigarette/Vaping Use: Never Used Second Hand Smoke Exposure: No service: Yes Current occupational status: retired Cognitive needs: No Hearing needs: No Vision needs: Yes Questionnaire PHQ-9 Over the last 2 weeks, how often have you been bothered by any of the following problems? 1. Little interest or pleasure in doing things: more than half the days 2. Feeling down, depressed, or hopeless: more than half the days 3. Trouble falling or staying asleep, or sleeping too much: more than half the days 4. Feeling tired or having little energy: more than half the days 5. Poor appetite or overeating: more than half the days 6. Feeling bad about yourself - or that you are a failure or have let yourself or your family down: more than half the days 7. Trouble concentrating on things, such as reading the newspaper or watching television: more than half the days 8. Moving or speaking so slowly that other people could have noticed. Or the opposite - being so fidgety or restless that you have been moving around a lot more than usual: more than half the days 9. Thoughts that you would be better off or of hurting yourself in some way: more than half the days Total score: 18 Depression Screening Interpretation: Positive Depression Screening Follow-up: Community Mental Health Worker F/U Depression Screening Done: Yes 09379 - PHQ-9 Billing: Yes Source: Developed by Drs. Kiko Brasher, Jessie Iniguez, Julio Almazan and colleagues, with an educational lorenzo from [employer]. Thrive Questionnaire Date Thrive assessed: 03/05/25 I am a: Patient What is your living situation today?: I choose not to answer this question Within the past 12 months, did the food you bought not last and you didn't have the money to get more?: I choose not to answer this question Within the past 12 months, did you worry whether your food would run out before you got money to buy more?: I choose not to answer this question Do you have trouble paying for medicines?: I choose not to answer this question Do you have trouble getting transportation to medical appointments?: I choose not to answer this question Do you have trouble paying your heating and electricity bill?: I choose not to answer this question Do you have trouble taking care of your child, family member or friend?: I choose not to answer this question Do you have trouble with day-to-day activities such as bathing, preparing meals, shopping, managing finances, etc.?: I choose not to answer this question Are you currently unemployed and looking for a job?: I choose not to answer this question Are you interested in more education?: I choose not to answer this question Please select the resources that you would like help with: None Currently or been in a relationship where the following occur: I choose not to answer THRIVE Score: 0 RUSTAM-7 AMB Questionnaire RUSTAM-7 Date RUSTAM - 7 assessed: 03/05/25 Feeling nervous, anxious, or on edge: 0 = Not at all Not being able to stop or control worryin = Not at all Worrying too much about different things: 0 = Not at all Trouble relaxin = Not at all Being so restless that it is hard to sit still: 0 = Not at all Becoming easily annoyed or irritable: 0 = Not at all Feeling afraid as if something awful might happen: 0 = Not at all Total RUSTAM-7 score (0-4 normal; 5-9 mild; 10-14 moderate; 15-21 severe): 0 Source: Developed by Drs. Kiko Brasher, Jessie Iniguez, Julio Almazan and colleagues, with an educational lorenzo from [employer]. RUSTAM-7 Assessment Billing RUSTAM-7 Assessment Tool: RUSTAM-7 Assessment 31623 Physical exam (Primary Care) Vital Signs: Last Vital Signs Pulse 65 03/05/25 08:08 BP 120/78 03/05/25 08:08 Pulse Ox 98 03/05/25 08:08 Oxygen Delivery Method Room Air 03/05/25 08:08 BMI result Body Mass Index 28.7 Tobacco/Smoking Status: Tobacco use Status Tobacco use date assessed 10/30/24 03/05/25 08:10 Patient Tobacco Use Status Former Tobacco user 03/05/25 08:10 Tobacco use type Cigarette 03/05/25 08:10 e-Cigarette/Vaping Use Never Used 03/05/25 08:10 PHQ-9: PHQ-9 Score PHQ-9: Total score 18 03/05/25 08:20 Depression Screening Interpretation: Positive Depression Screening Follow-up: Community Mental Health Worker F/U Thrive Assessment: Date of Thrive Assessment Date Thrive assessed 03/05/25 03/05/25 08:10 Currently or been in a relationship where the following occur: I choose not to answer Coding Level of Care Code Est Pt Level 4 (65403) Diagnoses Skin cancer screening Z12.83 Diabetes 1.5, managed as type 2 E13.9 Hypertension, essential I10 Chronic GERD K21.9 PAF (paroxysmal atrial fibrillation) I48.0 CLAUDETTE (obstructive sleep apnea) G47.33 Positive depression screening Z13.31 Additional Codes RUSTAM-7 Assessment Billing - RUSTAM-7 Assessment Tool: RUSTAM-7 Assessment 78845 ([id number]) PHQ-9 - 88063 - PHQ-9 Billing: Yes ([id number]) Assessment & Plan Assessment & Plan (1) Skin cancer screening: Code(s): Z12.83 - Encounter for screening for malignant neoplasm of skin Category: Medical (2) Diabetes 1.5, managed as type 2: Code(s): E13.9 - Other specified diabetes mellitus without complications Category: Medical (3) Hypertension, essential: Code(s): I10 - Essential (primary) hypertension Category: Medical (4) Chronic GERD: Code(s): K21.9 - Gastro-esophageal reflux disease without esophagitis Category: Medical (5) PAF (paroxysmal atrial fibrillation): Code(s): I48.0 - Paroxysmal atrial fibrillation Category: Medical (6) CLAUDETTE (obstructive sleep apnea): Comment: Severe degree of sleep apnea. The AHI was 46/hr and supine AHI was 56/hr and oxygen guera was 80% Code(s): G47.33 - Obstructive sleep apnea (adult) (pediatric) Category: Medical (7) Positive depression screening: Code(s): Z13.31 - Encounter for screening for depression Category: Medical Plan - The patient is a 63-year-old male presenting for a regular follow-up appointment. - Has a history of atrial fibrillation, recently treated with cardioversion and followed up with cardiology indicating a normal sinus rhythm. Amiodarone, prev iously prescribed, has been discontinued. - Expressed concerns about significant weight gain attributed to increased soda consumption, with a current BMI of 35.5. Addressed by dietary changes and inc reased physical activity. - Reports enduring a persistent lumbar muscle strain for several months with no radiation but discomfort exacerbated by certain physical activities. The condition has lasted between 6 to 8 months. - Evaluated on October 13 with normal lab results, including renal function and CBC; however, Hemoglobin A1c recorded at 6.2%, - diabetes, controlled diet and continue medication His depression screening is positive as well we will have behavior health coordinator reach out with the patient Problem List - Atrial Fibrillation - Overweight/Obesity (BMI 54.4) - Muscle Strain - History of Amiodarone use - Elevated Hemoglobin A1c (6.2%) - diabetes Patient Instructions - Continue daily one-hour walks for physical activity. - Avoid soda and maintain dietary changes to manage weight. - Use Tylenol Arthritis (650 mg) as recommended for muscle strain pain relief. - Consider physical therapy to assist with lumbar muscle strain. The order for physical therapy is already placed. - Follow-up in four months for reassessment. Orders: Referrals Dermatology Referral Z12.83 - Encounter for screening for malignant neoplasm of skin
--- OUTSIDE RECORDS SUMMARY | 2025-03-05 08:06 | XMS_ITS | Clinical Summary ---
Author Organization 175 [facility] Address [address] [place] [address] Phone Care Team Providers Care Headline Writer Name Role Phone Kristine Perez MD Primary Care Provider [phone] Allergies No known active allergies Medications amiodarone [...] each day. 60 g 2 5 Active Social History Tobacco Use Types Packs/Day Years [...] 12/06/2025 8:15 AM EDT Office Visit Orthopedic Surgery - [place] [address] [phone] Marco Gomez, DPTiffany [address] [address] Health Maintenance Due Date Last Done Comments Diabetes: Annual GFR (Glomerular Filtration Rate) 1961 Diabetes: Annual Foot Exam 11/13/1971 Diabetes: Annual Retina Eye Exam 11/13/1971 DTaP,Tdap,and Td Vaccines (1 - Tdap) 1980 Pneumococcal Vaccine: 50+ Years (1 of 2 - PCV) 1980 Zoster [...] 08/13/2024 Hypertension/CHF/CAD Annual BMP Blood Test 10/19/2024 Influenza Vaccine (#1) 2025 4, 06/21/2023, 07/11/2022, Additional history exists RSV Immunization Adult Patients (1 - 1-dose 75+ series) 2036 HIB [...] age to complete this topic Insurance [facility] Care Teams Headline Writer Relationship Specialty Start Date End Date Kristine Perez MD 5 [place] [address] PCP - General Internal Medicine 08/12/24
[2025-03-05 08:08] VITALS: BP 120/78; PULSE 65; O2SAT 98; BMI 28.7
== END 2025-03-05 08:25 | disposition home or self-care (01) ==
LOC: HO.HMCC 08:02
PROVIDERS: PCP Internal Medicine; Visit Provider Internal Medicine
DX: I48.0 Paroxysmal atrial fibrillation (principal); E13.9 Other specified diabetes mellitus without complications; Z12.83 Encounter for screening for malignant neoplasm of skin; I10 Essential (primary) hypertension; K21.9 Gastro-esophageal reflux disease without esophagitis; G47.33 Obstructive sleep apnea (adult) (pediatric); Z13.31 Encounter for screening for depression

== ENCOUNTER → 2025-03-05 08:01 | Outpatient (BNVA) | payer OTHER, SELFPAY | PROVIDERS: PCP Internal Medicine; Visit Provider Internal Medicine | DX: E13.9 Other specified diabetes mellitus without complications (principal); I10 Essential (primary) hypertension; K21.9 Gastro-esophageal reflux disease without esophagitis; I48.0 Paroxysmal atrial fibrillation; G47.33 Obstructive sleep apnea (adult) (pediatric); Z79.01 Long term (current) use of anticoagulants; Z79.84 Long term (current) use of oral hypoglycemic drugs; Z79.899 Other long term (current) drug therapy; Z99.89 Dependence on other enabling machines and devices; Z13.31 Encounter for screening for depression; Z13.39 Encounter for screening examination for other mental health and behavioral disorders | CPT/HCPCS: 96127 ==

== ENCOUNTER 2025-04-09 07:02 | Outpatient (AMB) | payer OTHER, SELFPAY ==
--- OUTSIDE RECORDS SUMMARY | 2025-04-09 07:04 | XMS_ITS | Clinical Summary ---
Author Organization 175 [facility] Address 175 [place] [address] Phone Care Team Providers Care Skate Shop Attendant Name Role Phone Kristine Perez MD Primary Care Provider [phone] Allergies No known active allergies Medications amiodarone [...] AM EDT Office Visit Orthopedic Surgery - [place] [address] [phone] Marco Gomez, DPTfifany [address] [address] Health Maintenance Due Date Last Done Comments [...] Panel) 08/13/2024 Colorectal Cancer Screening: Colonoscopy 08/13/2024 Diabetes: Annual Urine Albumin-Creatinine Ratio (uACR) 08/13/2024 Diabetes: Blood Sugar Control Test (HGBA1C) 08/13/2024 HIV Screening 08/13/2024 Hepatitis C Screening 08/13/2024 Social Influencers of Health Screening 08/13/2024 Depression Screening 08/26/2024 Hypertension/CHF/CAD Annual BMP Blood Test 10/19/2024 Influenza [...] age to complete this topic Insurance [facility] Care Teams Skate Shop Attendant Relationship Specialty Start Date End Date Kristine Perez MD 5 [place] [address] PCP - General Internal Medicine 08/12/24
--- OUTSIDE RECORDS SUMMARY | 2025-04-09 07:04 | XMS_ITS | Clinical Summary ---
Author Organization [facility] Address [address] [address] Phone Care Team Providers Care Powder Line Repairer Name Role Phone Kristine Perez MD Primary Care Provider [phone] Allergies No known active allergies Medications amLODIPine (NORVASC) 5 MG tablet Take 5 mg by mouth nightly at bedtime. at bedtime. 06/05/2024 Active ELIQUIS 5 mg tablet Take 1 tablet by mouth 2 (two) times a day. 06/05/2024 Active glipiZIDE-metFO RMIN (METAGLIP) 2.5-500 mg per tablet TAKE 2 TABLETS BY MOUTH IN THE MORNING AND 1 TABLET AT NIGHT 12 HOURS APART 06/05/2024 Active hydroCHLOROthia zide 25 MG tablet Take 25 mg by mouth every morning. 06/05/2024 Active losartan (COZAAR) 50 MG tablet Take 1 tablet by mouth every morning. 06/05/2024 Active omeprazole (PRILOSEC) 20 MG capsule Take 1 capsule by mouth every morning. 06/05/2024 Active Active Problems Problem Noted Date Diagnosed Date Benign essential hypertension 02/24/2025 Assessment & Plan (02/24/2025 8:41 AM EDT): Patient is currently managed on amlodipine, hydrochlorothiazide, and losartan. Blood pressure is under good control today. Will continue current management and have him follow-up in 6 months. Plan: Continue amlodipine Continue hydrochlorothiazide Continue losartan Follow-up in 6 months Persistent atrial fibrillation 07/02/2024 Assessment & Plan (02/24/2025 8:40 AM EDT): Patient is status post ablation x 2. His most recent ablation was in June 2024. Patient was previously on amiodarone but has now been weaned off the medication. He is feeling better off of the medicine. He is currently on Eliquis for CVA prophylaxis and is tolerating well. He denies any bleeding issues with Eliquis. Will continue current management and have him return in 6 months. Plan: Continue Eliquis Follow-up in 6 months Assessment & Plan (08/31/2024 12:19 AM EST): Status post redo ablation. Patient currently is in atrial fibrillation. We had a detailed discussion with regards to switching amiodarone with sotalol versus continuing amiodarone. Patient opted to continue on amiodarone. Will request for cardioversion Assessment & Plan (07/02/2024 2:29 PM EST): Notably patient is back in atrial fibrillation. We had a detailed discussion with regards to rate control versus rhythm control with ablation. Patient at this point opted for redo ablation. Risk and benefits of the procedure were discussed in detail On amiodarone therapy 07/02/2024 Assessment & Plan (02/24/2025 8:41 AM EDT): Amiodarone was discontinued. Patient is feeling well off of the medication. He is in normal rhythm today on auscultation. Assessment & Plan (08/31/2024 12:20 AM EST): QTc interval within normal limits. Will continue same dose of amiodarone. Assessment & Plan (07/02/2024 2:30 PM EST): QT duration within normal limits Encounters Date Type Department Care Team Description 02/24/2025 8:00 AM EDT Office Visit [facility] [address] Floor, [address] [place] [address] Destiney Pino DNP Persistent atrial fibrillation (Primary Dx); Benign essential hypertension; On amiodarone therapy from Last 3 Months Social History Tobacco Use Types Packs/Day Years Used Date Smoking Tobacco: Never Passive Smoke Exposure: Never Smokeless Tobacco: Never Tobacco Cessation:Counseling Given: Not Answered Education Answer Date Recorded Are you interested in more education? Not on angeline e 06/17/2024 Are you concerned about learning? Not on file 06/17/2024 No 06/17/2024 No 06/17/2024 Digital Access Answer Date Recorded No 06/17/2024 No 06/17/2024 Reliable internet access at home? Not on file 06/17/2024 Device with a working camera? Not on file Sex and Gender Information Value Date Recorded Sex Assigned at Not on file Legal Sex Male 1:41 PM EDT Gender Identity Not on file Sexual Orientation Not on file Last Filed Vital Signs Vital Sign Reading Time Taken Comments Blood Pressure 136/80 02/24/2025 7:59 AM EDT Pulse 72 02/24/2025 7:59 AM EDT Temperature - - Respiratory Rate - - Oxygen Saturation 97% 02/24/2025 7:59 AM EDT Inhaled Oxygen Concentration - - Weight 117.9 kg (260 lb) 02/24/2025 7:59 AM EDT Height 180.3 cm (5' 10.98 ) 02/24/2025 7:59 AM E DT Body Mass Index 36.28 02/24/2025 7:59 AM EDT Plan of Treatment Upcoming Encounters Date Type Department Care Team (Late st Contact Info) Description 09/08/2025 8:20 AM EST Office Visit [facility] [address] [place] [address] [address]rd Floor, [address] [place] [address] Lavelle Berg MD [address] [place] [address] Health Maintenance Due Date Last Done Comments Adult Td,Tdap Booster 1960 CREATININE LEVEL 1961 LIPID PANEL 1961 POTASSIUM LEVEL 1961 DEPRESSION SCREENING 1973 HEPATITIS C SCREENING 11/13/1979 HIV ONE-TIME SCREENING (18-6 5 YEARS) 11/13/1979 SCREENING FOR DIABETES 1996 COLOGUARD 2006 COLONOSCOPY 2006 COLORECTAL CANCER SCREENING 2006 FIT TEST 2006 FOBT 2006 SIGMOIDOSCOPY 2006 VIRTUAL COLONOSCOPY 2006 PNEUMOCOCCAL VACCINES (50+ y ears) (1 of 1 - PCV) 11/13/2011 ZOSTER VACCINES (1 of 2) 11/13/2011 COVID-19 VACCINE (1 - 2023-2 5 season) 2024 BLOOD PRESSURE 08/27/2025 02/24/2025 RSV VACCINE (1 - 1-dose 75+ series) 2036 SMOKING STATUS SCREENING (On ce After 26 Yrs) Completed 10/23/2024 HEPATITIS A VACCINES Aged Out No long er eligible based on patient's age to complete this topic HIB VACCINES Aged Out No longer eligi ble based on patient's age to complete this topic MENINGOCOCCAL VACCINES (ACWY) Aged Out No longer eligible based on patient's age to complete this topic MENINGOCOCCAL VACCINES (B) Aged Out N o longer eligible based on patient's age to complete this topic Medical Devices Not on file Insurance [facility] HMO [facility] HEALTH PLAN [facility] HMO Member Subscriber Plan / Payer (Ef fective 2021-) Name:Nolan Nj Relation to Subscriber:Self Name:Nolan Nj Payer ID:Not on file Type:HMO Address: [address] HEALTH PLAN [facility] HMO Member Subscriber Plan / Payer (Ef fective 2021-) Name:Nolan Nj Relation to Subscriber:Self Name:Nolan Nj Payer ID:Not on file Type:HMO Address: [address] HEALTH PLAN [facility] HEALTH PLAN [facility] HEALTH PLAN [facility] HMO [facility] HEALTH PLAN Care Teams Powder Line Repairer Relationship Specialty Start Date End Date Kristine Perez MD 1960 [facility] [place] [address] PCP - General Internal Medicine 06/17/24 Additional Source Comments The information contained in this document represents components of the legal health record. It is not the complete legal health record.[facility]
[2025-04-09 07:09] VITALS: BP 112/76; PULSE 80; TEMP 36.9; O2SAT 98; BMI 37.0
--- NOTE | 2025-04-09 07:09 | MHC.OFFWIV ---
Intake Vital Signs 04/09/25 07:09 Height 5 ft 11 in Weight 265 lb 4 oz BMI 37.0 BP 112/76 Blood Pressure Location Rt brachial Position Sitting Pulse 80 Pulse Source Pulse Oximeter Temp 98.4 F Temp Source Oral Pulse Oximetry (%) 98 Oxygen Delivery Method Room Air Intake Visit Reasons: EP RT knee painful and swollen Patient Tobacco Use Status: Former Tobacco user Construction Controller Required: No Allergies No Known Allergies Allergy (Verified 04/09/25 07:11) Do you need a note to return to daycare/school/sports/work: No HPI HPI Comments History of Present Illness Details This is a 64-year-old male with a past medical history of atrial fibrillation currently maintained on Eliquis, [id number] diabetes and hypertension presenting for evaluation of atraumatic right knee pain that he has had for the past 3 weeks. Patient denies any injury or trauma preceding the onset of his symptoms. Patient states the pain is worse at rest after a period of activity such as mowing the lawn. Patient has taken Tylenol only once without relief of his discomfort. Patient states that the pain is not worse with ambulation. He denies having any fevers or chills but states that he will have intermittent swelling in his right anterior knee. [facility] Medical History History of cardioversion Atrial fibrillation status post cardioversion History of cardioversion Atrial fibrillation Osteoarthritis Obesity Tremor of both hands ED (erectile dysfunction) Sleep apnea Diabetes 1.5, managed as type 2 Chronic GERD Hypertension, essential Surgical History Hx of appendectomy H/O cardiac radiofrequency ablation History of shoulder surgery Umbilical hernia History of colonoscopy Family History Father No problems noted. Mother No problems noted. Brother No problems noted. Brother No problems noted. Brother No problems noted. Son No problems noted. Daughter No problems noted. Social History Housing: House Are you a primary lawn care professional to a significant other at home: No Do you presently have visiting nurse or other home services: No Alcohol intake: current Alcohol intake frequency: former alcohol drinker Alcohol type: beer Comment: medicated with po oxycodone Patient Tobacco Use Status: Former Tobacco user Tobacco use type: Cigarette Years Smoked: 12 e-Cigarette/Vaping Use: Never Used Second Hand Smoke Exposure: No service: Yes Current occupational status: retired Cognitive needs: No Hearing needs: No Vision needs: Yes Review of Systems Const Reports no additional complaints, Denies chills and Denies fever(s) Musc Reports no additional complaints, Reports arthralgias (right knee), Reports joint swelling, Reports limited range of motion and Denies numbness Skin/Breast Reports system reviewed and no additional complaints, except as documented Neuro Reports no additional complaints and Denies numbness Physical Exam Vital Signs: Last Vital Signs Temp 98.4 F 04/09/25 07:09 Pulse 80 04/09/25 07:09 BP 112/76 04/09/25 07:09 Pulse Ox 98 04/09/25 07:09 Oxygen Delivery Method Room Air 04/09/25 07:09 BMI result Body Mass Index 37.0 Const General: cooperative, healthy appearing, comfortable, well developed, alert, awake and Physically active Nutritional Appearance: overweight Orientation/consciousness: patient oriented x3 Limitations: no limitations Skin General skin exam: no rashes or lesions noted Lesions: no lesions Trauma: no lacerations or abrasions Wounds: no wounds Neuro General: patient oriented x3 Extrem Right lower extremity: full ROM (passive ROM right knee intact), edema (mild edema right anterior knee lateral > medial, no warmth to touch) and knee Details: tenderness Location: of the lateral joint line and of the distal upper leg Details: laterally; not of the patella, not of the tibial tuberosity, not of the popliteal fossa and not of the lateral joint line and Jeronimo's Test Details: negative medially and laterally; no abrasions, no lacerations, no ecchymosis, no crepitus, no penetrating wound and no unusual warmth; no cyanosis Psych Appearance: grossly normal Mental Status: mental status grossly normal Insight: Good insight present (Psych) Judgement: Good judgement present (Psych) Assessment & Plan Assessment & Plan (1) Right knee pain: Comment: There is no clinical evidence of a joint effusion, septic arthritis or gout. Patient's pain is likely more related to a tendinopathy. Patient will be discharged with a 4 day course of prednisone and he is instructed to obtain a neoprene knee sleeve for support. Patient will follow up with Orthopedics as an outpatient. Code(s): M25.561 - Pain in right knee Qualifiers: Chronicity: acute Qualified Code(s): M25.561 - Pain in right knee Plan: Prednisone 40 mg x 4 days, neoprene knee sleeve for immobilization and stabilization, referral to orthopedics as an outpatient. Orders: Referrals Orthopedics Referral M25.561 - Pain in right knee Medications: New leg brace (Knee Support Brace) As directed 1 ea 0RF right knee strain prednisone 40 mg (2 x 20 mg) PO DAILY 8 tabs 0RF Coding Level of Care Code Est Pt Level 3 (39253) Diagnoses Acute pain of right knee M25.561 Chronicity: acute Time Spent (min) 20
== END 2025-04-09 07:53 | disposition home or self-care (01) ==
PROVIDERS: PCP Internal Medicine; Visit Provider Physician Assistant
DX: M25.561 Pain in right knee (principal)

== ENCOUNTER 2025-05-17 07:52 | Outpatient (AMB) | payer OTHER, SELFPAY ==
--- OUTSIDE RECORDS SUMMARY | 2025-05-17 07:55 | XMS_ITS | Clinical Summary ---
Author Organization [facility] Address 175 [place] [address] Phone Care Team Providers Care Quality Assurance Tester Name Role Phone Kristine Perez MD Primary Care Provider [phone] Allergies No known active allergies Medications amiodarone [...] AM EDT Office Visit [facility] [place] [address] [id number] Marco Gomez, KIMBERLY [address] [address] Health Maintenance Due Date Last Done Comments Diabetes: Annual GFR (Glomerular Filtration Rate) 1961 Diabetes: Annual Foot Exam 11/13/1971 Diabetes: Annual Retina Eye Exam 11/13/1971 DTaP,Tdap,and Td Vaccines (1 - Tdap) 1980 Pneumococcal Vaccine: 50+ Years (1 of 2 - PCV) 1980 Zoster Vaccines (1 of 2) 11/13/2011 Cholesterol Screening (Lipid Panel) 08/13/2024 Colorectal Cancer Screening: Colonoscopy 08/13/2024 Diabetes: Annual Urine Albumin-Creatinine Ratio (uACR) 08/13/2024 Diabetes: Blood Sugar Control Test (HGBA1C) 08/13/2024 HIV Screening 08/13/2024 Hepatitis C Screening 08/13/2024 Social Influencers of Health Screening 08/13/2024 Depression Screening 08/26/2024 Hypertension/CHF/CAD Annual BMP Blood Test 10/19/2024 COVID-19 Vaccine ( season) 2025 08/01/2021, 10/14/2020, 09/15/2020 Influenza Vaccine (#1) 2025 4, 06/21/2023, 07/11/2022, [...] patient's age to complete this topic Insurance [facility] Care Teams Quality Assurance Tester Relationship Specialty Start Date End Date Kristine Perez MD [address] [place] [address] PCP - General Internal Medicine 08/12/24
--- OUTSIDE RECORDS SUMMARY | 2025-05-17 07:55 | XMS_ITS | Clinical Summary ---
Author Organization [facility] Address [address] [address] Phone Care Team Providers Care Supervisor Rough End Name Role Phone Kristine Perez MD Primary Care Provider [phone] Allergies No known active allergies Medications amLODIPine [...] Description 02/24/2025 8:00 AM EDT Office Visit [facility] [address], [address] [place] [address] Destiney Pino DNP Persistent atrial [...] Description 09/08/2025 8:20 AM EST Office Visit [facility] [address] [place] [address] [address] Floor, [address] [place] [address] Lavelle Berg MD [address] [place] [address] Health Maintenance Due Date Last Done Comments [...] 11/13/2011 ZOSTER VACCINES (1 of 2) 11/13/2011 INFLUENZA VACCINE (#1) 2025 COVID-19 VACCINE (1 - 2023-2 5 season) 2025 BLOOD PRESSURE 08/27/2025 02/24/2025 RSV VACCINE (1 [...] topic Medical Devices Not on file Insurance [facility] HMO [facility] Member Subscriber Plan / Payer (Ef fective 2021-Present) Name:Nolan Nj Relation to Subscriber:Self Name:Nolan Nj Payer ID:Not on file Type:O Address: [address] HEALTH PLAN [facility] Member Subscriber Plan / Payer (Ef fective 2021-Present) Name:Nolan Nj Relation to Subscriber:Self Name:Nolan Nj Payer ID:Not on file Type:O Address: [address] [facility] HMO [facility] [place] [address] Care Teams Supervisor Rough End Relationship Specialty Start Date End Date Kristine Perez MD [address] [facility] [place] [address] PCP - General Internal Medicine 06/17/24 Additional Source Comments The information contained in this document represents components of the legal health record. It is not the complete legal health record.[facility]
[2025-05-17 08:05] VITALS: BP 124/80; PULSE 82; O2SAT 97; BMI 35.1
--- NOTE | 2025-05-17 08:05 | A.OFFVIS_ITS ---
Vital Signs 05/17/25 08:05 Height 5 ft 11 in Weight 252 lb BMI 35.1 BP 124/80 Blood Pressure Location Rt brachial Position Sitting Pulse 82 Pulse Source Pulse Oximeter Pulse Oximetry (%) 97 Oxygen Delivery Method Room Air Intake Visit Reasons: Follow up Intake Note: Patient presents for 6 month follow up. Adzing And Boring Machine Operator Required: No Accompanied by: Self / Same As Patient Allergies No Known Allergies Allergy (Verified 05/17/25 08:06) HPI Comments Details: 64-yr-old female presents for follow-up visit of sleep apnea. Pt reports he has undergone interval follow-up cardioversion and ablation for management of a-fib. Since, he states his rate has been well-controlled. He is compliant w/ Ronald. Pt reports he is using his CPAP regularly. Wakes up feeling like he might need 2 more hours sleep, but once he is up and moving he has good energy. Sometimes the PAP tubing collects water condensation- and makes a gurgling sound. he will wake up and shake out the water. He does hang his tubing up in the am. He has never adjusted the CPAP humidification levels. He keeps a regular bedtime and wake-up schedule. He is not walking as much, as he has been having right knee pain and swelling- has an appt w/ Dr Tompkins in May. He reports he has enough CPAP supplies, and is cleaning his supplies regulalry, and using distilled water. Compliance Report Usage 02/16/2025 - 05/16/2025 Usage days 30/30 days (100%) Usage >= 4 hours 30 days (100%) Average usage (days used) 7 hours 41 minutes AirSense 11 AutoSet Serial number [id number] Mode CPAP Set pressure 12 cmH2O EPR Fulltime EPR level 2 Therapy Leaks: * Median: 1.3 L/min * Maximum: 44.7 L/m Events per hour: AHI: 1.0/hr [facility] Medical History (Updated 04/09/25 @ 07:37 by Marisol Tracey PA-C) Right knee pain History of cardioversion Atrial fibrillation status post cardioversion History of cardioversion Atrial fibrillation Osteoarthritis Obesity Tremor of both hands ED (erectile dysfunction) Sleep apnea Diabetes 1.5, managed as type 2 Chronic GERD Hypertension, essential Surgical History Hx of appendectomy H/O cardiac radiofrequency ablation History of shoulder surgery Umbilical hernia History of colonoscopy Family History Father No problems noted. Mother No problems noted. Brother No problems noted. Brother No problems noted. Brother No problems noted. Son No problems noted. Daughter No problems noted. Social History Housing: House Are you a primary clinical care manager to a significant other at home: No Do you presently have visiting nurse or other home services: No Alcohol intake: current Alcohol intake frequency: former alcohol drinker Alcohol type: beer Comment: medicated with po oxycodone Patient Tobacco Use Status: Former Tobacco user Tobacco use type: Cigarette Years Smoked: 12 e-Cigarette/Vaping Use: Never Used Second Hand Smoke Exposure: No service: Yes Current occupational status: retired Cognitive needs: No Hearing needs: No Vision needs: Yes Review of Systems Const All systems reviewed & are unremarkable except as noted in HPI and below Physical Exam Vital Signs: Last Vital Signs Pulse 82 05/17/25 08:05 BP 124/80 05/17/25 08:05 Pulse Ox 97 05/17/25 08:05 Oxygen Delivery Method Room Air 05/17/25 08:05 BMI result Body Mass Index 35.1 Const General: no acute distress Orientation/consciousness: patient oriented x3 HEENT Other: Mallampati stage Resp Effort & Inspection: normal respiratory effort and able to speak in complete sentences Auscultation: clear to auscultation bilaterally Cardio Rate: regular rate Rhythm: regular rhythm Neuro General: patient oriented x3 Psych Mental Status: mental status grossly normal Speech and movement: Clear speech present Attitude: cooperative Results Reviewed Results Reviewed: PAP compliance report- see HPI Assessment & Plan Assessment & Plan (1) CLAUDETTE (obstructive sleep apnea): Comment: Severe degree of sleep apnea. The AHI was 46/hr and supine AHI was 56/hr and oxygen guera was 80% Code(s): G47.33 - Obstructive sleep apnea (adult) (pediatric) Category: Medical Plan Continue CPAP 12 cmH2O nightly > 4 hours, as pt continues to have good clinical effect from use w/ good reduction in residual central and obstructive AHIs. * May try adjusting CPAP humidification level- lower the setting to reduce water accumulation. * Continue to use distilled waterr in CPAP water tank reservoir. * Clean CPAP machine and supplies routinely. * Change CPAP supplies routinely. Pt to contact us or respiratory company with any questions or concerns. Follow-up w/ ortho as scheduled, reducing knee pain s/s will allow pt to resume regular physical exercise- walking qam. Pt to follow-up in 12 months or sooner prn. Coding Level of Care Code Est Pt Level 3 (35207) Diagnoses CLAUDETTE (obstructive sleep apnea) G47.33
== END 2025-05-17 08:53 | disposition home or self-care (01) ==
LOC: HO.HSMS 07:53
PROVIDERS: PCP Internal Medicine; Visit Provider Nurse Practitioner Family
DX: G47.33 Obstructive sleep apnea (adult) (pediatric) (principal)
CPT/HCPCS: 99213

== ENCOUNTER 2025-06-15 07:52 | Outpatient (AMB) | payer OTHER, SELFPAY ==
--- OUTSIDE RECORDS SUMMARY | 2025-06-15 07:55 | XMS_ITS | Clinical Summary ---
Author Organization [facility] Address [address] [address] Phone Care Team Providers Care Company Laundry Worker Name Role Phone Kristine Perez MD Primary Care Provider [phone] Allergies No known active allergies Medications amLODIPine [...] PM EST): QT duration within normal limits Social History Tobacco Use Types Packs/Day Years [...] Description 09/08/2025 8:20 AM EST Office Visit [facility] [address] [place] [address] [address] Floor, [address] [place] [address] Lavelle Berg MD [address] [place] [address] Health Maintenance Due Date Last Done Comments [...] 11/13/2011 INFLUENZA VACCINE (#1) 2025 COVID-19 VACCINE ( - 2024-2 6 season) 2025 BLOOD PRESSURE 08/27/2025 02/24/2025 RSV [...] topic Medical Devices Not on file [facility] Member Subscriber Plan / Payer (Ef fective 2021-Present) Name:Nolan Nj Relation to Subscriber:Self Name:Nolan Nj Payer ID:Not on file Type:O Address: [address] [employer] [place] [address] [place], [place] [address]O Member Subscriber Plan / Payer (Ef fective 2021-) Name:Nolan Nj Relation to Subscriber:Self Name:Nolan Nj Payer ID:Not on file Type:O Address: [address] PL[address] O Member Subscriber Plan / Payer (Ef fective 2021-Present) Name:Nolan Nj Relation to Subscriber:Self Name:Nolan Nj Payer ID:Not on file Type:[facility] Address: [address] [place], [place] [address]O PLAN [facility] PL[facility] Care Teams Company Laundry Worker Relationship Specialty Start Date End Date Kristine Perez MD [address] [facility] [address] PCP - General Internal Medicine 06/17/24 Additional Source Comments The information contained in this document represents components of the legal health record. It is not the complete legal health record.[facility]
--- NOTE | 2025-06-15 07:58 | A.OFFVIS_ITS ---
Vital Signs 06/15/25 08:18 Height 5 ft 11 in Weight 252 lb BMI 35.1 Intake Visit Reasons: Right knee pain and giving way Intake Note: Nolan is a 64 year old male who presents with complaints of progressively worsening right knee pain and giving way. The patient states that he 1st injured his right knee several years ago while playing softball. He twisted his knee and had acute onset of pain along the medial aspect of his knee. The patient states that several months ago he re-injured his knee while walking. He has fallen 3 times over the last few months because of the mechanical symptoms. He has been wearing a knee brace which gives him minimal relief. He has tried Tylenol which gives him no relief. He is not able to take anti-inflammatory medicines because he is on Eliquis. Most of the pain is along the medial and lateral aspects of his knee. He has tried prednisone which gave him only temporary relief. Allergies No Known Allergies Allergy (Verified 06/15/25 08:22) Medication List - Last Reconciled 06/15/25 by Umang Montenegro MD amlodipine 5 mg PO BEDTIME apixaban (Eliquis) 5 mg PO BID 90 days CPAP As directed glipizide-metformin 2.5-500 mg 1 tab PO BID 90 days hydrochlorothiazide 25 mg PO QAM leg brace (Knee Support Brace) As directed losartan 50 mg PO DAILY omeprazole 20 mg PO DAILY 90 days [facility] Medical History Right knee pain History of cardioversion Atrial fibrillation status post cardioversion History of cardioversion Atrial fibrillation Osteoarthritis Obesity Tremor of both hands ED (erectile dysfunction) Sleep apnea Diabetes 1.5, managed as type 2 Chronic GERD Hypertension, essential Surgical History Hx of appendectomy H/O cardiac radiofrequency ablation History of shoulder surgery Umbilical hernia History of colonoscopy Family History Father No problems noted. Mother No problems noted. Brother No problems noted. Brother No problems noted. Brother No problems noted. Son No problems noted. Daughter No problems noted. Social History Housing: House Are you a primary medicare sales executive to a significant other at home: No Do you presently have visiting nurse or other home services: No Alcohol intake: current Alcohol intake frequency: former alcohol drinker Alcohol type: beer Comment: medicated with po oxycodone Patient Tobacco Use Status: Former Tobacco user Tobacco use type: Cigarette Years Smoked: 12 e-Cigarette/Vaping Use: Never Used Second Hand Smoke Exposure: No service: Yes Current occupational status: retired Cognitive needs: No Hearing needs: No Vision needs: Yes Physical Exam Vital Signs: BMI result Body Mass Index 35.1 Const Other: Well-nourished well-developed very friendly male awake alert and oriented x3 in no acute distress Extrem Other: Right knee examination shows a mild effusion, minimal crepitus with range of motion, tenderness along his medial joint line, positive Jeronimo's test, no instability Results Reviewed Results Reviewed: Standing full weight-bearing x-rays of the patient's left knee show mild diffuse joint space narrowing, no acute bony abnormalities Assessment & Plan Assessment & Plan (1) Tear of medial meniscus of right knee: Code(s): S83.241A - Other tear of medial meniscus, current injury, right knee, initial encounter Category: Medical Plan Mr. Nj presents with progressively worsening right knee pain and mechanical symptoms most likely due to a medial meniscus tear. Thus, I will send the patient for an MRI of his right knee for further evaluation. I will see him back once the MRI is completed to discuss the findings and treatment options. Feel free to call me at any time should questions regarding his orthopedic management arise. I spent 20 minutes in reviewing the patient's records and imaging studies, seeing the patient and documenting in the medical record. Orders: Orders XR knee RT 3V Today M25.561 - Pain in right knee MR knee RT wo con 06/16/25 S83.241A - Other tear of medial meniscus, current injury, right knee, initial encounter Coding Level of Care Code New Pt Level 3 (63470) Complex EM visit Add On G2211 Diagnoses Tear of medial meniscus of right knee S83.241A
[2025-06-15 08:18] VITALS: BMI 35.1
== END 2025-06-15 08:36 | disposition home or self-care (01) ==
LOC: HO.HOS 07:52
PROVIDERS: PCP Internal Medicine; Visit Provider Orthopaedic Surgery
DX: S83.241A Other tear of medial meniscus, current injury, right knee, initial encounter (principal)
CPT/HCPCS: 99203; G2211

== ENCOUNTER → 2025-06-15 08:01 | Outpatient (BNV) | payer OTHER, SELFPAY | PROVIDERS: Visit Provider Radiology Diagnostic Radiology | DX: M17.11 Unilateral primary osteoarthritis, right knee (principal) | CPT/HCPCS: 73562 ==

== ENCOUNTER 2025-06-15 08:23 | Outpatient (REF) | payer OTHER, SELFPAY ==
--- NOTE | ~2025-06-15 | XR_ITS ---
EXAMINATION: XR KNEE, RIGHT CLINICAL INFORMATION: M25.561 - Pain in right knee COMPARISON: None available. TECHNIQUE: AP in standing position, lateral and sunrise views of the right knee. FINDINGS: No acute cortical disruption or malalignment. Joint space narrowing involving mostly the medial compartment with sclerosis along the articular surface. Small marginal osteophyte formation and medial femoral condyles and both medial lateral tibial plateau. Small amount of suprapatellar bursa joint effusion. No lytic or blastic lesions. XR/XR knee RT 3V IMPRESSION: Medial compartment osteoarthrosis/osteoarthritis, mild to moderate. Small volume suprapatellar bursa joint effusion. Electronically signed by: Dominic Dinero MD 06/15/2025 08:36 AM EDT
== END 2025-06-15 08:24 | disposition home or self-care (01) ==
LOC: HO.HOSX 08:23
PROVIDERS: Visit Provider Orthopaedic Surgery
DX: S83.241A Other tear of medial meniscus, current injury, right knee, initial encounter (principal); W21.07XA Struck by softball, initial encounter; Y93.64 Activity, baseball
CPT/HCPCS: 73562

== ENCOUNTER 2025-07-02 07:50 | Outpatient (AMB) | payer OTHER, SELFPAY ==
[2025-07-02 07:53] VITALS: BP 122/80; PULSE 76; O2SAT 98; BMI 35.8
--- NOTE | 2025-07-02 07:53 | A.OFFPC_ITS ---
Vital Signs 07/02/25 07:53 Height 5 ft 11 in Weight 257 lb BMI 35.8 BP 122/80 Blood Pressure Location Lt brachial Position Sitting Pulse 76 Pulse Source Pulse Oximeter Pulse Oximetry (%) 98 Intake Visit Reasons: 3m follow up Allergies No Known Allergies Allergy (Verified 07/02/25 07:54) Medication List - Last Reconciled 07/02/25 by Kristine Perez MD amlodipine 5 mg PO BEDTIME apixaban (Eliquis) 5 mg PO BID 90 days CPAP As directed glipizide-metformin 2.5-500 mg 1 tab PO BID 90 days hydrochlorothiazide 25 mg PO QAM leg brace (Knee Support Brace) As directed losartan 50 mg PO DAILY omeprazole 20 mg PO DAILY 90 days Tobacco use date assessed: 10/30/24 Dental Screening Dental Screen Date: 10/30/24 HPI 3m follow up HPI Details History of Present Illness The patient is a 64-year-old male presenting for a 3-month follow-up for chronic conditions and evaluation of right knee pain. Hypertension: - The patient has a history of hypertens ion, which is reportedly well-controlled with a current blood pressure reading of 122/80 mmHg. - He is prescribed amlodipine 5 mg, hydr ochlorothiazide 25 mg, and losartan 50 mg for blood pressure management. Type 2 Diabetes Mellitus: - The patient has type 2 diabetes, manag ed with glipizide-metformin 2.5-500 mg twice daily. - His last HbA1c in September was 6.2%, b ut he reports his diet has been poor for the last four months since he had to stop walking due to knee pain. - He reports missing all of his morning medications yesterday. 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 - He was in normal sinus rhythm at his l ast visit in February but appears to fluctuate between rhythms. - He is prescribed Eliquis, though he mi ssed his morning dose yesterday. - He is asymptomatic, denying dizziness, palpitations, or lightheadedness. Right Knee Pain: - The patient reports progressively wors ening right knee pain, which began suddenly with swelling one day without a specific traumatic event. - He experiences pain on ambulation, a s napping sensation with flexion, and numbness when the knee is fully flexed backward. - An x-ray of the right knee revealed mi yy-pc-esxznamv medial compartment osteoarthritis and a small joint effusion. - An orthopedist suspects a medial menis cus tear based on the clinical examination, and an MRI is pending. Paresthesia of Right Foot: - The patient reports intermittent numbn ess on the bottom of his right foot, which is not believed to be related to his knee condition. - The symptoms are considered potentiall y related to a combination of his diabetes and a history of a pinched nerve in his back. Medical History: - Hypertension - Type 2 Diabetes Mellitus - Gastroesophageal Reflux Disease (GERD) - Persistent Atrial Fibrillation - Obesity (BMI 35.8) - History of pinched nerve in the back - History of shoulder arthritis and burs itis Surgical History: - Prior shoulder procedure for arthritis and bursitis Medications: - Amlodipine 5 mg for hypertension - Hydrochlorothiazide 25 mg for hyperten tomasa - Losartan 50 mg for hypertension - Omeprazole for GERD - Glipizide-metformin 2.5-500 mg, 1 tabl et twice a day for diabetes - Eliquis (apixaban) for atrial fibrilla tion Social History: - Exercise: The patient was walking 4 mi les daily but stopped approximately 4 months ago due to the onset of knee pain. - Diet: Reports his diet has been poor f or the last four months, which he connects to his inability to exercise. - Medication Adherence: Reports missing his morning medications yesterday, including Eliquis, for the first time. Diagnostic Results: - Expii-fz-vxxz HbA1c (today): 7.8% - HbA1c (September): 6.2% - Right Knee X-ray (prior): Showed mild to moderate medial compartment osteoarthritis and a small suprapatellar joint effusion. Problem List - Hypertension - Type 2 Diabetes Mellitus - Gastroesophageal Reflux Disease (GERD) - Persistent Atrial Fibrillation - Obesity - Suspected Medial Meniscus Tear of Righ t Knee - Osteoarthritis of the Right Knee - Follow-up care Plan - Labs: The patient will have a comprehe nsive set of labs drawn today, as the last set was completed in September. - Diabetes Management: In light of the e levated aqglo-xr-kgtw HbA1c of 7.8%, the patient was counseled on improving dietary control. - The patient declined an increase in me dication at this time and will attempt to manage his diet. - Chronic Condition Management: Continue current medications for hypertension, GERD, and atrial fibrillation. - Right Knee Pain: Await the results of the scheduled MRI to confirm the suspected medial meniscus tear and determine the need for surgical intervention. - Follow-up: The patient will return for a follow-up appointment in 3 months. Review of Systems - General: No fever no chills - Neurological: No headaches no dizziness - Ear nose throat: No sore throat no hearing difficulty no ear pain - Cardiovascular: No syncope, no chest pain, no palpitations - Gastrointestinal: No nausea vomiting or diarrhea - Endocrine: No polyuria polydipsia no heat intolerance - Genitourinary: No dysuria , no blood in urine Physical Exam General: No acute distress HEENT: No acute findings Neck: Supple Respiratory system: Able to talk in full sentences, no audible wheeze Cardiovascular: S1-S2 regular in rate and rhythm, currently in sinus rhythm Gastrointestinal: No pain Extremities: Right knee pain with mechanical symptoms SCHEDULING COORDINATOR: Alert awake oriented x3 motor intact Skin: Normal turgor PFSH Medical History Right knee pain History of cardioversion Atrial fibrillation status post cardioversion History of cardioversion Atrial fibrillation Osteoarthritis Obesity Tremor of both hands ED (erectile dysfunction) Sleep apnea Diabetes 1.5, managed as type 2 Chronic GERD Hypertension, essential Surgical History Hx of appendectomy H/O cardiac radiofrequency ablation History of shoulder surgery Umbilical hernia History of colonoscopy Family History Father No problems noted. Mother No problems noted. Brother No problems noted. Brother No problems noted. Brother No problems noted. Son No problems noted. Daughter No problems noted. Social History Housing: House Are you a primary child daycare worker to a significant other at home: No Do you presently have visiting nurse or other home services: No Alcohol intake: current Alcohol intake frequency: former alcohol drinker Alcoh ol type: beer Comment: medicated with po oxycodone Patient Tobacco Use Status: Former Tobacco user Tobacco use type: Cigarette Years Smoked: 12 e-Cigarette/Vaping Use: Never Used Second Hand Smoke Exposure: No service: Yes Current occupational status: retired Cognitive needs: No Hearing needs: No Vision needs: Yes Questionnaire Thrive Questionnaire Date Thrive assessed: 10/30/24 I am a: Patient What is your living situation today?: I choose not to answer this question Within the past 12 months, did the food you bought not last and you didn't have the money to get more?: I choose not to answer this question Within the past 12 months, did you worry whether your food would run out before you got money to buy more?: I choose not to answer this question Do you have trouble paying for medicines?: I choose not to answer this question Do you have trouble getting transportation to medical appointments?: I choose not to answer this question Do you have trouble paying your heating and electricity bill?: I choose not to answer this question Do you have trouble taking care of your child, family member or friend?: I choos e not to answer this question Do you have trouble with day-to-day activities such as bathing, preparing meals, shopping, managing finances, etc.?: I choose not to answer this question Are you currently unemployed and looking for a job?: I choose not to answer this question Are you interested in more education?: I choose not to answer this question Please select the resources that you would like help with: None Currently or been in a relationship where the following occur: I choose not to answer THRIVE Score: 0 AUDIT C Alcohol Use Questionnaire (AUDIT-C) 1. How often do you have a drink containing alcohol?: Monthly or less 2. How many drinks containing alcohol do you have on a typical day when you are drinking?: 1 or 2 3. How often do you have six or more drinks on one occasion?: Less than monthly Total Score: 2 Score Reviewed/Action Taken: Yes RUSTAM-7 AMB Questionnaire RUSTAM-7 Date RUSTAM - 7 assessed: 03/05/25 Source: Developed by Drs. Kiko Brasher, Jessie Iniguez, Julio franz, with an educational lorenzo from [employer]. Physical exam (Primary Care) Vital Signs: Last Vital Signs Pulse 76 07/02/25 07:53 BP 122/80 07/02/25 07:53 Pulse Ox 98 07/02/25 07:53 BMI result Body Mass Index 35.8 Tobacco/Smoking Status: Tobacco use Status Tobacco use date assessed 10/30/24 07/02/25 07:55 Patient Tobacco Use Status Former Tobacco user 07/02/25 07:55 Tobacco use type Cigarette 07/02/25 07:55 e-Cigarette/Vaping Use Never Used 07/02/25 07:55 Thrive Assessment: Date of Thrive Assessment Date Thrive assessed 10/30/24 07/02/25 07:55 Currently or been in a relationship where the following occur: I choose not to answer Office Procedures Flu Questionnaire Does the patient have a severe egg allergy?: No Does the patient have severe life threatening allergies?: No Does the patient have a fever or illness today?: No Has the patient ever had Guillain-Martha Syndrome?: No Has the patient ever had any past reaction to a flu shot?: No Results AMB Hemoglobin A1c AMB Hemoglobin A1c 7.8 % Last Edit by Israel Garcia CMA on 07/02/25 08: 13 Immunizations Fluarix [id number] (PF) 45 mcg (15 mcg x 3)/0.5 mL IM syringe Performing Provider: Kristine Perez MD Performing Location: [facility] Administered by: Israel Garcia CMA on 07/02/25 08:05 Dose Route Admin Location Dispensed Lot Number Expiration Date [facility] Key Holder 0.5 mL IM Right Deltoid 0.5 mL [id number] 02/22/26 [id number] [employer] VIS Given Date VIS Provided VIS Publication Date 07/02/25 Single Vaccine 24 Eligibility Eligibility Date Funding Source Not [facility] Eligible 07/02/25 Private Results Reviewed Results Reviewed: Laboratory Last Values Hgb A1c (Clinic) 7.8 % (4.0-6.0) H 07/02/25 08:04 Coding Level of Care Code Est Pt Level 4 (85102) Diagnoses Diabetes 1.5, managed as type 2 E13.9 Hypertension, essential I10 Chronic GERD K21.9 PAF (paroxysmal atrial fibrillation) I48.0 CLAUDETTE (obstructive sleep apnea) G47.33 Class 2 severe obesity due to excess calories with serious comorbidity and body mass index (BMI) of 35.0 to 35.9 in adult E66.01; Z68.35 Obesity classification: adult class 2 (BMI 35 - 39.9) Serious obesity comorbidity presence: with serious comorbidity Body mass index: BMI 35.0-35.9 Tear of medial meniscus of right knee S83.241A Assessment & Plan Assessment & Plan (1) Diabetes 1.5, managed as type 2: Code(s): E13.9 - Other specified diabetes mellitus without complications Category: Medical (2) Hypertension, essential: Code(s): I10 - Essential (primary) hypertension Category: Medical (3) Chronic GERD: Code(s): K21.9 - Gastro-esophageal reflux disease without esophagitis Category: Medical (4) PAF (paroxysmal atrial fibrillation): Code(s): I48.0 - Paroxysmal atrial fibrillation Category: Medical (5) CLAUDETTE (obstructive sleep apnea): Comment: Severe degree of sleep apnea. The AHI was 46/hr and supine AHI was 56/hr and oxygen guera was 80% Code(s): G47.33 - Obstructive sleep apnea (adult) (pediatric) Category: Medical (6) Obesity due to excess calories: Code(s): E66.09 - Other obesity due to excess calories Category: Medical Qualifiers: Obesity classification: adult class 2 (BMI 35 - 39.9) Serious obesity comorbidity presence: with serious comorbidity Body mass index: BMI 35.0-35.9 Qualified Code(s): E66.01 - Morbid (severe) obesity due to excess calories; Z68.35 - Body mass index [BMI] 35.0-35.9, adult (7) Tear of medial meniscus of right knee: Code(s): S83.241A - Other tear of medial meniscus, current injury, right knee, initial encounter Category: Medical Plan Hypertension: - The patient has a history of hypertension, which is reportedly well-controlled with a current blood pressure reading of 122/80 mmHg. - He is prescribed amlodipine 5 mg, hydrochlorothiazide 25 mg, and losartan 50 mg for blood pressure management. Type 2 Diabetes Mellitus: - The patient has type 2 diabetes, managed with glipizide-metformin 2.5-500 mg twice daily. - His last HbA1c in September was 6.2%, but he reports his diet has been poor for the last four months since he had to stop walking due to knee pain. - He reports missing all of his morning medications yesterday. 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 - He was in normal sinus rhythm at his last visit in February but appears to fluctuate between rhythms. - He is prescribed Eliquis, though he missed his morning dose yesterday. - He is asymptomatic, denying dizziness, palpitations, or lightheadedness. Right Knee Pain: - The patient reports progressively worsening right knee pain, which began suddenly with swelling one day without a specific traumatic event. - He experiences pain on ambulation, a snapping sensation with flexion, and numbness when the knee is fully flexed backward. - An x-ray of the right knee revealed okzh-ql-qdrupeha medial compartment osteoarthritis and a small joint effusion. - An orthopedist suspects a medial meniscus tear based on the clinical examination, and an MRI is pending. Paresthesia of Right Foot: - The patient reports intermittent numbness on the bottom of his right foot, which is not believed to be related to his knee condition. - The symptoms are considered potentially related to a combination of his diabetes and a history of a pinched nerve in his back. Medical History: - Hypertension - Type 2 Diabetes Mellitus - Gastroesophageal Reflux Disease (GERD) - Persistent Atrial Fibrillation - Obesity (BMI 35.8) - History of pinched nerve in the back - History of shoulder arthritis and bursitis Surgical History: - Prior shoulder procedure for arthritis and bursitis Medications: - Amlodipine 5 mg for hypertension - Hydrochlorothiazide 25 mg for hypertension - Losartan 50 mg for hypertension - Omeprazole for GERD - Glipizide-metformin 2.5-500 mg, 1 tablet twice a day for diabetes - Eliquis (apixaban) for atrial fibrillation Social History: - Exercise: The patient was walking 4 miles daily but stopped approximately 4 months ago due to the onset of knee pain. - Diet: Reports his diet has been poor for the last four months, which he connects to his inability to exercise. - Medication Adherence: Reports missing his morning medications yesterday, including Eliquis, for the first time. Diagnostic Results: - Jhkno-hn-jqej HbA1c (today): 7.8% - HbA1c (September): 6.2% - Right Knee X-ray (prior): Showed mild to moderate medial compartment osteoarthritis and a small suprapatellar joint effusion. Problem List - Hypertension - Type 2 Diabetes Mellitus - Gastroesophageal Reflux Disease (GERD) - Persistent Atrial Fibrillation - Obesity - Suspected Medial Meniscus Tear of Right Knee - Osteoarthritis of the Right Knee - Follow-up care Plan - Labs: The patient will have a comprehensive set of labs drawn today, as the last set was completed in September. - Diabetes Management: In light of the elevated zowvz-xa-pfbk HbA1c of 7.8%, the patient was counseled on improving dietary control. - The patient declined an increase in medication at this time and will attempt to manage his diet. - Chronic Condition Management: Continue current medications for hypertension, GERD, and atrial fibrillation. - Right Knee Pain: Await the results of the scheduled MRI to confirm the suspected medial meniscus tear and determine the need for surgical intervention. - Follow-up: The patient will return for a follow-up appointment in 3 months. Orders: Orders Influenza [id number] Immunization Today Z23 - Encounter for immunization AMB Hemoglobin A1c Today Z13.9 - Encounter for screening, unspecified
--- OUTSIDE RECORDS SUMMARY | 2025-07-02 07:53 | XMS_ITS | Clinical Summary ---
Author Organization [address] [facility] Address [address] [place] [address] Phone Care Team Providers Care Section 8 Property Manager Name Role Phone Kristine Perez MD Primary Care Provider [phone] Allergies No known active allergies Medications amiodarone [...] AM EDT Office Visit Orthopedic Surgery - [place] [id number] [phone] Marco Gomez, KIMBERLY [address] [address] Health Maintenance Due Date Last Done Comments Colorectal Cancer Screening: Colonoscopy 1961 Diabetes: Annual GFR (Glomerular Filtration Rate) 1961 Diabetes: Annual Foot Exam 11/13/1971 Diabetes: Annual Retina Eye Exam 11/13/1971 DTaP,Tdap,and Td Vaccines (1 - Tdap) 1980 Pneumococcal Vaccine: 50+ Years (1 of 2 - PCV) 1980 Zoster Vaccines (1 of 2) 11/13/2011 Cholesterol Screening (Lipid Panel) 08/13/2024 Diabetes: Annual Urine Albumin-Creatinine Ratio (uACR) [...] patient's age to complete this topic Insurance [facility] Care Teams Section 8 Property Manager Relationship Specialty Start Date End Date Kristine Perez MD [address] [place] [address] PCP - General Internal Medicine 08/12/24
--- OUTSIDE RECORDS SUMMARY | 2025-07-02 07:53 | XMS_ITS | Clinical Summary ---
Author Organization [facility] Address [address] [address] Phone Care Team Providers Care Treasury Consultant Name Role Phone Kristine Perez MD Primary Care Provider [phone] Allergies No known active allergies Medications amLODIPine [...] Description 09/08/2025 8:20 AM EST Office Visit [facility] [address] [place] [address] 3rd Floor, [address] [place] [address] Lavelle Berg MD [address] [place] [address] Health Maintenance Due Date Last Done Comments [...] topic Medical Devices Not on file Insurance [facility] Member Subscriber Plan / Payer (Ef fective 2021-Present) Name:Nolan Nj Relation to Subscriber:Self Name:Nolan Nj Payer ID:Not on file Type:O Address: [address] [place] [place], [place] [address]O Member Subscriber Plan / Payer (Ef fective 2021-) Name:Nolan Nj Relation to Subscriber:Self Name:Nolan Nj Payer ID:Not on file Type:O Address: [address] PL[address] [place] [facility] Address: [address] [place], [place] [address]O PLAN [facility] Address: [address] [address] [facility] PLAN Care Teams Treasury Consultant Relationship Specialty Start Date End Date Kristine Perez MD [address] [facility] [place] [address] PCP - General Internal Medicine 06/17/24 Additional Source Comments The information contained in this document represents components of the legal health record. It is not the complete legal health record.[facility]
== END 2025-07-02 08:17 | disposition home or self-care (01) ==
LOC: HO.HMCC 07:51
PROVIDERS: PCP Internal Medicine; Visit Provider Internal Medicine
DX: E13.9 Other specified diabetes mellitus without complications (principal); I48.0 Paroxysmal atrial fibrillation; E66.01 Morbid (severe) obesity due to excess calories; Z68.35 Body mass index [BMI] 35.0-35.9, adult; I10 Essential (primary) hypertension; K21.9 Gastro-esophageal reflux disease without esophagitis; G47.33 Obstructive sleep apnea (adult) (pediatric); S83.241A Other tear of medial meniscus, current injury, right knee, initial encounter; Z23 Encounter for immunization

== ENCOUNTER 2025-07-02 07:50 | Outpatient (REF) | payer OTHER, SELFPAY ==
[2025-07-02 10:21] LABS: MANUAL DIFF FLAG NO
[2025-07-02 10:29] LABS: Hematocrit 45.8 % (42.0-52.0); Hemoglobin 15.9 g/dl (14.0-18.0); Imm Gran Abs Auto 0.03 X10*3/uL (0.00-0.03); Imm Gran Pct Auto 0.4 % (0.0-0.4); Lymphocytes Absolute Auto 1.6 X10*3/uL (1.2-4.9); Mean Corpuscular HGB Conc 34.7 g/dl (31.0-36.0); Mean Corpuscular Hemoglobin 30.3 pg (27.0-33.0); Mean Corpuscular Volume 87.2 fL (80.0-98.0); NRBC Abs Auto 0.000 X10*3/uL (0.0-0.012); NRBC Pct Auto 0.0 /100WBC (0.0-0.2); Platelet Count 196 X10*3/uL (160-400); Red Blood Count 5.25 X10*6/uL (4.60-5.80); White Blood Count 7.0 X10*3/uL (4.8-10.8)
[2025-07-02 10:53] LABS: Alanine Aminotransferase 29 U/L (0-40); Albumin Level 4.3 g/dL (3.5-5.0); Alkaline Phosphatase 46 U/L (39-117); Anion Gap 15 (12-20); Aspartate Amino Transferase 27 U/L (5-37); Blood Urea Nitrogen 9 mg/dL (9-16); Calcium 9.2 mg/dL (8.4-10.2); Carbon Dioxide 26 mmol/L (22-29); Chloride 102 mmol/L (96-108); Cholesterol 181 mg/dL (<200); Estimated Glomerular Filt Rate > 60; HDL Cholesterol 46 mg/dL (>40); Potassium 4.1 mmol/L (3.3-5.1); Sodium 139 mmol/L (135-145); Total Protein 6.6 g/dL (6.5-8.0); Triglycerides 200 mg/dL (<150)
== END 2025-07-02 07:51 | disposition home or self-care (01) ==
LOC: HO.HMGCLDS 07:50
PROVIDERS: PCP Internal Medicine; Visit Provider Internal Medicine
DX: I10 Essential (primary) hypertension (principal); E13.9 Other specified diabetes mellitus without complications; K21.9 Gastro-esophageal reflux disease without esophagitis; E66.01 Morbid (severe) obesity due to excess calories; I48.0 Paroxysmal atrial fibrillation; G47.33 Obstructive sleep apnea (adult) (pediatric); M54.50 Low back pain, unspecified; I48.91 Unspecified atrial fibrillation; R20.2 Paresthesia of skin; S83.241A Other tear of medial meniscus, current injury, right knee, initial encounter; X58.XXXA Exposure to other specified factors, initial encounter; Y93.9 Activity, unspecified; Y92.9 Unspecified place or not applicable; Y99.9 Unspecified external cause status; Z23 Encounter for immunization; Z68.35 Body mass index [BMI] 35.0-35.9, adult
CPT/HCPCS: 36415; 80053; 80061; 83036; 85025; 90471; 90656

== ENCOUNTER 2025-07-16 13:37 | Outpatient (AMB) | payer OTHER, SELFPAY ==
--- NOTE | 2025-07-16 13:56 | A.OFFVIS_ITS ---
Vital Signs 07/16/25 13:58 Height 5 ft 11 in Weight 252 lb 10.396 oz BMI 35.2 BP 90/56 L Blood Pressure Location Lt brachial Position Sitting Pulse 94 Pulse Source Pulse Oximeter Intake Visit Reasons: 6 mth fu Intake Note: 6 mth f/up Manager Pacu Required: No Accompanied by: Self / Same As Patient Allergies No Known Allergies Allergy (Verified 07/02/25 07:54) Medication List - Last Reconciled 07/16/25 by REMY Lorenz amlodipine 5 mg PO BEDTIME apixaban (Eliquis) 5 mg PO BID 90 days CPAP As directed glipizide-metformin 2.5-500 mg 1 tab PO BID 90 days hydrochlorothiazide 25 mg PO QAM leg brace (Knee Support Brace) As directed losartan 50 mg PO DAILY omeprazole 20 mg PO DAILY 90 days HPI HPI 6 mth fu: Details: Nolan is a 64-year-old male with past medical history of hypertension, diabetes, sleep apnea, obesity, recurrent persistent atrial fibrillation following 4 cardioversions, antiarrhythmic use and 2 atrial fibrillation ablations. His last ablation was done early June [address] Gaines. He now presents for follow-up. Today he reports that he has been in sinus rhythm and then when he saw his PCP recently she noted an irregular heartbeat. He says he is not feeling any different with sinus rhythm versus atrial fibrillation. He denies any shortness of breath, no PND, orthopnea or edema. He has no chest discomfort at rest or with activity. No lightheadedness, presyncope, syncope, falls. He hurt his right knee so he has not been doing his usual walking. Prior to the injury he was walking close to an hour per day for exercise. Has no bleeding issues with use of Eliquis. He is compliant with his CPAP mask. [facility] Medical History Right knee pain History of cardioversion Atrial fibrillation status post cardioversion History of cardioversion Atrial fibrillation Osteoarthritis Obesity Tremor of both hands ED (erectile dysfunction) Sleep apnea Diabetes 1.5, managed as type 2 Chronic GERD Hypertension, essential Surgical History Hx of appendectomy H/O cardiac radiofrequency ablation History of shoulder surgery Umbilical hernia History of colonoscopy Family History Father No problems noted. Mother No problems noted. Brother No problems noted. Brother No problems noted. Brother No problems noted. Son No problems noted. Daughter No problems noted. Social History Housing: House Are you a primary care process manager to a significant other at home: No Do you presently have visiting nurse or other home services: No Alcohol intake: current Alcohol intake frequency: former alcohol drinker Alcohol type: beer Comment: medicated with po oxycodone Patient Tobacco Use Status: Former Tobacco user Tobacco use type: Cigarette Years Smoked: 12 e-Cigarette/Vaping Use: Never Used Second Hand Smoke Exposure: No service: Yes Current occupational status: retired Cognitive needs: No Hearing needs: No Vision needs: Yes Review of Systems Const All systems reviewed & are unremarkable except as noted in HPI and below Denies chills, Denies fatigue, Denies fever(s), Denies frequent falls, Denies weakness, Denies weight gain and Denies weight loss ENT Denies dizziness Card Denies chest pain, Denies leg edema, Denies lightheadedness, Denies palpitations, Denies dyspnea and Denies dyspnea on exertion Resp Denies cough, Denies dyspnea and Denies dyspnea on exertion GI Denies hematochezia Musc Denies abnormal gait, Denies muscle weakness, Denies numbness, Denies radiating pain into limb and Denies tingling Neuro Denies abnormal gait, Denies dizziness, Denies frequent falls, Denies numbness, Denies tingling and Denies weakness Endo Denies fatigue and Denies palpitations Physical Exam Vital Signs: Last Vital Signs Pulse 94 07/16/25 13:58 BP 90/56 L 07/16/25 13:58 BMI result Body Mass Index 35.2 Const General: cooperative, healthy appearing, comfortable and no acute distress Orientation/consciousness: patient oriented x3 Neck Neck: Yes normal visual inspection and Yes no JVD Resp Effort & Inspection: normal respiratory effort Auscultation: clear to auscultation bilaterally, no crackles, no rales, no rhonchi and no wheezes Cardio Rate: regular rate Rhythm: abnormal rhythm Heart sounds: S1 normal heart sound present, S2 normal heart sound present, no murmurs and no rubs Neuro General: patient oriented x3 Extrem General: Yes normal to inspection, No no pedal edema and No calf tenderness Psych Appearance: grossly normal Mental Status: mental status grossly normal Speech and movement: Normal speech and movement present Office Procedures EKG Details: Today, read by me atrial fibrillation, inferior Q-waves, can not exclude prior anterior infarct, rate 82, QTC 427 milliseconds [id number], Complete Assessment & Plan Assessment & Plan (1) Persistent atrial fibrillation: Code(s): I48.19 - Other persistent atrial fibrillation Category: Medical Plan: Initial finding of atrial fibrillation 03/02/2022 when he came for colonoscopy. Echocardiogram done 03/08/2022 showed EF 60-65%, mildly dilated left atrium, normal valves. Since that time he has undergone 4 cardioversions with recurrent atrial fibrillation, even with use of antiarrhythmic. He has undergone 2 atrial fibrillation ablations, one on 12/12/2023 and a repeat done early 2023. On follow-up here he did have EKG showing atrial fibrillation however on last visit he was actually in sinus rhythm. Now PCP reported irregular heart rate. EKG today does confirm atrial fibrillation, rate 82. He is asymptomatic. Will plan to treat with heart rate control. Will start on metoprolol XL 25 mg daily. Blood pressure on low side so will have him hold amlodipine for now. Will check Holter monitor in 2 weeks. Cardiology follow-up in 4 months, sooner if needed. (2) Sleep apnea: Comment: cpap Code(s): G47.30 - Sleep apnea, unspecified Category: Medical Plan: Compliant with CPAP. Follows with Sleep Medicine (3) Hypertension, essential: Code(s): I10 - Essential (primary) hypertension Category: Medical Plan: Blood pressure goal less than 130/80. Initially low today at 90/56 however recheck done by me was 108/ 62. I am having him start on metoprolol so will place amlodipine on hold. Office blood pressure check 2 weeks. Plan I discussed with the patient that the current heart rhythm is atrial fibrillation, consistent with the primary care provider's findings. I explained that given the history of two prior ablations with recurrence, and that the patient is asymptomatic, our goal will shift from rhythm control to rate control. I recommended starting low-dose metoprolol to ensure the heart rate does not go too fast. Given the in-office blood pressure of 108/62 mmHg, I advised putting amlodipine on hold to prevent the combined blood pressure-lowering effects of both medications. I ordered a Holter monitor to assess heart rate control, to be worn about 2 weeks after initiating metoprolol. We will arrange a follow-up appointment in a couple of weeks solely for a blood pressure evaluation. I acknowledged the patient's difficulty with Holter monitor adhesives and advised requesting extra stickers. Orders: Orders ECG 3 day holter monitor 2 Weeks I48.0 - Paroxysmal atrial fibrillation Medications: New metoprolol succinate ER 25 mg PO DAILY 30 tabs 5RF On Hold amlodipine Hold Comment: BP low 5 mg PO BEDTIME 90 tabs 1RF Patient Instructions: - Your heart is in atrial fibrillation again, but you are not experiencing symptoms from it. - We will manage this with medication to control your heart rate rather than trying to restore a normal rhythm at this time. - Stop taking your amlodipine medication for now. - Start taking the new prescription, metoprolol, as directed. - Continue all your other current medications, including your blood thinner. - We will be sending an order for a heart monitor (Holter monitor) for you. - After you have been taking the metoprolol for two weeks, please wear the heart monitor as instructed to see if the medicine is working well. - Please let the staff know that you may need extra stickers to keep the monitor in place. - Please return to the clinic in a couple of weeks for a blood pressure check. - Continue to follow up with your other doctor for your knee pain and go for your scheduled MRI. Patient was informed and verbally consented to the use of an ambient scribe for clinic note documentation during this visit. Visit time spent on chart review, interview, assessment, orders, documentation. Coding Level of Care Code Est Pt Level 4 (08108) Complex visit Add On G2211 Diagnoses Persistent atrial fibrillation I48.19 Sleep apnea G47.30 Hypertension, essential I10 CPT Codes EKG - CPT: 29982-[id number], Complete ([id number]) Time Spent (min) 30
[2025-07-16 13:58] VITALS: BP 90/56; PULSE 94; BMI 35.2
--- OUTSIDE RECORDS SUMMARY | 2025-07-16 14:02 | XMS_ITS | Clinical Summary ---
Author Organization [facility] Address [address] [address] Phone Care Team Providers Care Tank Truck Loader Name Role Phone Kristine Perez MD Primary Care Provider [phone] Allergies No known active allergies Medications amLODIPine [...] Description 09/08/2025 8:20 AM EST Office Visit [facility] [address] [place] [address] 3rd Floor, [address] [place] [address] Lavelle Berg MD [address] [place] [id number] [email or web address] Health Maintenance Due Date Last Done Comments [...] Devices Not on file [facility] Member Subscriber Plan / Payer (Ef fective 2021-Present) Name:Nolan Nj Relation to Subscriber:Self Name:Nolan Nj Payer ID:Not on file Type:O Address: [address] [employer] PL[address] [place], [place] [address]O Member Subscriber Plan / Payer (Ef fective 2021-) Name:Nolan Nj Relation to Subscriber:Self Name:Nolan Nj Payer ID:Not on file Type:O Address: [address] PL[address] O Member Subscriber Plan / Payer (Ef fective 2021-Present) Name:Nolan Nj Relation to Subscriber:Self Name:Nolan Nj Payer ID:Not on file Type:[facility] Address: [address] [place], [place] [address]O PLAN [facility] Care Teams Tank Truck Loader Relationship Specialty Start Date End Date Kristine Perez MD [address] [facility] [place] [address] PCP - General Internal Medicine 06/17/24 Additional Source Comments The information contained in this document represents components of the legal health record. It is not the complete legal health record.[facility]
--- OUTSIDE RECORDS SUMMARY | 2025-07-16 14:02 | XMS_ITS | Clinical Summary ---
Author Organization 175 [facility] Address 175 [place] [address] Phone Care Team Providers Care Accordion Tuner Name Role Phone Kristine Perez MD Primary Care Provider [phone] Allergies No known active allergies Medications amiodarone [...] AM EDT Office Visit [facility] [place] [address] [phone] Marco Gomez, KIMBERLY [address] [place] [address] [address] Health Maintenance Due Date Last Done Comments [...] patient's age to complete this topic Insurance [facility] Care Teams Accordion Tuner Relationship Specialty Start Date End Date Kristine Perez MD [address] [place] [address] PCP - General Internal Medicine 08/12/24
== END 2025-07-16 14:41 | disposition home or self-care (01) ==
LOC: HO.HCS 13:38
PROVIDERS: PCP Internal Medicine; Visit Provider Nurse Practitioner Family
DX: I48.19 Other persistent atrial fibrillation (principal); G47.30 Sleep apnea, unspecified; I10 Essential (primary) hypertension
CPT/HCPCS: 93010; 99214; G2211

== ENCOUNTER → 2025-07-16 13:37 | Outpatient (BNVA) | payer OTHER, SELFPAY | PROVIDERS: PCP Internal Medicine; Visit Provider Nurse Practitioner Family | DX: I10 Essential (primary) hypertension (principal); I48.19 Other persistent atrial fibrillation | CPT/HCPCS: 93005 ==

== ENCOUNTER → 2025-07-20 07:19 | Outpatient (BNV) | payer OTHER, SELFPAY | PROVIDERS: PCP Internal Medicine; Visit Provider Radiology Diagnostic Ultrasound | DX: S83.241A Other tear of medial meniscus, current injury, right knee, initial encounter (principal); M25.411 Effusion, right shoulder | CPT/HCPCS: 73721 ==

== ENCOUNTER 2025-07-20 07:20 | Outpatient (REF) | payer OTHER, SELFPAY ==
--- NOTE | ~2025-07-20 | MR_ITS ---
EXAMINATION: MR KNEE WITHOUT CONTRAST, RIGHT CLINICAL INFORMATION: Knee pain. Medial meniscal injury. Patient reports no prior knee surgery. COMPARISON: X-ray 06/15/2025 TECHNIQUE: MRI of the knee without contrast was performed using routine sequences on a high-field scanner. FINDINGS: MENISCI: Medial Meniscus: Degeneration of posterior horn, with femoral and tibial articular surface and free edge fraying/ill-defined tear.. Degenerative signal in the body. Lateral Meniscus: Fraying and tear of the anterior root. Degeneration in the anterior horn. LIGAMENTS: Cruciate: ACL and PCL are intact. Collateral: Mild edema associated the MCL could be secondary to the soft tissue edema versus mild sprain. Intact LCL complex. EXTENSOR MECHANISM: Intact ARTICULAR CARTILAGE/BONE: Patellofemoral Compartment: Mild arthritis. Nonuniform chondral thinning and subchondral cysts in the trochlea. Medial Compartment: Mild-moderate arthritis. 1.4 cm focus of full-thickness chondral loss in the weightbearing femoral condyle, subchondral edema. Lateral Compartment: No significant chondral loss. No acute fracture. JOINT FLUID AND BURSAE: Small-moderate effusion. Low signal foci in the posterior joint, suggestive of synovitis/debris/loose bodies. Trace Larkin's cyst. Subcutaneous edema. MR/MR knee RT wo con IMPRESSION: * Degenerative fraying/tear of the medial meniscal posterior horn. * Fraying/tear of the anterior root of the lateral meniscus. * Mild patellofemoral, mild/moderate medial compartment, arthritis. * Small-moderate effusion. Low signal foci in the posterior joint space from synovitis/debris/loose bodies. *MCL findings could reflect reactive edema versus sprain. Electronically signed by: Davidson Jasso MD 07/21/2025 08:20 AM [facility]
--- OUTSIDE RECORDS SUMMARY | 2025-07-20 07:25 | XMS_ITS | Clinical Summary ---
Author Organization [facility] Address [address] [address] Phone Care Team Providers Care Pugger Helper Name Role Phone Kristine Perez MD Primary Care Provider [phone] Allergies No known active allergies Medications amLODIPine [...] Description 09/08/2025 8:20 AM EST Office Visit [facility] [address] [place] [address] [address]rd Floor, [address] [place] [address] Lavelle Berg MD [address] [place] [address] Health Maintenance Due Date Last Done Comments [...] topic Medical Devices Not on file Insurance [facility] Member Subscriber Plan / Payer (Ef fective 2021-Present) Name:Nolan Nj Relation to Subscriber:Self Name:Nolan Nj Payer ID:Not on file Type:O Address: [address] [place], [place] [address]O Member Subscriber Plan / Payer (Ef fective 2021-) Name:Nolan Nj Relation to Subscriber:Self Name:Nolan Nj Payer ID:Not on file Type:O Address: [address] [facility] Address: [address] [place], [place] [address]O PLAN [facility] Address: [address] [address] [facility] PLAN Care Teams Pugger Helper Relationship Specialty Start Date End Date Kristine Perez MD [address] [facility] [place] [address] PCP - General Internal Medicine 06/17/24 Additional Source Comments The information contained in this document represents components of the legal health record. It is not the complete legal health record.[facility]
--- OUTSIDE RECORDS SUMMARY | 2025-07-20 07:25 | XMS_ITS | Clinical Summary ---
Author Organization 175 [facility] Address 175 [place] [address] Phone Care Team Providers Care Telephone Worker Name Role Phone Kristine Perez MD Primary Care Provider [phone] Allergies No known active allergies Medications amiodarone [...] AM EDT Office Visit [facility] [place] [address] [phone] Marco Gomez, KIMBERLY [address] [address] Health Maintenance Due Date Last Done Comments [...] this topic Insurance [facility] Care Teams Telephone Worker Relationship Specialty Start Date End Date Kristine Perez MD [address] [place] [address] PCP - General Internal Medicine 08/12/24
== END 2025-07-20 07:21 | disposition home or self-care (01) ==
LOC: HO.MRI 07:20
PROVIDERS: PCP Internal Medicine; Visit Provider Orthopaedic Surgery
DX: S83.241A Other tear of medial meniscus, current injury, right knee, initial encounter (principal)
CPT/HCPCS: 73721

== ENCOUNTER 2025-08-04 07:41 | Outpatient (AMB) | payer OTHER, SELFPAY ==
--- NOTE | 2025-08-04 07:43 | A.OFFVIS_ITS ---
Intake Visit Reasons: Right knee pain and giving way Intake Note: oNlan is a 64 year old male who presents with complaints of progressively worsening right knee pain and giving way. The patient states that he 1st injured his right knee several years ago while playing softball. He twisted his knee and had acute onset of pain along the medial aspect of his knee. The patient states that several months ago he re-injured his knee while walking. He has fallen 3 times over the last few months because of the mechanical symptoms. He has been wearing a knee brace which gives him minimal relief. He has tried Tylenol which gives him no relief. He is not able to take anti-inflammatory medicines because he is on Eliquis. Most of the pain is along the medial and lateral aspects of his knee. He has tried prednisone which gave him only temporary relief. Allergies No Known Allergies Allergy (Verified 08/04/25 07:45) Medication List - Last Reconciled 08/04/25 by Umang Montenegro MD amlodipine 5 mg PO BEDTIME Held on 07/16/25. Instructions: BP low apixaban (Eliquis) 5 mg PO BID 90 days CPAP As directed glipizide-metformin 2.5-500 mg 1 tab PO BID 90 days hydrochlorothiazide 25 mg PO QAM leg brace (Knee Support Brace) As directed losartan 50 mg PO DAILY metoprolol succinate ER 25 mg PO DAILY omeprazole 20 mg PO DAILY 90 days [facility] Medical History Right knee pain History of cardioversion Atrial fibrillation status post cardioversion History of cardioversion Atrial fibrillation Osteoarthritis Obesity Tremor of both hands ED (erectile dysfunction) Sleep apnea Diabetes 1.5, managed as type 2 Chronic GERD Hypertension, essential Surgical History Hx of appendectomy H/O cardiac radiofrequency ablation History of shoulder surgery Umbilical hernia History of colonoscopy Family History Father No problems noted. Mother No problems noted. Brother No problems noted. Brother No problems noted. Brother No problems noted. Son No problems noted. Daughter No problems noted. Social History Housing: House Are you a primary customer care voice consultant to a significant other at home: No Do you presently have visiting nurse or other home services: No Alcohol intake: current Alcohol intake frequency: former alcohol drinker Alcohol type: beer Comment: medicated with po oxycodone Patient Tobacco Use Status: Former Tobacco user Tobacco use type: Cigarette Years Smoked: 12 e-Cigarette/Vaping Use: Never Used Second Hand Smoke Exposure: No service: Yes Current occupational status: retired Cognitive needs: No Hearing needs: No Vision needs: Yes Physical Exam Const Other: Well-nourished well-developed very friendly male awake alert and oriented x3 in no acute distress Extrem Other: Right knee examination shows a mild effusion, mild crepitus with range of motion, tenderness along his medial joint line, positive Jeronimo's test, no instability Results Reviewed Results Reviewed: Standing full weight-bearing x-rays of the patient's right knee show mild diffuse degenerative changes, no acute bony abnormalities MRI of the patient's right knee shows mild to moderate degenerative changes as well as a medial meniscus tear Assessment & Plan Assessment & Plan (1) Tear of medial meniscus of right knee: Code(s): S83.241A - Other tear of medial meniscus, current injury, right knee, initial encounter Category: Medical Plan Mr. Nj presents with progressively worsening right knee pain and mechanical symptoms due to early degenerative joint disease as well as a medial meniscus tear. I had a lengthy discussion with the patient regarding the treatment options. At this point he has failed continued non operative treatments. The risks and benefits of right knee arthroscopic surgery were discussed at length with the patient. The patient wishes to proceed with surgery. Surgery will involve right knee arthroscopic partial medial meniscectomy. He does understand that he may not get 100% relief of his symptoms depending on the severity of his degenerative changes. He will follow up as instructed. Feel free to call me at any time should questions regarding his orthopedic management arise. I spent 22 minutes in reviewing the patient's records and imaging studies, seeing the patient and documenting in the medical record. Coding Level of Care Code Est Pt Level 3 (22120) Complex visit Add On G2211 Diagnoses Tear of medial meniscus of right knee S83.241A
--- OUTSIDE RECORDS SUMMARY | 2025-08-04 07:59 | XMS_ITS | Clinical Summary ---
Author Organization 175 [facility] Address 175 [place] [address] Phone Care Team Providers Care Cooking Show Host Name Role Phone Kristine Perez MD Primary Care Provider [phone] Allergies No known active allergies Medications amiodarone [...] AM EDT Office Visit Orthopedic Surgery [place] [address] [phone] Marco Gomez, KIMBERLY [address] [address] Health Maintenance Due Date Last Done Comments [...] patient's age to complete this topic Insurance [facility] Care Teams Cooking Show Host Relationship Specialty Start Date End Date Kristine Perez MD [address] [place] [address] PCP - General Internal Medicine 08/12/24
--- OUTSIDE RECORDS SUMMARY | 2025-08-04 08:01 | XMS_ITS | Clinical Summary ---
Author Organization [facility] Address [address] [address] Phone Care Team Providers Care Outside Sales Executive Name Role Phone Kristine Perez MD Primary Care Provider [phone] Allergies No known active allergies Medications amLODIPine [...] Description 09/08/2025 8:20 AM EST Office Visit [facility] [address] [place] [address] 3rd Floor, [address] [place] [address] Lavelle Berg MD [address] [place] [phone] [email or web address] Health Maintenance Due Date Last Done Comments [...] Devices Not on file Insurance [facility] Member Subscriber Plan / Payer (Ef fective 2021-Present) Name:Nolan Nj Relation to Subscriber:Self Name:Nolan Nj Payer ID:Not on file Type:O Address: [address] [place] [address] [place] [address]O Member Subscriber Plan / Payer (Ef fective 2021-) Name:Nolan Nj Relation to Subscriber:Self Name:Nolan Nj Payer ID:Not on file Type:O Address: [address] PLAN O Member Subscriber Plan / Payer (Ef fective 2021-Present) Name:Nolan Nj Relation to Subscriber:Self Name:Nolan Nj Payer ID:Not on file Type:[facility] Address: [address] [place], [place] [address]O PLAN [facility] Care Teams Outside Sales Executive Relationship Specialty Start Date End Date Kristine Perez MD [address] [place] [address] PCP - General Internal Medicine 06/17/24 Additional Source Comments The information contained in this document represents components of the legal health record. It is not the complete legal health record.[facility]
== END 2025-08-04 08:03 | disposition home or self-care (01) ==
LOC: HO.HOS 07:41
PROVIDERS: PCP Internal Medicine; Visit Provider Orthopaedic Surgery
DX: S83.241A Other tear of medial meniscus, current injury, right knee, initial encounter (principal)
CPT/HCPCS: 99214; G2211

== ENCOUNTER 2025-08-13 12:23 | Outpatient (AMB) | payer OTHER, SELFPAY ==
--- NOTE | 2025-08-13 12:24 | MHC.PC.OV ---
Vital Signs 08/13/25 12:25 Height 5 ft 11 in Weight 264 lb BMI 36.8 BP 118/74 Blood Pressure Location Lt brachial Position Sitting Respiration 16 Pulse 81 Pulse Source Pulse Oximeter Temp 97.7 F Temp Source Oral Pulse Oximetry (%) 99 Oxygen Delivery Method Room Air Intake Visit Reasons: pre op Software Database Architect Required: No Allergies No Known Allergies Allergy (Verified 08/13/25 12:25) Medication List - Last Reconciled 08/13/25 by Kristine Perez MD amlodipine 5 mg PO BEDTIME Held on 07/16/25. Instructions: BP low apixaban (Eliquis) 5 mg PO BID 90 days CPAP As directed glipizide-metformin 2.5-500 mg 1 tab PO BID 90 days hydrochlorothiazide 25 mg PO QAM leg brace (Knee Support Brace) As directed losartan 50 mg PO DAILY metoprolol succinate ER 25 mg PO DAILY omeprazole 20 mg PO DAILY 90 days Tobacco use date assessed: 08/13/25 Dental Screening Dental Screen Date: 08/13/25 HPI HPI Comments History of Present Illness Details History The patient is a 64 year old male presenting for preoperative clearance for a planned right knee meniscal repair. Meniscal Tear, Right Knee: - The patient is scheduled for an arthroscopic meniscal repair of the right knee at [facility]. - He reports increasing pain with walking while awaiting the procedure, describing it as strenuous. Atrial Fibrillation: - The patient has a history of atrial fibrillation, for which he has undergone cardioversion and two ablations. - He is followed by cardiology every four months, with his last appointment being about three weeks ago. - He has been cleared for surgery by his air plant engineer. Hypertension: - The patient's medications include losartan and hydrochlorothiazide. - About three weeks ago at a cardiology appointment, his blood pressure was found to be low at 90/50-60 mmHg. - As a result, his air plant engineer held his amlodipine and started him on metoprolol 25 mg. - His blood pressure is now reportedly around 118 mmHg systolic. Type 2 Diabetes Mellitus: - The patient's last hemoglobin A1c was 7.8% in June. - He was taking a glipizide-metformin combination tablet, which he reports is no longer being manufactured. Hyperlipidemia: - His last LDL was 95. Medical History: - Atrial fibrillation, status post cardioversion and two ablations - Type 2 diabetes mellitus - Hypertension - Hyperlipidemia Diagnostic Results: - Labs (Jul 02): CBC was within normal limits; electrolytes and kidney function were intact. - Hemoglobin A1c (Jun): 7.8%. - Lipids: LDL was 95; liver enzymes were stable. - TSH (early this year): Within normal limits. Medications - Amlodipine (on hold) - Eliquis - Glipizide-Metformin combination tablet - Hydrochlorothiazide - Losartan - Metoprolol 25 mg - Omeprazole PFSH Medical History Right knee pain History of cardioversion Atrial fibrillation status post cardioversion History of cardioversion Atrial fibrillation Osteoarthritis Obesity Tremor of both hands ED (erectile dysfunction) Sleep apnea Diabetes 1.5, managed as type 2 Chronic GERD Hypertension, essential Surgical History Hx of appendectomy H/O cardiac radiofrequency ablation History of shoulder surgery Umbilical hernia History of colonoscopy Family History Father No problems noted. Mother No problems noted. Brother No problems noted. Brother No problems noted. Brother No problems noted. Son No problems noted. Daughter No problems noted. Social History Housing: House Are you a primary day care assistant to a significant other at home: No Do you presently have visiting nurse or other home services: No Alcohol intake: current Alcohol intake frequency: former alcohol drinker Alcohol type: beer Comment: medicated with po oxycodone Patient Tobacco Use Status: Former Tobacco user Tobacco use type: Cigarette Years Smoked: 12 e-Cigarette/Vaping Use: Never Used Second Hand Smoke Exposure: No service: Yes Current occupational status: retired Cognitive needs: No Hearing needs: No Vision needs: Yes Questionnaire Thrive Questionnaire Date Thrive assessed: 10/30/24 I am a: Patient What is your living situation today?: I choose not to answer this question Within the past 12 months, did the food you bought not last and you didn't have the money to get more?: I choose not to answer this question Within the past 12 months, did you worry whether your food would run out before you got money to buy more?: I choose not to answer this question Do you have trouble paying for medicines?: I choose not to answer this question Do you have trouble getting transportation to medical appointments?: I choose not to answer this question Do you have trouble paying your heating and electricity bill?: I choose not to answer this question Do you have trouble taking care of your child, family member or friend?: I choose not to answer this question Do you have trouble with day-to-day activities such as bathing, preparing meals, shopping, managing finances, etc.?: I choose not to answer this question Are you currently unemployed and looking for a job?: I choose not to answer this question Are you interested in more education?: I choose not to answer this question Currently or been in a relationship where the following occur: I choose not to answer THRIVE Score: 0 RUSTAM-7 AMB Questionnaire RUSTAM-7 Date RUSTAM - 7 assessed: 03/05/25 Source: Developed by Drs. Kiko Brasher, Jessie Iniguez, Julio Almazan and colleagues, with an educational lorenzo from [employer]. Physical exam (Primary Care) Vital Signs: Last Vital Signs Temp 97.7 F 08/13/25 12:25 Pulse 81 08/13/25 12:25 Resp 16 08/13/25 12:25 BP 118/74 08/13/25 12:25 Pulse Ox 99 08/13/25 12:25 Oxygen Delivery Method Room Air 08/13/25 12:25 BMI result Body Mass Index 36.8 Tobacco/Smoking Status: Tobacco use Status Tobacco use date assessed 08/13/25 08/13/25 12:30 Patient Tobacco Use Status Former Tobacco user 08/13/25 12:30 Tobacco use type Cigarette 08/13/25 12:30 e-Cigarette/Vaping Use Never Used 08/13/25 12:30 Thrive Assessment: Date of Thrive Assessment Date Thrive assessed 10/30/24 08/13/25 12:30 Currently or been in a relationship where the following occur: I choose not to answer Coding Level of Care Code Est Pt Level 4 (43176) Diagnoses Pre-op evaluation Z01.818 Tear of medial meniscus of right knee, current, unspecified tear type, subsequent encounter S83.241D Tear current or old: current Encounter type: subsequent encounter Meniscus tear of knee type: unspecified type Diabetes 1.5, managed as type 2 E13.9 Other persistent atrial fibrillation I48.19 Blood thinned due to long-term anticoagulant use Z79.01 Assessment & Plan Assessment & Plan (1) Pre-op evaluation: Code(s): Z01.818 - Encounter for other preprocedural examination Category: Medical (2) Tear of medial meniscus of right knee: Code(s): S83.241A - Other tear of medial meniscus, current injury, right knee, initial encounter Category: Medical Qualifiers: Tear current or old: current Encounter type: subsequent encounter Meniscus tear of knee type: unspecified type Qualified Code(s): S83.241D - Other tear of medial meniscus, current injury, right knee, subsequent encounter (3) Diabetes 1.5, managed as type 2: Code(s): E13.9 - Other specified diabetes mellitus without complications Category: Medical (4) Other persistent atrial fibrillation: Code(s): I48.19 - Other persistent atrial fibrillation Category: Medical (5) Blood thinned due to long-term anticoagulant use: Code(s): Z79.01 - terminal gauger (current) use of anticoagulants Category: Medical Plan Problem List - Preoperative examination - Atrial fibrillation - Essential hypertension - Type 2 diabetes mellitus - Hyperlipidemia - Osteoarthritis of the right knee Plan 1. Preoperative Examination - The patient is considered stable and cleared for his upcoming right knee meniscal repair. - This is based on his clinical stability, recent lab results, and prior clearance from his air plant engineer. 2. Type 2 Diabetes Mellitus - The patient's glipizide-metformin combination tablet will be discontinued as it is no longer manufactured. - New prescriptions for glipizide and metformin will be sent as separate tablets, to be taken twice daily. - A potential switch to Farxiga was discussed for its cardioprotective benefits, but the patient declined due to high co-pay, opting to continue with the separate glipizide and metformin prescriptions. - The patient was advised to monitor his blood sugar levels. 3. Hypertension - Amlodipine will remain on hold and will be removed from his active medication list due to a recent episode of hypotension. - Management of metoprolol and blood thinners (Eliquis) will be deferred to the patient's air plant engineer. - The patient was advised to purchase a home blood pressure monitor to track his readings, maintain a log, and bring both the log and the machine to his appointments for calibration and review. Medical Decision Making The patient is a 64-year-old male who presented for preoperative clearance for a right knee meniscal repair. His medical history is notable for atrial fibrillation, hypertension, and type 2 diabetes. He has already received surgical clearance from his air plant engineer, which is a clement factor in this assessment. Review of his recent history revealed an episode of hypotension at a cardiology visit, which was appropriately managed by holding amlodipine and initiating metoprolol. His blood pressure has since stabilized. He was counseled on the importance of home blood pressure monitoring for better long-term management. Regarding his diabetes management, his glipizide-metformin combination tablet is no longer manufactured. While a switch to Farxiga was considered for its cardioprotective benefits, the patient declined due to cost concerns. Therefore, the plan is to continue his current regimen by prescribing glipizide and metformin separately. Given that the patient is clinically stable, has no new complaints, and has been cleared by cardiology, he is deemed a suitable candidate for the planned surgery. Cardio note recommend to hold blood thinner 48 hours before procedure Medications: New glipizide ER 2.5 mg PO BID 180 tabs 1RF 90 days metformin ER (Glucophage XR) 500 mg PO BID 180 tabs 0RF 90 days Discontinued amlodipine Discontinued Reason: Doctor's Order 5 mg PO BEDTIME 90 tabs 1RF glipizide-metformin 2.5-500 mg Discontinued Reason: Doctor's Order 1 tab PO BID 90 days 180 tabs 1RF
[2025-08-13 12:25] VITALS: BP 118/74; PULSE 81; RESP 16; TEMP 36.5; O2SAT 99; BMI 36.8
--- OUTSIDE RECORDS SUMMARY | 2025-08-13 14:18 | XMS_ITS | Clinical Summary ---
Author Organization [facility] Address [address] [address] Phone Care Team Providers Care Director Of Science Name Role Phone Kristine Perez MD Primary Care Provider [phone] Allergies No known active allergies Medications amLODIPine [...] Description 09/08/2025 8:20 AM EST Office Visit [facility] [address] [facility] 3rd Floor, [address] [place] [address] Lavelle Berg MD [address] [place] [id number] Health Maintenance Due Date Last Done Comments [...] VACCINE (#1) 2025 COVID-19 VACCINE (1 - 2024-2 6 season) 2025 BLOOD PRESSURE [...] Devices Not on file Insurance [facility] Member Subscriber Plan / Payer (Ef fective 2021-Present) Name:Nolan Nj Relation to Subscriber:Self Name:Nolan Nj Payer ID:Not on file Type:O Address: [address] HEALTH PLAN O Member Subscriber Plan / Payer ( fective 2021-) Name:Nolan Nj Relation to Subscriber:Self Name:Nolan Nj Payer ID:Not on file Type:O Address: [place] [id number] [facility] [address] [place], [place] [id number] Member Subscriber Plan / Payer (Ef fective 2021-Present) Name:Nolan Nj Relation to Subscriber:Self Name:Nolan Nj Payer ID:Not on file Type:O Address: [address] [place], [place] [address]O Member Subscriber Plan / Payer (Ef fective 2021-Present) Name:Nolan Nj Relation to Subscriber:Self Name:Ondina Nolan Payer ID:Not on file Type:O Address: [address] [place], [place] [address]O [facility] Address: [address] HEALTH PLAN Care Teams Director Of Science Relationship Specialty Start Date End Date Kristine Perez MD [facility] [address] PCP - General Internal Medicine 06/17/24 Additional Source Comments The information contained in this document represents components of the legal health record. It is not the complete legal health record.[facility]
--- OUTSIDE RECORDS SUMMARY | 2025-08-13 14:18 | XMS_ITS | Clinical Summary ---
Author Organization [facility] Address [address] [place] [address] Phone Care Team Providers Care Business Supervisor Name Role Phone Kristine Perez MD Primary Care Provider [phone] Allergies No known active allergies Medications amiodarone [...] AM EDT Office Visit [facility] [place] [address] [phone] Marco Gomez, KIMBERLY [address] [address] Health Maintenance Due Date Last Done Comments [...] to complete this topic Insurance [facility] Care Teams Business Supervisor Relationship Specialty Start Date End Date Kristine Perez MD [address] [place] [address] PCP - General Internal Medicine 08/12/24
== END 2025-08-13 13:22 | disposition home or self-care (01) ==
LOC: HO.HMCC 12:24
PROVIDERS: PCP Internal Medicine; Visit Provider Internal Medicine
DX: Z01.818 Encounter for other preprocedural examination (principal); S83.241D Other tear of medial meniscus, current injury, right knee, subsequent encounter; E13.9 Other specified diabetes mellitus without complications; I48.19 Other persistent atrial fibrillation; Z79.01 Long term (current) use of anticoagulants

== ENCOUNTER → 2025-08-20 07:58 | Outpatient (REF) | payer OTHER, SELFPAY ==
--- OUTSIDE RECORDS SUMMARY | 2025-08-20 08:02 | XMS_ITS | Clinical Summary ---
Author Organization [facility] Address 175 [place] [address] Phone Care Team Providers Care Poured Concrete Wall Technician Name Role Phone Kristine Perez MD Primary Care Provider [phone] Allergies No known active allergies Medications amiodarone [...] AM EDT Office Visit [facility] [place] [address] [phone] Marco Gomez, KIMBERLY [address] [address] Health Maintenance Due Date Last Done Comments [...] patient's age to complete this topic Insurance [facility] Care Teams Poured Concrete Wall Technician Relationship Specialty Start Date End Date Kristine Perez MD [address] [place] [address] PCP - General Internal Medicine 08/12/24
--- OUTSIDE RECORDS SUMMARY | 2025-08-20 08:02 | XMS_ITS | Clinical Summary ---
Author Organization [facility] Address [address] [address] Phone Care Team Providers Care Cone Sewer Name Role Phone Kristine Perez MD Primary Care Provider [phone] Allergies No known active allergies Medications amLODIPine [...] Description 09/08/2025 8:20 AM EST Office Visit [facility] [address] [facility] [address]rd Floor, [address] [place] [address] Lavelle Berg MD [address] [place] [phone] [email or web address] Health Maintenance Due Date Last Done Comments [...] Devices Not on file Insurance [facility] HEALTH PLAN [facility] Member Subscriber Plan / Payer (Ef fective 2021-Present) Name:Nolan Nj Relation to Subscriber:Self Name:Nolan Nj Payer ID:Not on file Type:O Address: [address] HEALTH PLAN O Member Subscriber Plan / Payer ( fective 2021-) Name:Nolan Nj Relation to Subscriber:Self Name:Nolan Nj Payer ID:Not on file Type:O Address: [place] [id number] [facility] [address] [place], [place] [address]O Member Subscriber Plan / Payer (Ef fective 2021-Present) Name:Nolan Nj Relation to Subscriber:Self Name:Nolan Nj Payer ID:Not on file Type:O Address: [address] [place], [place] [address]O Member Subscriber Plan / Payer (Ef fective 2021-Present) Name:Nolan Nj Relation to Subscriber:Self Name:Ondina Nolan Payer ID:Not on file Type:O Address: [address] [place], [place] [address]O Member Subscriber Plan / Payer (Ef fective 2021-Present) Name:Nolan Nj Relation to Subscriber:Self Name:Nolan Nj Payer ID:Not on file Type:[place] Address: [address] HEALTH PLAN Care Teams Cone Sewer Relationship Specialty Start Date End Date Kristine Perez MD [facility] [place] [address] PCP - General Internal Medicine 06/17/24 Additional Source Comments The information contained in this document represents components of the legal health record. It is not the complete legal health record.[facility]
== END ==
LOC: HO.CARD 07:58
PROVIDERS: PCP Internal Medicine; Visit Provider Nurse Practitioner Family
DX: I48.0 Paroxysmal atrial fibrillation (principal)
CPT/HCPCS: 93242

== ENCOUNTER → 2025-08-20 08:01 | Outpatient (BNV) | payer OTHER, SELFPAY | PROVIDERS: PCP Internal Medicine; Visit Provider Internal Medicine Cardiovascular Disease | DX: I48.91 Unspecified atrial fibrillation (principal) | CPT/HCPCS: 93244 ==